=== PATIENT | male | born 1945 | race Caucasian/White ===

== ENCOUNTER 2023-10-04 06:14 | Day surgery (SDC) | payer MEDICARE, SELFPAY ==
[2023-10-04] VITALS (12 sets, daily range): BP systolic 117–144; BP diastolic 69–101; BMI 25.7
[2023-10-04 09:11] LABS: ACT-LR - POC 252 Seconds (116-155)
[2023-10-04 09:33] LABS: ACT-LR - POC 318 Seconds (116-155)
--- NOTE | 2023-10-04 12:22 | ITS.CL.ABL ---
Judicial Reporter - Ablation
Ablation
Procedure Report:
Procedure Report:
PVC / VT ablation:
Mr. Fields is a very pleasant 78 yr old gentleman with highly symptomatic with high burden of PVC with history of SVT /AVNRT who had been managed medically presented today to the EP lab for PVC/VT and SVT ablation
Date of the Procedure:
10/04/2023
Indications:
High burden of symptomatic PVCs, tachycardia and supraventricular tachycardia
Pre-Operative Diagnosis:
Premature ventricular contractions, supraventricular tachycardia
Post-Operative Diagnosis:
Premature ventricular contractions, supraventricular tachycardia (AVNRT) and atrial fibrillation
Procedure Performed:
PVC / Ventricular tachycardia �LVOT ablation
SVT ablation � LVOT / aortic cusp
Cardioversion for atrial fibrillation
Performing Physician:
Lexus Cordova MD
Anesthesia:
See anesthesia records.
Detailed Description of the Procedure:
Written informed consent was obtained from the patient after a full explanation of the risks and benefits of the procedure including the risks of sedation and anesthesia. The patient was brought to the electrophysiology laboratory in stable
condition in fasting state. Continuous electrocardiographic and hemodynamic monitoring was initiated.
The initial rhythm was normal sinus rhythm with PVCs.
The procedure site was meticulously prepared with surgical scrub and allowed to dry with no pooling. Sterile draping was applied to cover the procedure site. The image intensifier was draped with sterile bag and positioned over the patient. After
infusion of local anesthetic, vascular access was obtained under ultrasound guidance and sheaths were placed over guide wire as detailed below.
Sheath and Catheter Placement:
The following catheters / sheaths were placed
Sheaths:
��������������� 8Fr long sheath in right femoral artery
���������������
��������������� 8Fr long sheath in right femoral vein
��������������� 7Fr long sheath in right femoral vein
��������������� 6Fr long sheath in right femoral vein
���������������
Catheters:
��������������� Biosense James Thermocool STSF bidirectional
������������������������������� - at locations of HRA, RV, RVOT. Aorta, LVOT, LV
��������������� Quad Simona in RVa
��������������� CRD quad at HIS and HRA
��������������� Decapolar Bard in the RA, RV and CS
Anticoagulation:
An initial 5000 units of heparin was given after the IV access before placing catheters to the heart and heparin drip was started. An additional 5000 units were given before placing catheters in the arterial system.
The ACT was checked every 30 minutes to keep ACT above 300 throughout the case.
While placing the catheter, patient went into SVT spontaneously 145 bpm. The tachycardia was studied and it had spontaneously A and V activation with preceding HIS signals consistent with AVNRT. The PVC terminated the tachycardia but it transformed
into atrial fibrillation.
Patient was observed for 20 minutes without termination of atrial fibrillation. A total of 5 mg Metoprolol as given but had little effect on the tachycardia.
Cardioversion:
The heparin was started and patient was fully anticoagulated at that point so decision was made to proceed with cardioversion. A 150 J shock was given and sinus rhythm was achieved. No significnat pause noted.
Then the decision was made to do the EP study and map the PVCs.
3D Electroanatomic Mapping:
Using the [employer] STSF catheter was advanced through Agilis sheath into the right atrium. An electroanatomic map (EAM) of the right atrium was created using [employer] Carto mapping system. The catheter was then advanced into the RV and the
EAM of the RV and RVOT was created. The clinical VT was mapped in detail and the best location of the origin was obtained at the septal side of RVOT.
PVC: RV and RVOT mapping:
First, the ablation catheter was placed in the venous system. The RV was mapped and the RVOT area identified. The clinical prominent PVC was noted coming from the LVOT with RVOT septal area as barely early. The best map from the RVOT was adjacent to
the LVOT and was barely earlier then the surface EGMs.
Decision was made to proceed to the LVOT mapping.
PVC: Aorta Cusps and the LV cavity with retrograde approach:
The ablation catheter was advanced via the arterial puncture and the aorta, cusps were mapped. The orifice of the left main was identified and care was taken to avoid entry into the left main. The
Then the ablation was looped in the aorta and advanced into the LV cavity. The LV was mapped. The LVOT had the better signals and the LAT mapped showed that the LV cavity was late and the aortic cusp was earliest. The right aortic cusp and junction
between right and left was the best matched location.
Ablation:
PVC # 1 Ablation in the LVOT ablation:
Ablation catheter (Thermocoseedchange ST SF bidirectional contact force ablation catheter) was introduced via the arterial sheath. The ACT remained above 300. The ablation catheter was placed in the aortic cusp. The aortic cusp area was ablated with 35watts
with good force with SURPOINT index goal of 500.
The PVCs were suppressed.
Further ablation lesions were created on the area for additional consolidated lesions formation.
Few PVCs noted and additional ablation was applied. There was again complete suppression of the PVCs achieved.
Patient was observed for 25 minutes and no PVCs were noted and the decision was made to proceed with EP study and ablation of the AVNRT.
Ablation #2: Electroanatomic 3D Mapping (EAM) and Ablation of AVNRT:
EAM and radiofrequency ablation was performed using a 3.5 mm Thermocool STSF bidirectional ablation catheter (used as non-irrigated system). 3D mapping was performed with Carto 3 mapping software.
A slow pathway AVNRT ablation was pursued. Radiofrequency ablation was performed Themocool STSF bidirectional ablation catheter. Radiofrequency ablation lesions were applied to the anatomic slow pathway area targeting spike and dome electrograms
with > 1:7 A:V ratio just below the His cloud. There were salvos of Junctional beats with 1:1 VA relationship noted. There was no non-conducted beat.
Procedure End:
Patient was recovered.
Following the completion of the EP study, catheters were removed. Protamine 40 mg was given at the end of the procedure and ACT was checked repeatedly.
The femoral artery was closed using Angioseal 8Fr.
The femoral sheath was removed and hemostasis achieved with VASCADE and manual compression after acceptable ACT is achieved.
�
Estimated Blood loss:
10 cc
Specimens Removed:
None.
Implants / Devices:
None
Urine output:
None
Packs / Drains/ Tubes:
None
Instrument / Sponge Count Correct:
Yes
Complications of the Procedure:
None
Condition of Patient at Time of Transfer:
Hemodynamically stable state with no neurological or vascular compromise.
Summary:
PVC ablation (Aortic cusp origin) and SVT ablation of AVNRT
Atrial fibrillation noted (CHADSVasc score of 3 (Age and HTN) - need chronic anticoagulation - Eliquis 5 mg BID
--- NOTE | 2023-10-04 13:49 | W.PN.UPDATE ---
Update Note
Progress Note Update
78 yo WM s/p AVNRT and PVC ablation, new afib induced and CV (same day). He feels good, no cp, sob, ash diet, voiding, R fem site VASCADE/Angioseal c/d/i no HT, soft. He will be started on Eliquis for Afib [id number] =3, dose to start at 4pm
tonight. Activity restrictions reviewed. He has f/u apt with [facility] UN[facility] REGISTERED NURSE in 2 weeks. He is for d/c home after 2pm.
== END 2023-10-04 14:12 | disposition home or self-care (01) ==
LOC: CATH 06:14
PROVIDERS: ATTENDING PHYSICIAN Internal Medicine Cardiovascular Disease; FAMILY PHYSICIAN Family Medicine; OTHER PHYSICIAN Internal Medicine Cardiovascular Disease
DX: I47.20 Ventricular tachycardia, unspecified (principal); I49.3 Ventricular premature depolarization; I47.19 Other supraventricular tachycardia; I48.91 Unspecified atrial fibrillation
CPT/HCPCS: C1730 ×2; C1894; C1732; 76937; 85347; 86850; 86900; 86901; 93005; 93654; 93655; C1760

== ENCOUNTER → 2023-12-03 15:26 | Outpatient (REF) | payer MEDICARE, SELFPAY | LOC: PAVMRI 15:26 | PROVIDERS: ATTENDING PHYSICIAN Neurological Surgery; FAMILY PHYSICIAN Family Medicine | DX: I67.1 Cerebral aneurysm, nonruptured (principal) | CPT/HCPCS: 70544 ==

== ENCOUNTER → 2024-01-17 12:53 | Outpatient (REF) | payer MEDICARE, SELFPAY | LOC: HWRCS 12:53 | PROVIDERS: ATTENDING PHYSICIAN Internal Medicine Cardiovascular Disease; FAMILY PHYSICIAN Family Medicine | DX: I34.0 Nonrheumatic mitral (valve) insufficiency (principal) | CPT/HCPCS: 93306 ==

== ENCOUNTER → 2024-07-17 08:37 | Outpatient (REF) | payer MEDICARE, SELFPAY | LOC: RCS 08:37 | PROVIDERS: ATTENDING PHYSICIAN Internal Medicine Cardiovascular Disease; FAMILY PHYSICIAN Family Medicine | DX: I47.10 Supraventricular tachycardia, unspecified (principal); I49.3 Ventricular premature depolarization | CPT/HCPCS: 93225; 93226 ==

== ENCOUNTER → 2024-07-20 11:21 | Outpatient (REF) | payer MEDICARE, SELFPAY | LOC: HWRAD 11:21 | PROVIDERS: ATTENDING PHYSICIAN Family Medicine | DX: M79.675 Pain in left toe(s) (principal) | CPT/HCPCS: 73660 ==

== ENCOUNTER → 2024-07-24 09:10 | Outpatient (REF) | payer MEDICARE, SELFPAY | LOC: HWRCS 09:10 | PROVIDERS: ATTENDING PHYSICIAN Internal Medicine Cardiovascular Disease; FAMILY PHYSICIAN Family Medicine | DX: I34.0 Nonrheumatic mitral (valve) insufficiency (principal); I34.1 Nonrheumatic mitral (valve) prolapse | CPT/HCPCS: 93306 ==

== ENCOUNTER 2024-09-11 06:38 | Day surgery (SDC) | payer MEDICARE, SELFPAY ==
[2024-09-11] VITALS (17 sets, daily range): BP systolic 115–148; BP diastolic 56–75; BMI 26.9
[2024-09-11] MEDS: NSS 270 ML IV (09:13)
[2024-09-11 10:04] LABS: ACT-LR - POC 310 Seconds (116-155)
[2024-09-11 10:17] LABS: ACT-LR - POC 289 Seconds (116-155)
[2024-09-11] MEDS: NSS 1000 IV (10:45)
--- NOTE | 2024-09-11 10:51 | ITS.CL.PN ---
[facility] - Procedure Note
Procedure
Procedure Note:
CARDIAC CATHETERIZATION REPORT
Date of Procedure: 09/11/2024
Referring: Dr. Rigoberto Carlisle MD
Indication: Preoperative assessment prior to mitral valve repair
PROCEDURE(S)
1. left heart catheterization
2. coronary angiography
3. iFR LCx
4. iFR LAD
5. iFR RCA
ACCESS: 6F right radial artery (closure: radial band)
CATHETERS
1. 6F JR4
2. 6F JL4
3. 6F XB3.75 guide
4. 6F JR4 guide
MODERATE SEDATION: 45 minutes of moderate sedation was utilized. An independent emergency medical service coordinator was present to assist with and help manage the patient's level of consciousness and physiologic status.
HEMODYNAMIC DATA
LV 139/7 (EDP 15) mmHg
AO 137/60 (mean 96) mmHg
CORONARY ANGIOGRAPHY
Dominance: Right
LM: Large vessel with mild disease.
LAD: Large vessel giving rise to two moderate caliber diagonal branches and wrapping around the apex. There is diffuse mild-moderate calcific disease in the proximal vessel.
LCx: Large vessel giving rise to a moderate caliber high rising OM1/ramus, large OM2, moderate caliber OM3, and large LPL branch. There is a 50% stenosis in the ostial LCx. There is severe disease in the ostial/proximal OM1/ramus. There are
otherwise mild luminal irregularities.
RCA: Moderate caliber vessel giving rise to a moderate caliber RPDA. There is a focal 60% stenosis in the distal RCA and otherwise mild diffuse disease.
iFR of ostial LCx
An Omni wire was flushed and zeroed outside the body and then advanced to the proximal left main. The wire introducer was removed and the catheter flushed with saline, after which pressure of the wire and guide were normalized. The wire was advanced
to the proximal circumflex and iFR recorded at 1.0. iFR pullback was performed and on return to the proximal left main, iFR appropriately normalized to ~1.0, confirming lack of wire drift.
iFR of proximal LAD
An Omni wire was flushed and zeroed outside the body and then advanced to the proximal left main. The wire introducer was removed and the catheter flushed with saline, after which pressure of the wire and guide were normalized. The wire was advanced
to the mid LAD and iFR recorded at 0.86. iFR pullback was performed noting a mostly focal pattern with significant contribution from the ostial LAD. On return to the proximal left main, iFR appropriately normalized to ~1.0, confirming lack of wire
drift.
iFR of RCA
An Omni wire was flushed and zeroed outside the body and then advanced to the proximal RCA. The wire introducer was removed and the catheter flushed with saline, after which pressure of the wire and guide were normalized. The wire was advanced to
the distal RCA and iFR recorded at 0.98. iFR pullback was performed and on return to the proximal RCA, iFR appropriately normalized to ~1.0, confirming lack of wire drift.
RADIATION: dose 669.21 mGy; DAP 41.1344 Gy*cm2; fluoroscopy time 13.6 min
CONCLUSIONS
1. Single vessel obstructive coronary artery disease as described with iFR positive proximal LAD
2. Mildly elevated LV filling pressure and no aortic stenosis
RECOMMENDATIONS
1. Secondary prevention of coronary artery disease
2. Consider KWOK to LAD at time of mitral valve repair versus medical management
Copy to: Dr. Rigoberto Carlisle MD (surgeon); Dr. Alberto Saha MD (migration specialist); Dr. Shaggy Mejia MD (PCP)
Signed: Mark Dominguez MD, PhD
== END 2024-09-11 15:35 | disposition home or self-care (01) ==
LOC: CATH 06:38
PROVIDERS: ATTENDING PHYSICIAN Internal Medicine Cardiovascular Disease; FAMILY PHYSICIAN Family Medicine; OTHER PHYSICIAN Internal Medicine Cardiovascular Disease
DX: I08.3 Combined rheumatic disorders of mitral, aortic and tricuspid valves (principal); I25.10 Atherosclerotic heart disease of native coronary artery without angina pectoris; Z01.818 Encounter for other preprocedural examination; I70.0 Atherosclerosis of aorta
CPT/HCPCS: 99152; 99153; 93799; 93312; 93320; 93325; 85347; 93458; C1769; C1887; C1894; Q9967

== ENCOUNTER → 2024-09-25 09:33 | Outpatient (REF) | payer MEDICARE, SELFPAY | LOC: HWRAD 09:33 | PROVIDERS: ATTENDING PHYSICIAN Thoracic Surgery (Cardiothoracic Vascular Surgery); FAMILY PHYSICIAN Family Medicine | DX: I25.10 Atherosclerotic heart disease of native coronary artery without angina pectoris (principal); Z01.810 Encounter for preprocedural cardiovascular examination; I34.0 Nonrheumatic mitral (valve) insufficiency | CPT/HCPCS: 71250 ==

== ENCOUNTER 2024-09-29 05:00 | Inpatient (IN) | payer MEDICARE, SELFPAY ==
[2024-09-02 08:17] VITALS: BMI 27.1
[2024-09-02 08:58] LABS: % Basophils 0.6 % (0-2); % Immature Granulocytes 0.4 % (0-0.5); % Lymphocytes 24.1 % (20.5-51.1); % Neutrophils 57.9 % (42.2-75.2); Absolute Eosinophils 0.4 10^3/uL (0-0.7); Absolute Lymphocytes 1.2 10^3/uL (1.2-3.4); Absolute Monocytes 0.5 10^3/uL (0.1-0.6); Absolute Neutrophils 2.9 10^3/uL (1.4-6.5); Hemoglobin 12.9 g/dL (13.0-18.0); Mean Corp Hgb Conc. 34.9 g/dL (33.0-37.0); Mean Corpuscular Hgb 32.3 pg (27.0-31.0); Mean Corpuscular Volume 92.7 fL (80.0-94.0); Mean Platelet Volume 9.7 fL (7.4-10.4); Nucleated Red Blood Cells % 0 % (-); Platelet Count 210 10^3/uL (130-400); Red Blood Cell Count 3.99 10^6/uL (4.70-6.10); Red Cell Dist. Width 11.9 % (11.5-14.5)
[2024-09-02 09:01] LABS: Urine Albumin Negative (Neg - Trace); Urine Bilirubin Negative (Negative); Urine Character Clear (Clear); Urine Color Yellow; Urine Glucose Negative (Negative); Urine Ketone Negative (Negative); Urine Leukocyte Negative (Negative); Urine Nitrite Negative (Negative); Urine Occult Blood Negative (Negative); Urine Urobilinogen Negative (Neg - 1+)
[2024-09-02 09:05] LABS: APTT 34.4 Sec (23.4-35.0); INR 1.09; PT 14.6 Sec (11.4-14.6)
[2024-09-02 09:37] LABS: ALT (SGPT) 24 U/L (0-50); AST (SGOT) 26 U/L (17-59); Albumin 4.8 g/dl (3.5-5.0); Alkaline Phosphatase 77 U/L (38-126); Blood Urea Nitrogen 11 mg/dl (9-20); Calcium 9.5 mg/dl (8.4-10.2); Carbon Dioxide 26 mmol/L (22-30); Chloride 93 mmol/L (98-107); Direct Bilirubin 0.2 mg/dl (0.0-0.4); Estimated Creatinine Clearance 94 ml/min; Glucose 87 mg/dl (70-99); Potassium 4.8 mmol/L (3.5-5.1); Sodium 129 mmol/L (135-145); Total Bilirubin 1.3 mg/dl (0.2-1.3); Total Protein 7.8 g/dl (6.3-8.2); eGFR > 60.00
[2024-09-02 10:25] LABS: Glycohemoglobin (HgbA1c) 5.1 % (4.0-5.6)
--- NOTE | 2024-09-02 10:30 | CM ---
Met w/ patient during PATs for MVR.
Pt. resides w/ spouse in a private, 1 st[address] home w/ 1-2 LITZY. Functionally, patient is indep. at baseline with ADLs, mobility without the use of any assisted device.
Pt. has no DME nor O2 in the home.
Pt. has RX plan and uses [facility] [place] [facility] (mail order) for prescription needs.
Reviewed pre and post op routines.
Soap, shower instructions and Cardiac Surgery booklet provided.
Reviewed post op restrictions to include lifting, driving, flying and sternal precautions.
Discussed post op MD appointments, Cardiac Rehab and visit from [facility]itional [facility] RN.
Plan is for MVR on 09/29
Antic. DC to home w/ [facility] Transitional [facility] RN.
CM to follow.
[2024-09-29] VITALS (12 sets, daily range): BP systolic 86–144; BP diastolic 53–81; BMI 26.0
[2024-09-29] MEDS: PROTONIX 40 MG PO (06:01)
[2024-09-29] MEDS: MAGNESIUM OXIDE 500 MG PO (06:02)
[2024-09-29] MEDS: LOPRESSOR 12.5 MG PO (06:02)
--- NOTE | 2024-09-29 06:06 | W.CVOR.SURPR ---
CVOR Surgeon Immed Pre Op
-
I have examined this patient prior to performance of the scheduled procedure.
The patient's condition is unchanged from the time of the dictated/written History and
Physical and the patient is able to undergo the scheduled procedure.
Sternotomy MV repair, LA MAZE, LAZARUS Clip, CABG x 2 (LAD and OM1)
[2024-09-29] MEDS: BACTROBAN 2% OINTMENT 1 APPLIC NASAL (06:07)
--- NOTE | 2024-09-29 06:20 | PTCARENOTE ---
pt admitted to 3. admission questions and home med reconciliation complete. pt clipped and cleaned w/ CHG wipes. pt confirmed NPO since midnight and took the 2 CHG showers at home. pt metoprolol decreased to 12.5mg d/t low HR. CTPA Ed Garima
made aware. awaiting CVOR
[2024-09-29 07:26] LABS: ACT+ - POC 120 Seconds (82-134)
[2024-09-29 07:32] LABS: Urine Albumin Negative (Neg - Trace); Urine Bilirubin Negative (Negative); Urine Character Clear (Clear); Urine Color Yellow; Urine Glucose Negative (Negative); Urine Ketone Negative (Negative); Urine Leukocyte Negative (Negative); Urine Nitrite Negative (Negative); Urine Occult Blood Negative (Negative); Urine Urobilinogen Negative (Neg - 1+)
[2024-09-29 08:53] LABS: ACT+ - POC 603 Seconds (82-134)
[2024-09-29 08:55] LABS: B.E. - POC 0.8 mmol/L; Glucose - POC 78 mg/dl (70-99); HCO3 - POC 26 mmol/L (21-28); Hematocrit - POC 34 % PCV (42-52); Hemodilution- POC No; Hemoglobin Calculated - POC 11.6; Ionized Calcium - POC 1.24 mmol/L (1.15-1.33); Lactate - POC 0.48 mmol/L (0.36-0.75); O2 Saturation %Calculated-POC 99.7 % (94-98); PCO2 - POC 41 mmHg (35-48); PO2 - POC 199 mmHg (83-108); Potassium - POC 3.5 mmol/L (3.5-5.1); Sodium - POC 137 mmol/L (136-145); Specimen Type - POC Arterial; pH - POC 7.41 (7.35-7.45)
[2024-09-29 09:12] LABS: ACT+ - POC 826 Seconds (82-134)
[2024-09-29 09:32] LABS: B.E. - POC 6.6 mmol/L; Glucose - POC 116 mg/dl (70-99); HCO3 - POC 34 mmol/L (21-28); Hematocrit - POC 29 % PCV (42-52); Hemodilution- POC Yes; Ionized Calcium - POC 1.08 mmol/L (1.15-1.33); Lactate - POC < 0.30 mmol/L (0.36-0.75); PCO2 - POC 60 mmHg (35-48); PO2 - POC 554 mmHg (83-108); Potassium - POC 3.6 mmol/L (3.5-5.1); Sodium - POC 135 mmol/L (136-145); Specimen Type - POC Arterial; pH - POC 7.36 (7.35-7.45)
[2024-09-29 09:42] LABS: ACT+ - POC 663 Seconds (82-134)
[2024-09-29 10:06] LABS: ACT+ - POC 511 Seconds (82-134)
[2024-09-29 10:26] LABS: B.E. - POC 3.5 mmol/L; Glucose - POC 175 mg/dl (70-99); HCO3 - POC 29 mmol/L (21-28); Hematocrit - POC 30 % PCV (42-52); Hemodilution- POC Yes; Ionized Calcium - POC 1.08 mmol/L (1.15-1.33); Lactate - POC 0.71 mmol/L (0.36-0.75); O2 Saturation %Calculated-POC 99.9 % (94-98); PCO2 - POC 50 mmHg (35-48); PO2 - POC 343 mmHg (83-108); Potassium - POC 4.6 mmol/L (3.5-5.1); Sodium - POC 134 mmol/L (136-145); Specimen Type - POC Arterial; pH - POC 7.38 (7.35-7.45)
[2024-09-29 10:35] LABS: ACT+ - POC 497 Seconds (82-134)
[2024-09-29 10:57] LABS: B.E. - POC 2.4 mmol/L; Glucose - POC 173 mg/dl (70-99); HCO3 - POC 29 mmol/L (21-28); Hematocrit - POC 30 % PCV (42-52); Hemodilution- POC Yes; Hemoglobin Calculated - POC 10.2; Ionized Calcium - POC 1.11 mmol/L (1.15-1.33); Lactate - POC 0.86 mmol/L (0.36-0.75); O2 Saturation %Calculated-POC 99.9 % (94-98); PCO2 - POC 53 mmHg (35-48); PO2 - POC 306 mmHg (83-108); Potassium - POC 4.2 mmol/L (3.5-5.1); Sodium - POC 136 mmol/L (136-145); Specimen Type - POC Arterial; pH - POC 7.34 (7.35-7.45)
[2024-09-29 11:05] LABS: ACT+ - POC 430 Seconds (82-134)
--- NOTE | 2024-09-29 11:29 | CM ---
Chart reviewed. Patient is in the OR today. Patient is independent of ADLS, lives with his in a 1 STH, 1-2 LITZY, 0 DME. Plan is for the patient to return home with CT Transitional RN. CM to follow
[2024-09-29 11:46] LABS: B.E. - POC 2.6 mmol/L; Glucose - POC 173 mg/dl (70-99); HCO3 - POC 30 mmol/L (21-28); Hematocrit - POC 28 % PCV (42-52); Hemodilution- POC Yes; Hemoglobin Calculated - POC 9.4; Ionized Calcium - POC 1.11 mmol/L (1.15-1.33); Lactate - POC 0.82 mmol/L (0.36-0.75); O2 Saturation %Calculated-POC 99.9 % (94-98); PCO2 - POC 59 mmHg (35-48); PO2 - POC 386 mmHg (83-108); Potassium - POC 4.3 mmol/L (3.5-5.1); Sodium - POC 138 mmol/L (136-145); Specimen Type - POC Arterial; pH - POC 7.31 (7.35-7.45)
[2024-09-29 11:48] LABS: ACT+ - POC 120 Seconds (82-134)
--- NOTE | 2024-09-29 12:07 | W.PN.CT.SURG ---
CT Surgery Operative Note
-
CARDIAC SURGERY OPERATIVE REPORT
Preoperative Diagnosis: Severe mitral valve insufficiency secondary to degeneration, multivessel coronary artery disease, paroxysmal atrial fibrillation
Postoperative Diagnosis: Same
Procedure(s) Performed:
1. Standard sternotomy with aortic and bicaval cannulation
2. CABG x 2 [in situ KWOK to LAD, Ao to RSVG to OM1)
3. Internal mammary artery harvesting
4. Radical mitral valve repair [autologous pericardial patch to leaflet and annulus, Byhalia-Ebenezer cord reinforcement to the posterior leaflet, cleft closure between P1 and P2, 34 mm band annuloplasty]
5. Open surgical left atrial maze [RF ablation and cryo]
6. Left atrial appendage exclusion [35 mm device]
7. Endoscopic saphenous vein harvest
8. Placement of temporary atrial ventricular pacing wires
9. Transesophageal echocardiography
10. Transonic flow probe assessment of vein graft and arterial graft
Date of Surgery: 09/29/2024
Comorbidities:
1. Severe mitral valve insufficiency secondary to degeneration, type II pathology with area of calcification
2. Paroxysmal atrial fibrillation on chronic anticoagulation
3. History of DVTs
4. History of brain aneurysm
5. History of SVT
6. Degenerative disc disease
7. Multi vessel CAD
Attending Surgeon: Rigoberto Carlisle MD, MS
Assistants: Marsha Patton PA-C (present and necessary to topographical field assistant, retraction, suction, exposure, suture management, endoscopic vein harvest, and wound closure under my direction)
Anesthesiology: Enrrique Krishnamurthy MD and Amilcar Zepeda CRNA
Scrub and Circulating RNs: Kobi Rossi, JESSIE with Mariana Fernandez, RN, Cy Duenas, JESSIE
Toy Assembler: Emmy Baez CCP
Anesthesia: GETA
EBL: per perfusion records
Products: None, 2 bowls of cell saver scavenged from the field
CPB Time: 155 minutes
Aortic Cross Clamp Time: 135 minutes
Indication(s) for Procedures: This is a 79-year-old male with known mitral valve prolapse with insufficiency and history of frequent PACs, he also developed paroxysmal atrial fibrillation and is on chronic anticoagulation. Given his progression of
atrial fibrillation and severity of his mitral valve insufficiency, he met class I indication for surgical intervention. Plan was to address his A-fib and CAD at time of surgery as well. As he had a sizable area of calcification along the body of
P2 and P3, there was a higher likelihood for replacement of his mitral valve.
Mitral Valve Description: Thickening of both the anterior and posterior leaflets, mitral annular calcification towards the P2 and the P3 segment with extension of calcium into and infiltrating into the body of the P2 and P3 scallops. This kept the
scallops tented up effectively causing prolapse with the torrential direct as directed anteriorly towards the anterior lateral trigone.
Findings: His left ventricular ejection fraction preoperatively was preserved at 55%. Following surgery his EF remained the same at 55% with no new regional wall motion abnormalities. His internal mammary artery was harvested in a skeletonized
fashion and had excellent flow. After bypassing with the vein graft, test dosing antegrade was given down the graft to a pressure of 80 mmHg yielding a flow of approximately 40 cc a minute. There is excellent hemostasis and flow. There was good
visual flow in the LAD territory after removal of the bulldog clamp. The bulldog was then reapplied for the rest of the case. A full left atrial maze was performed, please see the ablation lines below. His left atrial appendage was excluded after
verifying that it was free of any thrombus or debris preoperatively using a 35 mm device. After accessing the mitral valve through Sondergaard's groove, there was severe calcification affecting the body of P2 and P3 scallops. There is also some
mitral annular calcification. I initially debrided that area and then reapproximated the leaflet in a primary fashion using 5-0 Prolene. However this yielded a suboptimal result and so I opted to cut out all the calcium and to debride the area
using a rongeur's. A 2 x 2-1/2 cm patch of autologous pericardium was taken sharply ensuring all the fat and debris was removed from the rough side of the pericardium. I then parachuted this into place by placing 5-0 sutures at each apex. The 5-0
sutures were then run circumferentially feeling in the area of debridement at P2 and P3 essentially reconstructing the P2 and P3 scallops. There is also a cleft between P2 and P1 which was approximate with two 5-0 Prolene sutures. After testing
the valve and placement of annular sutures, I noticed that there was some prolapsing of the posterior leaflet and the coaptation margin appeared to be relatively high. 2 pairs of CV 4 Byhalia-Ebenezer sutures were placed one to the anterior lateral
papillary muscle head and the other to the posterior medial papillary muscle head to anchor the P2 and P3 segment down towards the ventricle. Testing with inflation of the ventricle yielded acceptable pressures and coaptation. After coming off
cardiopulmonary bypass, there was trace, trace to mild residual mitral valve insufficiency at a cleft between P1 and P2, no systolic anterior motion, and a mean gradient of 1 across the valve. Overall I felt this was acceptable and opted not to go
back. The left atrial appendage is found to be totally occluded without residual flow and no stump. Cardiac index had improved from 2.1-2.5 without inotropic support. He was initially requiring some pacing but then returned to his sinus rhythm.
No blood products were given. Flow probe assessment of the vein graft yielded a mean flow in 11 with a pulse index of 4.8, the KWOK graft had a mean flow of 16 cc a minute with a pulse index of 3.1.
Ablation Lines:
1. Box lesion to posterior LA wall
2. LAZARUS lesion + LAZARUS Exclusion + Division of Ligament of Bhaskar
3. Coronary sinus lesion
4. Posterior mitral annular line toward P2/P3
Specimen(s): None.
Prosthesis:
1. 35mm AtriCure LAZARUS Clip, SN [id number]
2. 34mm Physio Flex Band, SN [id number]
3. Autologous Pericardium for Patching
4. CV4 Goretex x 2 with multiple 5-0 prolenes
Description of Procedure: The patient was taken to the operating room. Their identity and procedure to be performed were verified and they were positioned supine on the operating table. Induction via general anesthesia with endotracheal intubation
was performed and central venous access and arterial monitoring were inserted. A preoperative transesophageal echocardiogram was performed to assess cardiac function and valvular function. The patient was then prepped and draped from chin to feet in
a sterile fashion. A preoperative time-out was performed with all members of the team present. A midline chest incision was performed along with median sternotomy. Simultaneous access to the right lower extremity was performed in order to
endoscopically harvest vein. At that point 5000 units of heparin was given. The KWOK was harvested after placing a Rultract in order to elevate the left hemithorax. It was harvested in a skeletonized fashion, division of the distal end yielded
excellent flow. The stent was then clipped with a medium clip and then placed back into a Ray-Beverly soaked with Afrin. The Rultract was then exchanged for a median sternotomy retractor. The innominate vein was isolated. Full heparinization was
given (a total of 57,000 units). We created a pericardial well. The aortic cannulation site was chosen where it was soft, pliable, and free of calcium. Cannulation was performed with an arterial cannula in the ascending aorta, angled metal tip
cannular in the superior vena cava and straight bendable cannula in the inferior vena cava. The arterial cannula line had an appropriate bounce and correlating pressures. Next, a root vent/antegrade cannula was inserted into the ascending aorta. The
ACT was confirmed to be over 400 and retrograde autologous priming was performed before commencing cardiopulmonary bypass. At this point the SVC was away from the RPA. The oblique sinus was also developed. The encompass clamp was then
passed underneath the SVC and IVC across the transverse and oblique sinuses, respectively. Using the encompass clamp 3 successful pairs of ablation were performed. The pulmonary artery was away from the aorta to facilitate a clamp site.
Sondergaard�s groove was developed. The aortic cross-clamp was placed after decreasing the flow on the bypass and mean arterial pressure. A total of 1.2L initial dose of antegrade Del-Nido cardioplegia solution was given and planned for re-dosing
every 60 minutes as necessary. There was rapid electro-mechanical arrest of the heart at 300cc of cardioplegia. The left ventricle was observed for distention on echocardiogram and manual palpation. Cold slush was placed into a lap on the RV and we
systemically cooled to 34 degrees centigrade. Once the heart was fully arrested was rotated medially and the left atrial appendage tip was cut open. Using the encompass clamp, 2 additional pairs of ablation lines were performed into the superior
pulmonary vein on the left. The appendage was then clipped with a 35mm device flush to the base.
Since I had the heart already exposed in order to present the OM 1 target, this was prepared using a Shannon blade and a small coronary tree artery was created. This was enlarged with Israel scissors and end-to-side anastomosis was created after
beveling the vein graft. This was done with 7-0 Prolene in a running fashion. Test dose of antegrade demonstrated excellent mean flow and hemostasis. The graft was measured to length in order to accommodate an aortic proximal. Next the LAD was
prepared in a similar fashion. The distal end of the KWOK graft was beveled accordingly and an end-to-side anastomosis was created with 7-0 Prolene in a running fashion. Release of the bulldog clamp demonstrated excellent visual flow in the LAD
territory with warming up of the apex and the anterior lateral wall. I then turned my attention towards the mitral valve. Carbon dioxide was used to flood the field. The mitral valve was access via the Sondergaard's groove followed by valve
analysis. At this point taking the cryoprobe, I performed 2 additional ablation lines of the coronary sinus and the mitral annular line. The mitral valve was repaired as described above. The left ventricular vent was repositioned across the
mitral valve into the left ventricular and the left atrium was closed with a 3-0 prolene. The root was temporary filled up with cardioplegia and the proximal anastomosis was created after performing 1 aortotomy which was enlarged with a 4.0 mm
punch. The vein graft was beveled accordingly and using 6-0 Prolene in an end-to-side anastomosis the proximal was completed.
De-airing maneuvers were performed and temporary bipolar ventricular pacing wires were placed on the base of the right ventricle along with atrial pacing wires at the SVC right atrial junction underneath the aorta. The patient was placed in a
Trendelenburg position and flows on bypass were lowered. The aortic cross clamp was removed and flows were slowly brought back up. The left atrial suture line and coronary anastomoses were hemostatic. Transesophageal echocardiography revealed no
evidence of systolic anterior motion and ventricular function was normal. Once de-airing was satisfactory the left ventricular and root vents were removed. After verifying acceptable parameters, we initiated weaning from cardiopulmonary bypass. Once
we were off cardiopulmonary bypass, the venous cannulas was clamped and removed sequentially. A test dose of protamine was administered and the patient was monitored for any adverse reaction before resuming protamine. Once half of the protamine dose
was delivered, pump suckers were turned off and the systolic blood pressure was lowered for aortic decannulation. The aortic cannula was removed and purse strings were tied down. All cannulation sites were oversewn with a 4-0 prolene. The left
atrial suture line was inspected and hemostasis was confirmed. Mediastinal hemostasis was obtained. Two #24 Chadd drains were placed within the pericardium with a single #19 Chadd drain to the left hemithorax. The sternum was approximated with 4 #7
single and 3 #8 double stainless steel wires. Fascia was approximated with #1 vicryl suture. The subcutaneous, dermis and epidermis were closed in layers in a running fashion. The skin wound was cleansed and dressed.
All instrument, sponge, and needle counts were confirmed to be correct x 2 at the end of the operation. The patient was transferred to the cardiac intensive care unit in critical but stable condition.
I, Dr. Rigoberto Carlisle, was present, scrubbed for, and performed all critical elements of this procedure.
Rigoberto Carlisle MD, MS
Cardiothoracic Surgeon
[facility]
This dictation was created using the [employer] dictation system. Please excuse any grammatical, typographical, or 'sound alike' errors
[2024-09-29 12:37] LABS: B.E. - POC -2.4 mmol/L; Glucose - POC 180 mg/dl (70-99); HCO3 - POC 22 mmol/L (21-28); Hematocrit - POC 29 % PCV (42-52); Hemodilution- POC Yes; Hemoglobin Calculated - POC 9.8; Ionized Calcium - POC 1.26 mmol/L (1.15-1.33); Lactate - POC 2.53 mmol/L (0.36-0.75); O2 Saturation %Calculated-POC 99.8 % (94-98); PCO2 - POC 37 mmHg (35-48); PO2 - POC 219 mmHg (83-108); Potassium - POC 3.8 mmol/L (3.5-5.1); Sodium - POC 138 mmol/L (136-145); Specimen Type - POC Arterial; pH - POC 7.39 (7.35-7.45)
[2024-09-29 12:50] LABS: Glucose - Point of Care 135 mg/dl (70-99)
[2024-09-29 12:58] LABS: HCO3 24.3 mmol/L (21-28); Ionized Calcium 1.14 mMOL/L (1.15-1.33); PCO2 42 mmHg (35-48); PO2 157 mmHg (83-108); Potassium 3.9 mMOL/L (3.5-5.1); Sodium 131 mMOL/L (136-145); pH 7.37 (7.35-7.45)
--- NOTE | 2024-09-29 12:59 | CON.INTV ---
Consultation
Consultation Request
Date/Time Consultation Requested: 09/29/2024
Date/Time Consultation Performed: 09/29/2024
Requesting Provider: Rigoberto Carlisle
Performing Provider: Walter Snow
Reason for Consultation: CABG and MV repair
Medical History
-
Chief Complaint: Mitral valve prolapse
History of Present Illness:
Patient is a 79-year-old gentleman with known history of mitral valve prolapse as well as paroxysmal A-fib and SVT in the past status post ablation. Patient follows up with cardiology services outpatient and had echocardiogram with worsening mitral
regurgitation noted earlier this year. This was followed by a cardiac catheterization which showed single-vessel coronary artery disease. Patient was subsequently referred to cardiothoracic surgery service for surgical valve repair as well as
coronary artery bypass graft. Postsurgery, patient admitted to cardiovascular ICU. Patent Lawyer consult was requested for further input.
Past medical history. Intracranial aneurysm, monitored at [facility]. History of DVT in 2010 following trauma. Paroxysmal SVT and paroxysmal atrial fibrillation
Past surgical history. Bilateral knee replacement, nasal polyp surgery, appendectomy, right index finger PIP joint arthroplasty, cardiac ablation for paroxysmal SVT and A-fib (09/2023)
Social history, take a glass of wine most days of the week, prior history of smoking, quit 40 years ago
Allergies / Home Medications
Allergies
Allergy/AdvReac Type Severity Reaction Status Date / Time
adhesive tape Allergy Rash Verified 09/11/24 07:46
morphine Allergy 'it just Verified 09/11/24 07:46
doesn't
work'
naproxen Allergy diarrhea Verified 09/11/24 07:46
Sulfa (Sulfonamide Allergy Jesus-Kyle Verified 09/11/24 07:46
Antibiotics) Syndrone
Home Medications
�Medication �Instructions �Recorded �Confirmed �Last Taken �Type
Lactobacillus acidophilus 10 10,000 mmu cells PO DAILY 10/04/23 09/29/24 09/21/24 08:00 History
billion cell capsule (Probiotic)
apixaban 5 mg tablet (Eliquis) 5 mg PO BID #60 tabs 10/04/23 09/29/24 09/21/24 20:00 Rx
ascorbic acid (vitamin C) 500 mg 500 mg PO DAILY 10/04/23 09/29/24 09/27/24 08:00 History
tablet
cholecalciferol (vitamin D3) 125 125 mcg PO DAILY 10/04/23 09/29/24 09/27/24 08:00 History
mcg (5,000 unit) tablet
multivitamin 1 tab PO DAILY 10/04/23 09/29/24 09/21/24 08:00 History
valsartan 80 1 tab PO DAILY 08/28/24 09/29/24 09/27/24 08:00 History
mg-hydrochlorothiazide 12.5 mg
tablet
Review of Systems
-
Unable to Obtain full review of systems at this time due to: Patient Intubation
Vitals / Labs / Diagnostic Testing
Vital Signs
Temp Pulse Resp BP Pulse Ox
97.7 F 63 16 144/81 100
09/29/24 05:41 09/29/24 05:41 09/29/24 05:41 09/29/24 05:41 09/29/24 05:41
Diagnostic Testing:
Physical Exam
-
HEENT: Normocephalic
Cardiovascular: S1/S2 and Other (Paced rhythm on the monitor )
Respiratory: Clear
GI: Soft
Neurology: Other (Intubated, sedated on Precedex)
Skin: Warm
General: Comfortable
Assessment
-
79-year-old gentleman with severe mitral regurgitation and single-vessel coronary obstructive disease, s/p CABG x 2, radical mitral valve repair, left atrial appendage exclusion with surgical left atrial maze procedure, POD #0
Titrate off pressors per protocol. Off Levo now, currently on Nitro infusion @5
ECHO and SKIP reviewed, severe MR pre-op
PA catheter readings reviewed
Management of chest tubes per primary service, sanguinous drainage
Intubated/sedated, initiate SAT when able.
Pain control
RASS goal of 0 to -1
Intubated for procedure, SBT trial when patient able to spontaneously breath
Current vent settings: SIMV, 550/12/40%/5, currently breathing at 12/min
ABG(s) reviewed, 7.37, 42, 157. Mixed Venous Sat 79.7%
CXR with no obvious opacities/infiltrates, chest tubes in place
Extubate per protocol
Maintain supplement oxygen as needed
No prior history of pulmonary disease
Can add nebulizers if needed
Aspiration precautions
Encouraged incentive spirometry, OOB/ambulation/early mobility
Advance diet as tolerated following extubation
GI prophylaxis, currently on Protonix
Monitor critical I/O's
Lee/chest tube output
Hb/10.5 post-op
Trend CBC for now
Can transfuse if indicated for Hb <7, plt <50 in surgical patients
DVT prophylaxis including SCDs
Insulin protocol initiated and ongoing, anticipate transition to s.c. in AM.
Medical co-morbidities:
# Severe Mitral valve prolapse with Regurgitation
-s/p MVR
# Paroxysmal SVT and Atrial Fibrillation s/p ablation.
-Eliquis resumption when cleared by surgery service
-Currently paced rhythm on the monitor (s/p maze procedure 09/2024)
# CAD, single vessel. s/p CABG
-Currently on ASA, Plavix and Statins along with Metoprolol 12.5 mg BID
Critical Care time 63 mins -- The patient is admitted for acute critical illness for the treatment of vital organ failure and/or prevention of further life-threatening conditions. Total care includes time spent in review of history, physical exam,
medications, hemodynamic/ventilator parameters, laboratory data, imaging and discussion with house staff, pharmacy, respiratory therapy, welt sole layer, and nursing.
Data
CT Chest 09/2024: 1. Clear lungs, without evidence of lobar pneumonia, pleural effusion, or significant pulmonary nodule.
2. Severe coronary arterial calcification, consistent with the patient's history of coronary artery disease.
3. Cholelithiasis.
Cardiac Cath: 09/2024: 1. Single vessel obstructive coronary artery disease as described with iFR positive proximal LAD
2. Mildly elevated LV filling pressure and no aortic stenosis
RECOMMENDATIONS
1. Secondary prevention of coronary artery disease
2. Consider KWOK to LAD at time of mitral valve repair versus medical management
SKIP 09/2024: Normal left ventricular chamber size. Normal left ventricular systolic
function. Normal regional wall motion. Normal left ventricular wall thickness.
Left ventricular ejection fraction is 60%.
Normal right ventricular size and function.
Moderately dilated left atrium.
Thickened mitral valve leaflets are present with posterior mitral annular
calcification. There is tethering of the posterior leaflet at P2 and P3 with
significant P2/P3 prolapse. There is an eccentric jet of moderate to severe
mitral regurgitation. Peak E wave velocity 77 cm/s. Mean mitral gradient 3
mmHg.
Thickened aortic valve with normal leaflet excursion. Mild aortic
regurgitation.
ECHO 09/2024: Normal left ventricular systolic function estimated ejection fraction 55 to 60%
Mitral valve prolapse with moderate to severe eccentric mitral regurgitation
Mild aortic stenosis. Mild aortic regurgitation.
Mild tricuspid regurgitation.
Compared to the previous report 01/17/2024 there is increased severity of mitral
regurgitation. MR now reported as moderate to severe. Previously reported as
moderate. An additional jet of mitral regurgitation is noted in the
parasternal long axis view which is not seen on the previous study.
[2024-09-29 13:00] LABS: Hemoglobin 10.5 g/dL (13.0-18.0); Platelet Count 105 10^3/uL (130-400)
[2024-09-29] MEDS: LR 250 ML IV ×4 (13:00→16:00)
--- NOTE | 2024-09-29 13:00 | PTCARENOTE ---
SALON PROFESSIONAL notifiedof CI 1.86, IVF 250bolus given per SALON PROFESSIONAL order.
[2024-09-29 13:06] LABS: INR 1.71; PT 20.2 Sec (11.4-14.6)
[2024-09-29 13:07] LABS: APTT 31.3 Sec (23.4-35.0)
[2024-09-29 13:08] LABS: Mixed Venous O2 Saturation 79.7 %
[2024-09-29 13:10] LABS: Blood Urea Nitrogen 10 mg/dl (9-20); Estimated Creatinine Clearance 111 ml/min; Glucose 128 mg/dl (70-99); Magnesium 2.6 mg/dl (1.6-2.3)
[2024-09-29] MEDS: ANCEF 10 IV ×2 (13:22→13:23)
[2024-09-29] MEDS: NEURONTIN PO (13:24)
[2024-09-29] MEDS: NSS 500 IV (13:25)
[2024-09-29] MEDS: TYLENOL PO (13:26)
[2024-09-29] MEDS: CALCIUM GLUCONATE 100 IV (13:26)
[2024-09-29] MEDS: KCL 50 IV ×2 (13:26→14:59)
--- NOTE | 2024-09-29 13:47 | PTCARENOTE ---
Addendum entered by Melanie Coronel RN 09/29/24 14:02:
Saved too soon. AV wires set to DDI 74/15/10. Abdomen soft, round, nontender. Hypoactive BS. Carvalho intact draining adequate amounts of praneeth urine. Right IJ cordis with swan floated to 45cm. Left radial roro intact. All lines flushed, leveled.
Right hand 18g PIV intact. NSS KVO infusing. Sternal incision approximated with skin glue. CT covered, dressing CDI. Right groin puncture site approximated. Right SVG harvest site approximated with skin glue, LOR cdi. Post op EKG, labs, and CXR
completed.
Original Note:
Assumed care of patient from CVOR team bedside report received after MVR and CABG x2, patient on vent,V paced. Pt unresponsive, PERRLA 3mm brisk. Intuabted with 8.0 ETT 23cm at the lip. SIMV 40% 12 550 5/5. POX 99%. Lungs clear anteriorly. Left
plerual chest tube to -20cm suction draining red fluid. No air leak, tidaling, or crepitus. Mediastinal chest tubes x2 y-sited to 1 atrium to -20cm suction draining red fluid. No air leaks, tidaling, crepitus. V-paced on tele via epicardial AV wires
set to 74/. Complete heart block with rates in the 30s underneath pacer. BP supported with levo. Pericardial Rub. Bilateral radial pulses palpable. Bilateral DP pulses weakly palpable. No edema noted. Mouth care and carvalho completed [place] @ 45 Co
3.94 CI1.86 on arrival. Labs sent, precedex at .6 mcg/kg/hr, levo titrated for SBP 90-110, Insulin per protocol currently at 3unit/hr. K+ and Ca+ electrolytes replaced per protocol. Assessment completed and see details in workflow.
--- NOTE | 2024-09-29 14:00 | PTCARENOTE ---
CHILD HEALTH ASSOCIATE notifed of CI 1.59, bolus ivf given 250ml
[2024-09-29 14:03] LABS: Glucose - Point of Care 130 mg/dl (70-99)
--- NOTE | 2024-09-29 14:17 | W.PN.CD ---
Today's Communication / Plan
-
Wean pressors as able
underlying CHB monitor possible need for PPM
Likely extubated later today
Impression / Plan
-
A/P: 79 yo male with MVP with progressive MR, PVCs, mild and paroxysmal AF who is here for MVR with CABG.
Severe MR s/p MV repair and CABG with KWOK to LAD and SVG to OM1, LA MAZE and LAZARUS exclusion 35 mm Device
- Underlying rhythm is CHB
- Pacer on; possible need for PPM
- wean pressors as able
- aspirin statin
pAF
- likley will need Eliquis once OK from bleeding perspect
HTN
- once able restart home BP meds
Physical Exam
Vital Signs/Labs
Vital Signs
Temp Pulse Resp BP Pulse Ox
96.1 F L 74 12 144/81 100
09/29/24 14:00 09/29/24 12:55 09/29/24 12:55 09/29/24 05:41 09/29/24 14:00
09/28/24 09/29/24 09/30/24
06:59 06:59 06:59
Actual Weight 191 lb 9.307 oz
09/29/24 12:41
PT 20.2 Sec (11.4-14.6) H 09/29/24 12:41
INR 1.71 09/29/24 12:41
APTT 31.3 Sec (23.4-35.0) 09/29/24 12:41
Magnesium 2.6 mg/dl (1.6-2.3) H 09/29/24 12:41
Physical Exam
Constitutional: No acute distress and Other (sedated)
EENT: Anicteric
Cardiovascular: Rhythm & rate is regular (paced) and Rub present
Respiratory: Respiratory effort normal and Other (coarse b/s)
GI: Soft
Neuro/Psych: Other (intubated )
Data Reviewed
-
Date of Service: September 29, 2024
EKG: Tracing Personally Visualized and interpreted
Echo: Report Reviewed by me
Labs: Labs Reviewed by me
Critical Care Time (in minutes): 31
--- NOTE | 2024-09-29 15:00 | PTCARENOTE ---
CROP QUANTITATIVE GENETICIST notifed of CI 1.68, ivf bolud given per CROP QUANTITATIVE GENETICIST order.
[2024-09-29 15:06] LABS: Glucose - Point of Care 86 mg/dl (70-99)
[2024-09-29 15:48] LABS: B.E. - POC 0.7 mmol/L; Glucose - POC 153 mg/dl (70-99); HCO3 - POC 26 mmol/L (21-28); Hematocrit - POC 28 % PCV (42-52); Hemodilution- POC Yes; Hemoglobin Calculated - POC 9.7; Ionized Calcium - POC 1.04 mmol/L (1.15-1.33); Lactate - POC < 0.30 mmol/L (0.36-0.75); PCO2 - POC 43 mmHg (35-48); PO2 - POC 367 mmHg (83-108); Sodium - POC 133 mmol/L (136-145); Specimen Type - POC Arterial; pH - POC 7.39 (7.35-7.45)
[2024-09-29 16:01] LABS: Glucose - Point of Care 116 mg/dl (70-99)
--- NOTE | 2024-09-29 16:10 | RESPNOTE ---
patient extubated at 1605 without incident. 100% on 6L.
--- NOTE | 2024-09-29 16:15 | PTCARENOTE ---
Patient extubated on to 6 L NC, CHG bath completed patient turn and repositioned. 100% V Paced, on levophed CT output within normal limits. Patient alert and oriented X 4, patient reports sternal pain, IVtylenol given
[2024-09-29] MEDS: ALBUMIN 5% 250 IV ×2 (16:29→22:15)
[2024-09-29] MEDS: OFIRMEV 100 IV (16:38)
[2024-09-29] MEDS: PACERONE PO (16:39)
[2024-09-29 16:55] LABS: B.E. - POC 0.2 mmol/L; Blood Urea Nitrogen - POC 11 mg/dl (3-120); Chloride - POC 104 mmol/L (96-111); Creatinine - POC 0.61 mg/dl (0.3-1.0); Glucose - POC 123 mg/dl (70-99); HCO3 - POC 26 mmol/L (21-28); Hematocrit - POC 34 % PCV (42-52); Hemodilution- POC Yes; Hemoglobin Calculated - POC 11.5; Ionized Calcium - POC 1.29 mmol/L (1.15-1.33); Lactate - POC 1.82 mmol/L (0.36-0.75); O2 Saturation %Calculated-POC 98.4 % (94-98); PCO2 - POC 45 mmHg (35-48); PO2 - POC 118 mmHg (83-108); Potassium - POC 5.1 mmol/L (3.5-5.1); Sodium - POC 138 mmol/L (136-145); Specimen Type - POC Arterial; pH - POC 7.37 (7.35-7.45)
[2024-09-29] MEDS: NEURONTIN 100 MG PO ×2 (17:10→21:47)
[2024-09-29] MEDS: LOW STRENGTH ASPIRIN 81 MG PO (17:11)
[2024-09-29] MEDS: ROXICODONE 5 MG PO (17:15)
[2024-09-29 17:19] LABS: Glucose - Point of Care 107 mg/dl (70-99)
--- NOTE | 2024-09-29 18:00 | PTCARENOTE ---
Notified WORKFORCE MANAGER of CI of 1.92
[2024-09-29 18:23] LABS: Hematocrit 30.4 % (39.0-52.0); Hemoglobin 10.7 g/dL (13.0-18.0); Platelet Count 137 10^3/uL (130-400)
--- NOTE | 2024-09-29 19:00 | PTCARENOTE ---
notifed CORK FLOOR INSTALLER of CI 1.91
[2024-09-29 19:01] LABS: Glucose - Point of Care 84 mg/dl (70-99)
[2024-09-29 19:37] LABS: Mixed Venous O2 Saturation 67.9 %
[2024-09-29 19:40] LABS: B.E. 1.3 mmol/L; HCO3 24.9 mmol/L (21-28); Ionized Calcium 1.21 mMOL/L (1.15-1.33); PCO2 35 mmHg (35-48); PO2 156 mmHg (83-108); Potassium 4.7 mMOL/L (3.5-5.1); pH 7.46 (7.35-7.45)
[2024-09-29 19:41] LABS: O2 Therapy 4L
[2024-09-29] MEDS: ANCEF 5 IV (19:52)
[2024-09-29] MEDS: SENOKOT-S 1 TABLET PO (19:52)
[2024-09-29] MEDS: BACTROBAN 2% OINTMENT 2 APPLIC NASAL (19:55)
[2024-09-29 21:03] LABS: Glucose - Point of Care 103 mg/dl (70-99)
[2024-09-29] MEDS: TYLENOL 1000 MG PO (21:46)
--- NOTE | 2024-09-29 22:15 | PTCARENOTE ---
I & O and hour care completed, notified PAYABLE MANAGER of patient urine output 25 cc/hr, albumin order and started.
[2024-09-29 23:11] LABS: Glucose - Point of Care 113 mg/dl (70-99)
[2024-09-30] VITALS (25 sets, daily range): BP systolic 89–137; BP diastolic 53–71; BMI 27.1
--- NOTE | 2024-09-30 | PTCARENOTE ---
assumed care of pt from previous RN. pt A&Ox4, bedrest s/p CVOR. R IJ cordis w/ swan floated to 45cm. L radial a-line. all lines leveled, zeroed, flushed. 100% A/V paced w/ temp epicardial A/V wires. settings DDI 76/10/16/0.5/0.8. pericardial
friction rub on auscultation. CT x3 (Mediastinal x2, L pleural) to -20cm wall suction, draining sanguineous drainage. abd s/n, hypoactive BS. tolerating sips of water w/ PO meds. carvalho catheter draining praneeth colored urine. U/O <0.5ml/kg/h. CT PA
aware. all surgical sites stable, CDI. PIV intact. see worklist for complete nursing assessment, interventions, gtt titrations, VS, and I&Os.
[2024-09-30 01:06] LABS: Glucose - Point of Care 84 mg/dl (70-99)
[2024-09-30] MEDS: ROXICODONE 5 MG PO ×2 (02:07→09:32)
[2024-09-30 03:23] LABS: Glucose - Point of Care 98 mg/dl (70-99)
[2024-09-30 03:35] LABS: Hematocrit 29.8 % (39.0-52.0); Hemoglobin 10.1 g/dL (13.0-18.0); Mean Corp Hgb Conc. 33.9 g/dL (33.0-37.0); Mean Corpuscular Hgb 32.8 pg (27.0-31.0); Mean Corpuscular Volume 96.8 fL (80.0-94.0); Mean Platelet Volume 9.7 fL (7.4-10.4); Platelet Count 100 10^3/uL (130-400); Red Blood Cell Count 3.08 10^6/uL (4.70-6.10); Red Cell Dist. Width 12.6 % (11.5-14.5); White Blood Cell Count 14.9 10^3/uL (4.8-10.8)
[2024-09-30 03:58] LABS: Blood Urea Nitrogen 17 mg/dl (9-20); Calcium 8.4 mg/dl (8.4-10.2); Carbon Dioxide 21 mmol/L (22-30); Chloride 105 mmol/L (98-107); Estimated Creatinine Clearance 111 ml/min; Glucose 98 mg/dl (70-99); Magnesium 2.2 mg/dl (1.6-2.3); Potassium 4.8 mmol/L (3.5-5.1); Sodium 133 mmol/L (135-145); eGFR > 60.00
[2024-09-30] MEDS: ANCEF 5 IV ×2 (04:19→12:00)
[2024-09-30] MEDS: FLEXERIL 5 MG PO (04:21)
[2024-09-30 04:24] LABS: B.E. -3.4 mmol/L; HCO3 21.3 mmol/L (21-28); O2 Saturation % 98.6 % (94-98); PCO2 36 mmHg (35-48); PO2 89 mmHg (83-108); pH 7.38 (7.35-7.45)
--- NOTE | 2024-09-30 04:30 | PTCARENOTE ---
no acute changes. VSS.
[2024-09-30 04:40] LABS: O2 Therapy 2L NC
[2024-09-30] MEDS: DILAUDID 0.25 MG IV (04:45)
[2024-09-30] MEDS: TYLENOL 1000 MG PO ×3 (04:46→22:22)
[2024-09-30] MEDS: SODIUM BICARBONATE 50 MEQ IV (04:58)
--- NOTE | 2024-09-30 05:04 | W.PN.CT ---
Today's Communication / Plan
-
-pod #1
-no issues overnight
-kept BP 90-110 overnight per AT
-AV paced @ 76 bpm (CHB postop). Intrinsic rhythm this am is nsr with NO escape- pacer dependent. Holding BB and Amio
-CI 2.93, CO 798. Drips: Insulin, Nitro 30
-CT outputs: 2 meds 130/230, L pleur 45/135 in 12/24 hrs
-maintain pw
-maintain a-line
-d/c insulin
-current meds (ASA, Plavix, Protonix). Consider starting statin for CAD. Eventually, Eliquis for paf.
-encourage IS, OOB
Assessment / Plan
-
- Severe mitral valve insufficiency / mv-CAD - s/p Radical mitral valve repair; CABG x 2 [in situ KWOK to LAD, Ao to RSVG to OM1); Open surgical left atrial maze [RF ablation and cryo]; Left atrial appendage exclusion [35 mm device] on 09/29/24, pod
#1
- Intraop SKIP: LVEF 55% preop and postop, no new regional wma. fter coming off cardiopulmonary bypass, there was trace, trace to mild residual mitral valve insufficiency at a cleft between P1 and P2, no systolic anterior motion, and a mean gradient
of 1 across the valve. The left atrial appendage is found to be totally occluded without residual flow and no stump.
- Multi vessel CAD
- Severe mitral valve insufficiency secondary to degeneration, type II pathology with area of calcification
- Paroxysmal atrial fibrillation, on chronic anticoagulation (Eliquis)
- History of DVTs LLE (post trauma)
- History of brain aneurysm
- History of SVT
- Degenerative disc disease
- Former smoker
- Cholelithiasis
- Acute postop blood loss anemia - stable without transfusion
- Acute postop thrombocytopenia
- Acute postop atelectasis
- Acute postop hypovolemia with subsequent hypervolemia
- Complete heart block postop
Discussed patient care with: Nursing and Care Team
Subjective
-
Date of Service: September 29, 2024
Objective Data
-
Lab Results
09/29/24 18:01
09/29/24 12:41
PT 20.2 Sec (11.4-14.6) H 09/29/24 12:41
INR 1.71 09/29/24 12:41
APTT 31.3 Sec (23.4-35.0) 09/29/24 12:41
Vital Signs
Vital Signs
Temp Pulse Resp BP Pulse Ox
98.4 F 76 12 94/66 98
09/29/24 22:00 09/29/24 22:30 09/29/24 22:30 09/29/24 22:00 09/29/24 22:30
CT Intake/Output/Weight
09/29/24 09/29/24 09/30/24
06:59 18:59 06:59
Intake Total 2057.8 / 2383.4 325.6 / 2383.4
Output Total 620 / 815 195 / 815
Balance 1437.8 / 1568.4 130.6 / 1568.4
SaO2: 98
Physical Exam
-
General: Awake and AOx3
Cardiovascular: Regular rate & rhythm, No Murmurs and Rub
Respiratory: Decreased Breath Sounds
Sternum: Stable
Incision: Clean, Dry and Intact
Extremities: Other (trace edema b/l, DPs by Doppler b/l)
Abdomen: soft, nontender, nondistended, + decreased bowel sounds
Data Reviewed
-
Lab Results: Results Reviewed
Medications: Active Meds Reviewed
Chest X-Ray: Report Reviewed and Image Reviewed
ECG: Report Reviewed and Image Reviewed
[2024-09-30 05:12] LABS: Glucose - Point of Care 91 mg/dl (70-99)
[2024-09-30 07:04] LABS: Glucose - Point of Care 99 mg/dl (70-99)
--- NOTE | 2024-09-30 07:06 | W.PN.INTV ---
Today's Communication / Plan
Recommendations
- Incentive spirometry
- Titrate O2 as tolerated
- Titrate Levophed as tolerated
Assessment
-
Patient is a 79-year-old gentleman with known history of mitral valve prolapse as well as paroxysmal A-fib and SVT in the past status post ablation. Patient follows up with cardiology services outpatient and had echocardiogram with worsening mitral
regurgitation noted earlier this year. This was followed by a cardiac catheterization which showed single-vessel coronary artery disease. Patient was subsequently referred to cardiothoracic surgery service for surgical valve repair as well as
coronary artery bypass graft. Postsurgery, patient admitted to cardiovascular ICU. Special Procedures Tech consult was requested for further input.
S/p CABG x 2, radical mitral valve repair, left atrial appendage exclusion with surgical left atrial maze procedure, POD #1
Titrate off pressors per protocol. Currently on nitro drip at 30 and Levophed at 1
ECHO and SKIP reviewed, severe MR pre-op
PA catheter removed, Cordis in place, Right IJ
Management of chest tubes per primary service, sero-sanguinous drainage
Extubated, no respiratory distress, 95% on 2 Ltr O2
Pain control
ABG(s) reviewed, 7.38, 36, 89 on 2 ltr
CXR with no obvious opacities/infiltrates, chest tubes in place
Maintain supplement oxygen as needed
No prior history of pulmonary disease
Can add nebulizers if needed
Aspiration precautions
Encouraged incentive spirometry, OOB/ambulation/early mobility
Advance diet as tolerated following extubation
GI prophylaxis, currently on Protonix
Monitor critical I/O's
Lee/chest tube output
Hb/10.5 post-op
Trend CBC for now
Can transfuse if indicated for Hb <7, plt <50 in surgical patients
DVT prophylaxis including SCDs
Insulin protocol initiated and ongoing, anticipate transition to s.c. in AM.
Medical co-morbidities:
# Severe Mitral valve prolapse with Regurgitation
-s/p MVR
# Paroxysmal SVT and Atrial Fibrillation s/p ablation.
-Eliquis resumption when cleared by surgery service
-Currently paced rhythm on the monitor (s/p maze procedure 09/2024). Might need Pacemaker
# CAD, single vessel. s/p CABG
-Currently on ASA, Plavix and Statins. Metoprolol and Amiodarone on hold due to paced rhythm
Critical Care time 48 mins -- The patient is admitted for acute critical illness for the treatment of vital organ failure and/or prevention of further life-threatening conditions. Total care includes time spent in review of history, physical exam,
medications, hemodynamic/ventilator parameters, laboratory data, imaging and discussion with house staff, pharmacy, respiratory therapy, account support manager, and nursing.
Data
CT Chest 09/2024: 1. Clear lungs, without evidence of lobar pneumonia, pleural effusion, or significant pulmonary nodule.
2. Severe coronary arterial calcification, consistent with the patient's history of coronary artery disease.
3. Cholelithiasis.
Cardiac Cath: 09/2024: 1. Single vessel obstructive coronary artery disease as described with iFR positive proximal LAD
2. Mildly elevated LV filling pressure and no aortic stenosis
RECOMMENDATIONS
1. Secondary prevention of coronary artery disease
2. Consider KWOK to LAD at time of mitral valve repair versus medical management
SKIP 09/2024: Normal left ventricular chamber size. Normal left ventricular systolic
function. Normal regional wall motion. Normal left ventricular wall thickness.
Left ventricular ejection fraction is 60%.
Normal right ventricular size and function.
Moderately dilated left atrium.
Thickened mitral valve leaflets are present with posterior mitral annular
calcification. There is tethering of the posterior leaflet at P2 and P3 with
significant P2/P3 prolapse. There is an eccentric jet of moderate to severe
mitral regurgitation. Peak E wave velocity 77 cm/s. Mean mitral gradient 3
mmHg.
Thickened aortic valve with normal leaflet excursion. Mild aortic
regurgitation.
ECHO 09/2024: Normal left ventricular systolic function estimated ejection fraction 55 to 60%
Mitral valve prolapse with moderate to severe eccentric mitral regurgitation
Mild aortic stenosis. Mild aortic regurgitation.
Mild tricuspid regurgitation.
Compared to the previous report 01/17/2024 there is increased severity of mitral
regurgitation. MR now reported as moderate to severe. Previously reported as
moderate. An additional jet of mitral regurgitation is noted in the
parasternal long axis view which is not seen on the previous study.
Subjective Dataa
Subjective Data
Date of Service:
Date of Service: September 30, 2024
Subjective:
Patient extubated, lying in bed in no acute distress, reports mild postoperative pain, well-controlled overall.
Review of Systems
Genitourinary: Other (All 14 systems reviewed and negative except as stated above in the history of present illness.)
Objective Data
Data Reviewed
Vital Signs / I&O / Oxygen:
Vital Signs
Temp Pulse Resp BP Pulse Ox
98.4 F 76 21 96/62 94
09/30/24 04:00 09/30/24 07:00 09/30/24 07:00 09/30/24 07:00 09/30/24 07:00
Intake and Output
09/29/24 09/30/24 10/01/24
06:59 06:59 06:59
Intake Total 2871.2 / 2882.0 10.8 / 10.8
Output Total 1160 / 1185
Balance 1711.2 / 1697.0 -14.2 / -14.2
SaO2 [CPAP/PSV] 99
SaO2 [SIMV] 99
SaO2 94
Nasal Cannula flow liters per 2
minute
Physical Exam
General: Comfortable
HEENT: Normocephalic
Cardiovascular: Other (Paced rhythm)
Respiratory: Clear and Non-Labored Respirations
GI: Soft and Non Distended
Neurology: Awake and Alert
Skin: Warm
Labs/Micro/Reports
Lab Data
09/30/24 03:11
09/30/24 03:11
Laboratory Results
09/29/24 09/29/24 09/30/24
12:41 19:24 04:18
PT 20.2 H
INR 1.71
APTT 31.3
pH 7.37 7.46 H 7.38
pCO2 42 35 36
pO2 157 H 156 H 89
HCO3 24.3 24.9 21.3
O2 Delivery Level 4l 2l nc
--- NOTE | 2024-09-30 07:40 | W.PN.ANS.POP ---
Anesthesia Post Operative
- Anesthesia Post Op Note
Vital Signs Stable-See Nursing Note: Yes
Airway Patent: Yes
Adequate Pain Control: Yes
Change in Mental Status: No
Current Postoperative Nausea & Vomiting: No
Anesthesia Complications: No
General Anesthetic Recall: No
Unplanned Admission: No
Post Op Hydration Adequate: Yes
- -
Pt awake and alert-resting comfortably with no anesthesia related c/o. VSS, no N/V.
[2024-09-30] MEDS: PROTONIX 40 MG PO (08:17)
[2024-09-30] MEDS: SENOKOT-S 1 TABLET PO ×2 (08:17→19:18)
[2024-09-30] MEDS: LIDOCAINE 4% PATCH 1 PATCH TOPICAL (08:17)
[2024-09-30] MEDS: PLAVIX 75 MG PO (08:17)
[2024-09-30] MEDS: LOW STRENGTH ASPIRIN 81 MG PO (08:17)
[2024-09-30] MEDS: NEURONTIN 100 MG PO ×3 (08:17→22:22)
[2024-09-30] MEDS: MAGNESIUM OXIDE 500 MG PO ×2 (08:17→19:18)
[2024-09-30] MEDS: LASIX 20 MG IV ×2 (08:18→19:17)
[2024-09-30] MEDS: BACTROBAN 2% OINTMENT 1 APPLIC NASAL ×2 (08:20→19:19)
[2024-09-30] MEDS: NSS IV (08:21)
[2024-09-30 09:17] LABS: Glucose - Point of Care 100 mg/dl (70-99)
--- NOTE | 2024-09-30 09:40 | W.PN.CD ---
Today's Communication / Plan
-
Monitor AV conduction
Add systemic anticoagulation in a few days
Impression / Plan
-
Background: 79 yo male with MVP with progressive MR, PVCs, mild and paroxysmal AF who is here for MVR with CABG.
Severe MR
CAD
PAF seen at EPS/ablation of SVT/VT/PVCs, no clinical AFib seen
s/p MV repair and CABG with KWOK to LAD and SVG to OM1, LA MAZE and LAZARUS exclusion 35 mm Device
- He is requiring AV pacing for heart block, hope that will resolve in next few days
HTN
Subjective: Pain well controlled
Inraop SKIP:
CONCLUSIONS
Normal biventricular systolic function with LVEF of 60-65% by visual
inspection. No wall motion abnormalities seen.
Moderate to severe mitral regurgitation with calcified and frozen P3 and
partial P2 leaflets. Severe calcification of the posterior annulus is present.
Aortic sclerosis without stenosis. Mild aortic insufficiency.
Trace to mild tricuspid regurgitation.
Normal left atrial appendage.
Severe calcification of the anterior sinotubular junction with a small segment
of plaque seen in the anterior ascending aorta at the level of the right
pulmonary artery.
POST OPERATIVE FINDINGS
S/P MVR/CABG/MAZE/LAZARUS clip
The left atrial appendage is no longer visible with color flow Doppler
confirming the absence of flow. The mitral valve regurgitation is reduced to
trace with two small jets in the area of the P3/P2 patch and a segment between
P2/P1 probably representing a cleft. Otherwise unchanged exam. The rhythm is
sinus. The mitral mean gradient is 1 mmHg with a cardiac index of 2.5
L/min/meters sq.
Physical Exam
Vital Signs/Labs
Vital Signs
Temp Pulse Resp BP Pulse Ox
98.2 F 76 18 99/64 96
09/30/24 08:00 09/30/24 09:00 09/30/24 09:00 09/30/24 09:00 09/30/24 09:00
09/29/24 09/30/24 10/01/24
06:59 06:59 06:59
Actual Weight 86.9 kg 90.6 kg
09/30/24 03:11
09/30/24 03:11
PT 20.2 Sec (11.4-14.6) H 09/29/24 12:41
INR 1.71 09/29/24 12:41
APTT 31.3 Sec (23.4-35.0) 09/29/24 12:41
Magnesium 2.2 mg/dl (1.6-2.3) 09/30/24 03:11
Physical Exam
Constitutional: No acute distress
EENT: Anicteric
Cardiovascular: Rhythm & rate is regular, Pedal edema is absent, S1S2 is normal and Rub absent
Respiratory: Respiratory effort normal, Lungs clear to auscul. and Wheeze Absent
GI: Distention absent
Neuro/Psych: AO x 3 and Motor deficits absent
Data Reviewed
-
Date of Service: September 30, 2024
[2024-09-30 10:42] LABS: Glucose - Point of Care 123 mg/dl (70-99)
--- NOTE | 2024-09-30 11:06 | CM ---
Chart reviewed. Patient's is at bedside. Patient is independent of ADLS, lives with his in a 1 STH, 1-2 LITZY, 0 DME. Plan is for the patient to return home with CT Transitional RN. CM to follow
[2024-09-30] MEDS: ROXICODONE 2.5 MG PO (11:48)
[2024-09-30 12:04] LABS: Glucose - Point of Care 129 mg/dl (70-99)
[2024-09-30] MEDS: FERRLECIT 110 MG IV (14:01)
--- NOTE | 2024-09-30 14:23 | PTCARENOTE ---
d/c L pleural chest tube as ordered. patient tolerated procedure.
[2024-09-30] MEDS: LIPITOR 40 MG PO (16:59)
[2024-09-30] MEDS: DILAUDID 0.5 MG IV (17:34)
[2024-09-30] MEDS: LR 1000 IV (19:05)
--- NOTE | 2024-09-30 20:00 | PTCARENOTE ---
Assumed care of patient at 1900. Patient found resting in bed at time of assessment. Patient is AOx4, follows commands appropriately, moves all extremities. Lung sounds are diminished in the bases, saO2 95% on 2L via NC, CTx2: 2x meds draining
serosanguineous to one atrium. Heart sounds are audible, patient is 100% A+V paced on the monitor with occasional PVCs, there is a rub present on auscultation, patient has normal palpable radial pulses and weak but palpable dorsalis pedis. Trace
generalized anasarca observed. Patient has active BS in all four quadrants and carvalho present draining clear yellow urine. There is a sternal incsion approx with surg adhesive SUPPLY AND DISTRIBUTION MANAGER, R groin puncture approx with surg adhesive JEREIMAH, and RLE incision
approx with surg adhesive JEREMIAH. Patient has a R IJ cordis receiving KVO and R Hand PIV. Patient currently receiving KVO and nitro at 25. Orders received to start patient of 50mL/hr LR and 20 IVP Lasix. Call stevens within reach.
[2024-09-30 22:01] LABS: B.E. 1.8 mmol/L; HCO3 25.6 mmol/L (21-28); Ionized Calcium 1.14 mMOL/L (1.15-1.33); O2 Saturation % 96.9 % (94-98); PCO2 36 mmHg (35-48); PO2 68 mmHg (83-108); Potassium 4.4 mMOL/L (3.5-5.1); pH 7.46 (7.35-7.45)
[2024-09-30 22:18] LABS: Magnesium 2.1 mg/dl (1.6-2.3)
[2024-09-30] MEDS: CALCIUM GLUCONATE 100 IV (22:38)
[2024-10-01] VITALS (19 sets, daily range): BP systolic 94–145; BP diastolic 52–81; PULSE 72; O2SAT 95–97; BMI 27.8
--- NOTE | 2024-10-01 | PTCARENOTE ---
Patient reassessed. Remains 100% A+V paced on the monitor. ABG ordered by HUBER MARAVILLA. Administered Ca Gluconate over two hours. Nitro increased to 45. O2 increased to 4L. No c/o pain. Call stevens within reach.
[2024-10-01 04:06] LABS: Hematocrit 25.3 % (39.0-52.0); Hemoglobin 8.8 g/dL (13.0-18.0); Mean Corp Hgb Conc. 34.8 g/dL (33.0-37.0); Mean Corpuscular Volume 94.8 fL (80.0-94.0); Mean Platelet Volume 10.1 fL (7.4-10.4); Platelet Count 107 10^3/uL (130-400); Red Blood Cell Count 2.67 10^6/uL (4.70-6.10); Red Cell Dist. Width 13.2 % (11.5-14.5); White Blood Cell Count 15.9 10^3/uL (4.8-10.8)
[2024-10-01 04:19] LABS: Blood Urea Nitrogen 29 mg/dl (9-20); Calcium 8.1 mg/dl (8.4-10.2); Carbon Dioxide 26 mmol/L (22-30); Chloride 97 mmol/L (98-107); Estimated Creatinine Clearance 95 ml/min; Glucose 122 mg/dl (70-99); Magnesium 2.1 mg/dl (1.6-2.3); Potassium 4.4 mmol/L (3.5-5.1); Sodium 129 mmol/L (135-145); eGFR > 60.00
[2024-10-01] MEDS: MUCINEX 600 MG PO ×2 (05:52→20:11)
[2024-10-01] MEDS: TYLENOL 1000 MG PO ×2 (05:52→21:09)
--- NOTE | 2024-10-01 06:16 | W.PN.CT ---
Today's Communication / Plan
-
-pod #2
-av-paced @ 76 overnight. Intrinsic rhythm is nsr with NO escape- remains pacer dependent. Holding BB and Amio
-CT outputs: 2 meds 50/180 in 12/24 hrs
-hypertensive. Drips: Nitro 65 mcg/min
-diuresed with 20 iv Lasix bid (UO 525/1220 in 12/24 hrs)- continue
-wean off Nitro
-current meds (ASA, Plavix, Lipitor, Protonix). Eventually, Eliquis for paf.
-encourage IS, OOB
Assessment / Plan
-
- Severe mitral valve insufficiency / mv-CAD - s/p Radical mitral valve repair; CABG x 2 [in situ KWOK to LAD, Ao to RSVG to OM1); Open surgical left atrial maze [RF ablation and cryo]; Left atrial appendage exclusion [35 mm device] on 09/29/24, pod
#2
- Intraop SKIP: LVEF 55% preop and postop, no new regional wma. After coming off cardiopulmonary bypass, there was trace, trace to mild residual mitral valve insufficiency at a cleft between P1 and P2, no systolic anterior motion, and a mean gradient
of 1 across the valve. The left atrial appendage is found to be totally occluded without residual flow and no stump.
- Multi vessel CAD
- Severe mitral valve insufficiency secondary to degeneration, type II pathology with area of calcification
- Paroxysmal atrial fibrillation, on chronic anticoagulation (Eliquis)
- History of DVTs LLE (post trauma)
- History of brain aneurysm
- History of SVT
- Degenerative disc disease
- Former smoker
- Cholelithiasis
- Acute postop blood loss anemia - stable without transfusion
- Acute postop thrombocytopenia
- Acute postop atelectasis
- Acute postop hypovolemia with subsequent hypervolemia
- Complete heart block postop
- Acute postop hyponatremia
Discussed patient care with: Nursing and Care Team
Subjective
-
Date of Service: October 01, 2024
Objective Data
-
PT 20.2 Sec (11.4-14.6) H 09/29/24 12:41
INR 1.71 09/29/24 12:41
APTT 31.3 Sec (23.4-35.0) 09/29/24 12:41
Vital Signs
Vital Signs
Temp Pulse Resp BP Pulse Ox
98.2 F 75 20 128/52 91
10/01/24 00:00 10/01/24 00:45 10/01/24 00:45 10/01/24 00:00 10/01/24 00:45
CT Intake/Output/Weight
09/30/24 09/30/24 10/01/24
06:59 18:59 06:59
Intake Total 813.4 / 2882.0 487.6 / 600.7 113.1 / 600.7
Output Total 540 / 1185 845 / 1370 525 / 1370
Balance 273.4 / 1697.0 -357.4 / -769.3 -411.9 / -769.3
SaO2: 91
Physical Exam
-
General: Awake and AOx3
Cardiovascular: Regular rate & rhythm, No Murmurs and Rub
Respiratory: Decreased Breath Sounds
Sternum: Stable
Incision: Clean, Dry and Intact
Extremities: Other (trace edema, possibly chronic with chronic brown skin changes)
Data Reviewed
-
Lab Results: Results Reviewed
Medications: Active Meds Reviewed
Chest X-Ray: Report Reviewed and Image Reviewed
ECG: Report Reviewed and Image Reviewed
--- NOTE | 2024-10-01 07:19 | PTCARENOTE ---
Patient reassessed. Nitro increased to 65. CT PA at bedside to pause temporary PM while performing EKG. No underlying rhythm observed. Per CT PA patient to remain in bed. Hygiene care provided. Remains AV paced on the monitor. Call stevens within
reach.
--- NOTE | 2024-10-01 08:00 | PTCARENOTE ---
resumed care of patient from previous RN. In bed resting at time of assessment. AAOx3. AV paced HR 76. 97% on 4L via NC, CTx2. no air leak/crepitus. 100% AV paced + rub +pulses. Trace generalized anasarca clear yellow urine draining from carvalho. all
surgical sites c/d/i. R IJ cordis and PIV patent. Nitro infusing at 45 mcg. will continue to monitor.
--- NOTE | 2024-10-01 08:56 | W.PN.CD ---
Today's Communication / Plan
-
discussed with CT surgery, EP, and patient: if remains in complete heart block tomorrow, will proceed to PPM
Impression / Plan
-
Background: 79 yo male with MVP with progressive MR, PVCs, mild and paroxysmal AF who is here for MVR with CABG.
s/p MV repair and CABG with KWOK to LAD and SVG to OM1, LA MAZE and LAZARUS exclusion 35 mm Device
-SKIP: EF 60-65%
- continues on ASA, Plavix, statin
Rhythm
-temp pacer dependent with underlying complete heart block
-discussed with CT surgery, EP, and patient: if remains in complete heart block tomorrow, will proceed to PPM
HTN
-assess to add back ARB as he recovers from OR
Paroxysmal A fib
-eventually add back eliquis and stop plavix
.
Physical Exam
Vital Signs/Labs
Vital Signs
Temp Pulse Resp BP Pulse Ox
98.1 F 69 22 107/67 97
10/01/24 08:00 10/01/24 08:30 10/01/24 08:30 10/01/24 06:00 10/01/24 08:30
09/30/24 10/01/24 10/02/24
06:59 06:59 06:59
Actual Weight 90.6 kg 92.8 kg
10/01/24 03:24
10/01/24 03:24
PT 20.2 Sec (11.4-14.6) H 09/29/24 12:41
INR 1.71 09/29/24 12:41
APTT 31.3 Sec (23.4-35.0) 09/29/24 12:41
Magnesium 2.1 mg/dl (1.6-2.3) 10/01/24 03:24
Physical Exam
Constitutional: No acute distress
Cardiovascular: Rhythm & rate is regular, Pedal edema is absent, JVD pressure is normal and Systolic murmur absent
Respiratory: Respiratory effort normal and Lungs clear to auscul.
Neuro/Psych: AO x 3
Data Reviewed
-
Date of Service: October 01, 2024
EKG: Other (Tele: AV paced, with underlying complete heart block)
Labs: Labs Reviewed by me
[2024-10-01] MEDS: DILAUDID 0.25 MG IV (09:41)
[2024-10-01] MEDS: PROTONIX 40 MG PO (09:41)
[2024-10-01] MEDS: LOW STRENGTH ASPIRIN 81 MG PO (09:42)
[2024-10-01] MEDS: NEURONTIN 100 MG PO ×3 (09:42→21:09)
[2024-10-01] MEDS: MAGNESIUM OXIDE 500 MG PO ×2 (09:42→20:11)
[2024-10-01] MEDS: PLAVIX 75 MG PO (09:43)
[2024-10-01] MEDS: SENOKOT-S 1 TABLET PO ×2 (09:43→20:11)
[2024-10-01] MEDS: BACTROBAN 2% OINTMENT 1 APPLIC NASAL ×2 (09:43→20:11)
[2024-10-01] MEDS: LIDOCAINE 4% PATCH 1 PATCH TOPICAL (09:43)
--- NOTE | 2024-10-01 10:50 | CM ---
Chart reviewed. Patient is independent of ADLS, lives with his in a 1 STH, 1-2 LITZY, 0 DME. Patient OOB sitting in the chair, at bedside. Plan is for the patient to return home with CT Transitional RN. CM to follow
--- NOTE | 2024-10-01 12:47 | W.PN.INTV ---
Today's Communication / Plan
Recommendations
- Monitor input and output closely, might need additional diuresis if in positive fluid balance
- If patient transferred out of CVICU, harvest worker fruit service will sign off, please consult as needed
Assessment
-
Patient is a 79-year-old gentleman with known history of mitral valve prolapse as well as paroxysmal A-fib and SVT in the past status post ablation. Patient follows up with cardiology services outpatient and had echocardiogram with worsening mitral
regurgitation noted earlier this year. This was followed by a cardiac catheterization which showed single-vessel coronary artery disease. Patient was subsequently referred to cardiothoracic surgery service for surgical valve repair as well as
coronary artery bypass graft. Postsurgery, patient admitted to cardiovascular ICU. Biometric Technician consult was requested for further input.
S/p CABG x 2, radical mitral valve repair, left atrial appendage exclusion with surgical left atrial maze procedure, POD #2
Patient is off all drips
ECHO and SKIP reviewed, severe MR pre-op
PA catheter removed,
Management of chest tubes per primary service
Extubated, no respiratory distress, 95% on 2 Ltr O2
Pain control
CXR with mild congestion, s/p 2 doses of lasix on 09/30
No prior history of pulmonary disease
Can add nebulizers if needed
Aspiration precautions
Encouraged incentive spirometry, OOB/ambulation/early mobility
Advance diet as tolerated following extubation
GI prophylaxis, currently on Protonix
Monitor critical I/O's
Lee/chest tube output
Trend CBC for now
Can transfuse if indicated for Hb <7, plt <50 in surgical patients
DVT prophylaxis including SCDs
Insulin protocol initiated and ongoing, anticipate transition to s.c. in AM.
Medical co-morbidities:
# Severe Mitral valve prolapse with Regurgitation
-s/p MVR
# Paroxysmal SVT and Atrial Fibrillation s/p ablation.
-Eliquis resumption when cleared by surgery service
-Currently paced rhythm on the monitor (s/p maze procedure 09/2024). Likely will need Pacemaker.
# CAD, single vessel. s/p CABG
-Currently on ASA, Plavix and Statins. Metoprolol and Amiodarone on hold due to paced rhythm
Critical Care time 45 mins -- The patient is admitted for acute critical illness for the treatment of vital organ failure and/or prevention of further life-threatening conditions. Total care includes time spent in review of history, physical exam,
medications, hemodynamic/ventilator parameters, laboratory data, imaging and discussion with house staff, pharmacy, respiratory therapy, recycling center operator, and nursing.
Data
CT Chest 09/2024: 1. Clear lungs, without evidence of lobar pneumonia, pleural effusion, or significant pulmonary nodule.
2. Severe coronary arterial calcification, consistent with the patient's history of coronary artery disease.
3. Cholelithiasis.
Cardiac Cath: 09/2024: 1. Single vessel obstructive coronary artery disease as described with iFR positive proximal LAD
2. Mildly elevated LV filling pressure and no aortic stenosis
RECOMMENDATIONS
1. Secondary prevention of coronary artery disease
2. Consider KWOK to LAD at time of mitral valve repair versus medical management
SKIP 09/2024: Normal left ventricular chamber size. Normal left ventricular systolic
function. Normal regional wall motion. Normal left ventricular wall thickness.
Left ventricular ejection fraction is 60%.
Normal right ventricular size and function.
Moderately dilated left atrium.
Thickened mitral valve leaflets are present with posterior mitral annular
calcification. There is tethering of the posterior leaflet at P2 and P3 with
significant P2/P3 prolapse. There is an eccentric jet of moderate to severe
mitral regurgitation. Peak E wave velocity 77 cm/s. Mean mitral gradient 3
mmHg.
Thickened aortic valve with normal leaflet excursion. Mild aortic
regurgitation.
ECHO 09/2024: Normal left ventricular systolic function estimated ejection fraction 55 to 60%
Mitral valve prolapse with moderate to severe eccentric mitral regurgitation
Mild aortic stenosis. Mild aortic regurgitation.
Mild tricuspid regurgitation.
Compared to the previous report 01/17/2024 there is increased severity of mitral
regurgitation. MR now reported as moderate to severe. Previously reported as
moderate. An additional jet of mitral regurgitation is noted in the
parasternal long axis view which is not seen on the previous study.
Subjective Dataa
Subjective Data
Date of Service:
Date of Service: October 01, 2024
Subjective:
Patient comfortably lying in bed, in no acute distress..
Review of Systems
Genitourinary: Other (All 14 systems reviewed and negative except as stated above in the history of present illness.)
Objective Data
Data Reviewed
Vital Signs / I&O / Oxygen:
Vital Signs
Temp Pulse Resp BP Pulse Ox
98.1 F 70 19 113/64 96
10/01/24 08:00 10/01/24 11:00 10/01/24 11:00 10/01/24 11:00 10/01/24 10:45
Intake and Output
09/30/24 10/01/24 10/02/24
06:59 06:59 06:59
Intake Total 2871.2 / 2882.0 1092.2 / 1092.2
Output Total 1160 / 1185 1525 / 1525 430 / 430
Balance 1711.2 / 1697.0 -432.8 / -432.8 -410 / -410
SaO2 [CPAP/PSV] 99
SaO2 [SIMV] 99
SaO2 96
Nasal Cannula flow liters per 4
minute
Physical Exam
General: Comfortable
HEENT: Normocephalic
Cardiovascular: Other (Paced rhythm)
Respiratory: Clear and Non-Labored Respirations
GI: Soft and Non Distended
Neurology: Awake and Alert
Skin: Warm
Labs/Micro/Reports
Lab Data
10/01/24 03:24
10/01/24 03:24
Laboratory Results
09/30/24
21:53
pH 7.46 H
pCO2 36
pO2 68 L
HCO3 25.6
O2 Delivery Level
[2024-10-01] MEDS: LASIX 40 MG IV (12:49)
[2024-10-01] MEDS: NSS 500 IV (12:50)
[2024-10-01] MEDS: FERRLECIT 110 MG IV (12:50)
[2024-10-01] MEDS: TYLENOL PO (14:02)
[2024-10-01] MEDS: ROXICODONE 5 MG PO ×2 (16:07→21:08)
[2024-10-01] MEDS: LIPITOR 40 MG PO (17:24)
--- NOTE | 2024-10-01 17:32 | PTCARENOTE ---
weaned to RA. resting in bed. VSS. no additional changes in assessment.
--- NOTE | 2024-10-01 20:00 | PTCARENOTE ---
Assumed care of the patient at 1900. Patient in bed, AOx3, pleasant. 100% AV Paced on the monitor, rate 70, pressures stable, +1 nonpitting edema of the lower extremities, pulses palpable, rub auscultated. On RA, moist nonproductive cough, med x2
present to -20 cm wall suction, no air leak, tidaling, or crepitus noted, serosanguineous drainage in the chamber. Patient tolerating PO well, no nausea, normoactive BS, passing flatus, abdomen SNT. Patient voiding intermittently without difficulty.
MS ICT MANAGERS well approximated, R upper thigh puncture CDI JEREMIAH, RSVG JEREMIAH approximated. RIJ cordis infusing KVO, PIVx1. Given pain medications after ambulating to the restroom for 9/10 sternal pain. See nursing worklist for additional interventions.
[2024-10-01] MEDS: REFRESH EYE DROPS (PF) 1 DROPS OPHTH (20:11)
[2024-10-01 21:31] LABS: Hepatitis C Antibody Negative (Negative)
[2024-10-02] VITALS (23 sets, daily range): BP systolic 99–152; BP diastolic 59–86; PULSE 62; O2SAT 92–96; BMI 27.4
--- NOTE | 2024-10-02 | PTCARENOTE ---
Patient placed on 2LNC while in bed for borderline SpO2 89-90%. Patient inappropriately pacing with ectopy around 2245, CVNP at bedside, adjusted pacer settings. VSS, patient reports relief in pain, had BM on the toilet without issues.
--- NOTE | 2024-10-02 | PTCARENOTE ---
Patient inappropriately pacing with ectopy around 2245, CVNP at bedside, adjusted pacer settings. VSS, patient reports relief in pain, had BM on the toilet without issues.
--- NOTE | 2024-10-02 01:41 | W.PN.CT ---
Addendum entered and electronically signed by JUVENTINO Wallis 10/02/24 14:22:
CDI query:
Acute postoperative pulmonary insufficiency
Original Note:
Today's Communication / Plan
-
-pod #3
-av-paced @ 70, increasing PVCs rate decreased to 60 then resolved. remains in CHB with vent rate in 30s this AM- remains pacer dependent. Holding BB and Amio
-CT outputs: 2 meds 115/395 in 12/24 hrs, planned to remove after PPM
-diuresed with 20 iv Lasix bid (UO 400+voids in 12/24 hrs)
-current meds (ASA, Plavix, Lipitor, Protonix). Eventually, planned for Eliquis for paf. Off NTG gtt
-encourage IS, OOB
Assessment / Plan
-
- Severe mitral valve insufficiency / mv-CAD - s/p Radical mitral valve repair; CABG x 2 [in situ KWOK to LAD, Ao to RSVG to OM1); Open surgical left atrial maze [RF ablation and cryo]; Left atrial appendage exclusion [35 mm device] on 09/29/24, pod
#3
- Intraop SKIP: LVEF 55% preop and postop, no new regional wma. After coming off cardiopulmonary bypass, there was trace, trace to mild residual mitral valve insufficiency at a cleft between P1 and P2, no systolic anterior motion, and a mean gradient
of 1 across the valve. The left atrial appendage is found to be totally occluded without residual flow and no stump.
- Multi vessel CAD
- Severe mitral valve insufficiency secondary to degeneration, type II pathology with area of calcification
- Paroxysmal atrial fibrillation, on chronic anticoagulation (Eliquis)
- History of DVTs LLE (post trauma)
- History of brain aneurysm
- History of SVT
- Degenerative disc disease
- Former smoker
- Cholelithiasis
- Acute postop blood loss anemia - stable without transfusion
- Acute postop thrombocytopenia
- Acute postop atelectasis
- Acute postop hypovolemia with subsequent hypervolemia
- Complete heart block postop
- Acute postop hyponatremia
Subjective
-
Date of Service: October 02, 2024
Objective Data
-
PT 20.2 Sec (11.4-14.6) H 09/29/24 12:41
INR 1.71 09/29/24 12:41
APTT 31.3 Sec (23.4-35.0) 09/29/24 12:41
Vital Signs
Vital Signs
Temp Pulse Resp BP Pulse Ox
97.7 F 60 16 113/70 93
10/02/24 00:00 10/02/24 00:00 10/02/24 00:00 10/02/24 00:00 10/02/24 00:00
CT Intake/Output/Weight
10/01/24 10/01/24 10/02/24
06:59 18:59 06:59
Intake Total 604.6 / 1092.2 30 / 420 390 / 420
Output Total 680 / 1525 830 / 940 110 / 940
Balance -75.4 / -432.8 -800 / -520 280 / -520
SaO2: 93
Physical Exam
-
General: Awake and Oriented
Cardiovascular: Regular rate & rhythm, No Murmurs and No Rub
Respiratory: Clear and Equal
Sternum: Stable
Incision: Clean, Dry and Intact
Extremities: No Edema and No Erythema
Data Reviewed
-
Lab Results: Results Reviewed
Medications: Active Meds Reviewed
Chest X-Ray: Report Reviewed
ECG: Report Reviewed
[2024-10-02 04:52] LABS: Hematocrit 26.5 % (39.0-52.0); Hemoglobin 9.2 g/dL (13.0-18.0); Mean Corp Hgb Conc. 34.7 g/dL (33.0-37.0); Mean Corpuscular Hgb 33.3 pg (27.0-31.0); Mean Platelet Volume 10.4 fL (7.4-10.4); Platelet Count 114 10^3/uL (130-400); Red Blood Cell Count 2.76 10^6/uL (4.70-6.10); White Blood Cell Count 13.5 10^3/uL (4.8-10.8)
[2024-10-02 05:07] LABS: Blood Urea Nitrogen 25 mg/dl (9-20); Calcium 8.1 mg/dl (8.4-10.2); Carbon Dioxide 31 mmol/L (22-30); Chloride 96 mmol/L (98-107); Estimated Creatinine Clearance 95 ml/min; Glucose 105 mg/dl (70-99); Magnesium 2.1 mg/dl (1.6-2.3); Potassium 4.2 mmol/L (3.5-5.1); Sodium 129 mmol/L (135-145); eGFR > 60.00
[2024-10-02] MEDS: ROXICODONE 5 MG PO (05:15)
[2024-10-02] MEDS: TYLENOL 1000 MG PO ×2 (05:15→21:43)
--- NOTE | 2024-10-02 05:48 | PTCARENOTE ---
Patient OOB to toilet to have a BM, able to ambulate with assistance with minimal dizziness upon standing. Small BM some formed/mostly liquid and voided 50 mLs with urine in the toilet as well. PVR 522 - patient straight cathed, see work list. At
the time of standing OOB, pt dumped 215 mLs of serous drainage into his CT chamber. After getting back in bed, some ectopy on telemetry. CVNP updated.
--- NOTE | 2024-10-02 07:28 | W.PN.CD ---
Today's Communication / Plan
-
PPM tooday
Impression / Plan
-
Background: 79 yo male with MVP with progressive MR, PVCs, mild and paroxysmal AF who is here for MVR with CABG.
s/p MV repair and CABG with KWOK to LAD and SVG to OM1, LA MAZE and LAZARUS exclusion 35 mm Device
-SKIP: EF 60-65%
- continues on ASA, Plavix, statin
Rhythm
-temp pacer dependent with underlying complete heart block
-remains in complete heart block will proceed to PPM
HTN
-assess to add back ARB as he recovers from OR
Paroxysmal A fib
-eventually add back eliquis and stop plavix
.
Physical Exam
Vital Signs/Labs
Vital Signs
Temp Pulse Resp BP Pulse Ox
98.2 F 62 16 126/64 96
10/02/24 04:00 10/02/24 04:00 10/02/24 04:00 10/02/24 04:00 10/02/24 04:00
10/01/24 10/02/24 10/03/24
06:59 06:59 06:59
Actual Weight 92.8 kg 91.7 kg
10/02/24 04:23
10/02/24 04:23
PT 20.2 Sec (11.4-14.6) H 09/29/24 12:41
INR 1.71 09/29/24 12:41
APTT 31.3 Sec (23.4-35.0) 09/29/24 12:41
Magnesium 2.1 mg/dl (1.6-2.3) 10/02/24 04:23
Physical Exam
Constitutional: No acute distress and Comfortable
EENT: Anicteric and Moist mucous membranes
Cardiovascular: Rhythm & rate is regular, Pedal edema is absent and JVD pressure is normal
Respiratory: Respiratory effort normal, Lungs clear to auscul. and Wheeze Absent
GI: Soft, Non tender and Normal bowel sounds
Neuro/Psych: Alert, Oriented and AO x 3
Other: Cardiac Device Site
Data Reviewed
-
Date of Service: October 02, 2024
Medical Decision Making: Reviewed Test Results, Test Interpretation and Review of Case with other Provider
EKG: Tracing Personally Visualized and interpreted
Echo: Report Reviewed by me
Labs: Labs Reviewed by me
Old Records: Reviewed
[2024-10-02] MEDS: LASIX 40 MG IV (08:21)
[2024-10-02] MEDS: BACTROBAN 2% OINTMENT 1 APPLIC NASAL ×2 (08:21→21:44)
[2024-10-02] MEDS: PLAVIX 75 MG PO (08:22)
[2024-10-02] MEDS: PROTONIX 40 MG PO (08:22)
[2024-10-02] MEDS: LOW STRENGTH ASPIRIN 81 MG PO (08:22)
[2024-10-02] MEDS: MUCINEX 600 MG PO ×2 (08:22→21:43)
[2024-10-02] MEDS: MAGNESIUM OXIDE 500 MG PO ×2 (08:22→21:44)
[2024-10-02] MEDS: LIDOCAINE 4% PATCH TOPICAL (08:22)
[2024-10-02] MEDS: NEURONTIN 100 MG PO ×2 (08:22→21:44)
[2024-10-02] MEDS: SENOKOT-S PO ×2 (08:22→21:45)
--- NOTE | 2024-10-02 11:33 | W.PN.INTV ---
Addendum entered and electronically signed by Walter Snow MD 10/03/24 09:14:
-Senior Lead Project Manager service signs off, please call as needed.
Original Note:
Today's Communication / Plan
Recommendations
- Continue incentive spirometry, activity as tolerated
Assessment
-
Patient is a 79-year-old gentleman with known history of mitral valve prolapse as well as paroxysmal A-fib and SVT in the past status post ablation. Patient follows up with cardiology services outpatient and had echocardiogram with worsening mitral
regurgitation noted earlier this year. This was followed by a cardiac catheterization which showed single-vessel coronary artery disease. Patient was subsequently referred to cardiothoracic surgery service for surgical valve repair as well as
coronary artery bypass graft. Postsurgery, patient admitted to cardiovascular ICU. Senior Lead Project Manager consult was requested for further input.
S/p CABG x 2, radical mitral valve repair, left atrial appendage exclusion with surgical left atrial maze procedure, POD #3
Patient is off all drips
ECHO and SKIP reviewed, severe MR pre-op
PA catheter removed,
Management of chest tubes per primary service
Extubated, no respiratory distress, 95% on RA now
Pain control
CXR with improving atelectasis. Tolerating lasix well.
No prior history of pulmonary disease
Can add nebulizers if needed
Aspiration precautions
Encouraged incentive spirometry, OOB/ambulation/early mobility
Advance diet as tolerated following extubation
GI prophylaxis, currently on Protonix
Monitor critical I/O's
Lee/chest tube output
Trend CBC for now
Can transfuse if indicated for Hb <7, plt <50 in surgical patients
DVT prophylaxis including SCDs
Insulin protocol initiated and ongoing, anticipate transition to s.c. in AM.
Medical co-morbidities:
# Severe Mitral valve prolapse with Regurgitation
-s/p MVR
# Paroxysmal SVT and Atrial Fibrillation s/p ablation.
-Eliquis resumption when cleared by surgery service
-Currently paced rhythm on the monitor (s/p maze procedure 09/2024). Scheduled for pacemaker insertion.
# CAD, single vessel. s/p CABG
-Currently on ASA, Plavix and Statins. Metoprolol and Amiodarone on hold due to paced rhythm
Critical Care time 42 mins -- The patient is admitted for acute critical illness for the treatment of vital organ failure and/or prevention of further life-threatening conditions. Total care includes time spent in review of history, physical exam,
medications, hemodynamic/ventilator parameters, laboratory data, imaging and discussion with house staff, pharmacy, respiratory therapy, economic forecaster, and nursing.
Data
CT Chest 09/2024: 1. Clear lungs, without evidence of lobar pneumonia, pleural effusion, or significant pulmonary nodule.
2. Severe coronary arterial calcification, consistent with the patient's history of coronary artery disease.
3. Cholelithiasis.
Cardiac Cath: 09/2024: 1. Single vessel obstructive coronary artery disease as described with iFR positive proximal LAD
2. Mildly elevated LV filling pressure and no aortic stenosis
RECOMMENDATIONS
1. Secondary prevention of coronary artery disease
2. Consider KWOK to LAD at time of mitral valve repair versus medical management
SKIP 09/2024: Normal left ventricular chamber size. Normal left ventricular systolic
function. Normal regional wall motion. Normal left ventricular wall thickness.
Left ventricular ejection fraction is 60%.
Normal right ventricular size and function.
Moderately dilated left atrium.
Thickened mitral valve leaflets are present with posterior mitral annular
calcification. There is tethering of the posterior leaflet at P2 and P3 with
significant P2/P3 prolapse. There is an eccentric jet of moderate to severe
mitral regurgitation. Peak E wave velocity 77 cm/s. Mean mitral gradient 3
mmHg.
Thickened aortic valve with normal leaflet excursion. Mild aortic
regurgitation.
ECHO 09/2024: Normal left ventricular systolic function estimated ejection fraction 55 to 60%
Mitral valve prolapse with moderate to severe eccentric mitral regurgitation
Mild aortic stenosis. Mild aortic regurgitation.
Mild tricuspid regurgitation.
Compared to the previous report 01/17/2024 there is increased severity of mitral
regurgitation. MR now reported as moderate to severe. Previously reported as
moderate. An additional jet of mitral regurgitation is noted in the
parasternal long axis view which is not seen on the previous study.
Subjective Dataa
Subjective Data
Date of Service:
Date of Service: October 02, 2024
Subjective:
Patient lying in bed comfortably, no acute distress. No new symptoms reported.
Review of Systems
Genitourinary: Other (All 14 systems reviewed and negative except as stated above in the history of present illness.)
Objective Data
Data Reviewed
Vital Signs / I&O / Oxygen:
Vital Signs
Temp Pulse Resp BP Pulse Ox
98.1 F 62 18 126/64 96
10/02/24 08:00 10/02/24 04:00 10/02/24 08:00 10/02/24 04:00 10/02/24 08:00
Intake and Output
10/01/24 10/02/24 10/03/24
06:59 06:59 06:59
Intake Total 1092.2 / 1092.2 470 / 470 370 / 370
Output Total 1525 / 1525 1465 / 1465 10 / 10
Balance -432.8 / -432.8 -995 / -995 360 / 360
SaO2 [CPAP/PSV] 99
SaO2 [SIMV] 99
SaO2 96
Nasal Cannula flow liters per 2
minute
Physical Exam
General: Comfortable
HEENT: Normocephalic
Cardiovascular: Other (Paced rhythm)
Respiratory: Clear and Non-Labored Respirations
GI: Soft and Non Distended
Neurology: Awake and Alert
Skin: Warm
Labs/Micro/Reports
Lab Data
10/02/24 04:23
10/02/24 04:23
--- NOTE | 2024-10-02 12:54 | PTCARENOTE ---
LT chest wall prepped for PPM insertion, telemetry leads moved away from site and chest cleansed with CHG wipes. VSS, Assessment unchanged from prior.
--- NOTE | 2024-10-02 12:59 | CM ---
Chart reviewed. Patient is OOB sitting in the chair, at bedside. Patient is waiting for a PPM. Patient is independent of ADLS, lives with his in a 1 STH, 1-2 [facility], 0 DME. Plan is for the patient to return home with CT Transitional RN.
CM to follow
--- NOTE | 2024-10-02 13:56 | PN.CDI ---
CDI
- -
CDI:
Physician Documentation Request
Admit Date: 09/29/24 05:[address] Surgery,
Clinical Indicators:
Patient admitted with Severe mitral valve insufficiency & MV CAD; s/p Mitral valve repair, CABG x 2, LA maze, & LAZARUS exclusion 09/29.
10/01 (00:00) RN note, 'O2 increased to 4L.'
10/01 (17:32) RN note, 'weaned to RA.'
10/02 (05:48) RN note, 'Patient placed on 2LNC while in bed for borderline SpO2 89-90%'
02 requirements:
09/30/24
10:06 09/30/24
12:00 10/01/24
00:00
Oxygen Mode of Delivery Room air
Nasal Cannula flow liters per minute 1 4
10/01/24
12:00 10/02/24
04:00
Oxygen Mode of Delivery Room air
Nasal Cannula flow liters per minute 2
Please clarify which of the following accurately represents the patient's respiratory status following surgery:
Acute postoperative pulmonary insufficiency
Hypoxia only
Other, please specify
Additional information for Pulmonary Insufficiency:
Consider when patients require custodial oxygen therapy postoperatively
Weaned off oxygen initially then requiring supplemental oxygen
No other definitive diagnosis to support the need for oxygen (COPD exac, CHF etc.)
Unable to wean from vent
When criteria for respiratory failure not present
May extend stay or require additional resources; may need home O2
Additional information for Respiratory Failure:
Recognized criteria for Respiratory Failure (Source: [facility] Mar/Apr 2013)
ABGs: (1 or more) Symptoms Indicate:
1. p)2 <60 or RA SPO2 <91% on RA 1. Tachypnea, SOB, dyspnea 1. Type as:
2. pCO2 50 and pH <7.35 2. Use of accessory muscles a. Hypoxic
3. pO2 decrease of pCO2 increase by 3. Pallor or cyanosis b. Hypercapnic
10 mmHg from baseline if known 4. Anxiety or restlessness 2. If due to procedure or due to another cause
5. Unable to speak in full sentences
Supplemental O2 of > 40% Intubation is not required
Use of terms such as suspected, likely, concern for, or probable (associated with a specific diagnosis that is being evaluated, monitored, or treated as if it exists) are acceptable and can be coded in the inpatient setting, when documented at the
time of discharge.
Thank you,
SAPNA Dunaway RN
CDI Specialist
available via tiger text
Please use your independent medical judgment in providing your response.
[2024-10-02] MEDS: NSS IV (15:12)
[2024-10-02] MEDS: FERRLECIT 110 MG IV (15:12)
[2024-10-02] MEDS: TYLENOL PO (15:12)
--- NOTE | 2024-10-02 15:20 | PTCARENOTE ---
REport given to EP lab , pt transferred in bed. VSS
--- NOTE | 2024-10-02 18:13 | ITS.CL.PACE ---
Supervisor [employer] - Pacemaker Implant
Pacemaker Implant
Procedure Report:
BUNDLE CUTTER-P with Bi-Ventricular Permanent Pacemaker (BiV-PPM) Placement:
Mr. Fields is a 79 years old gentleman with CAD, Severe mitral valve insufficiency / mv-CAD - s/p Radical mitral valve repair; CABG x 2 [in situ KWOK to LAD, Ao to RSVG to OM1); Open surgical left atrial maze [RF ablation and cryo]; Left atrial
appendage exclusion [35 mm device] on 09/29/24, pod #3 and is in complete heartt block s/p paced via epicardial wires and is recommended to proceed with the BiV pacemaker and he is here for his device implantation.
Indications: Complete AV block
Date of the Procedure: 10/02/2024
Pre-Operative Diagnosis: Complete AV block
Post-Operative Diagnosis: Complete AV block
Procedure Performed: BUNDLE CUTTER-P with BIVENTRICULAR PERMANENT PACEMAKERR IMPLANTATION
Performing Physician:
Lexus Cordova MD
Anesthesia:
See anesthesia records
Detailed Description of the Procedure:
The patient was identified using hospital identification and informed consent obtained for the procedure. The risks were explained to the patient and the family including, but not limited to: Bleeding, infection, arrhythmia, stroke,
vascular/cardiac/lung puncture, surgery, pacemaker dependency/device malfunction. All questions were answered.
A surgical pause was performed in accordance with hospital regulations. Anesthesia service provided sedation as reported separately. Antibiotics administered IV for risk of bacterial colonization. After obtaining informed and written consent, the
patient was brought to the electrophysiology laboratory.
A timeout was performed immediately before the procedure. The left chest was prepped from the nipple to the angle of the jaw with chlorhexidine, and draped following sterile technique in usual routine.�
The procedure site was meticulously prepared with surgical scrub and allowed to dry with no pooling. Sterile draping was applied to cover the procedure site. The image intensifier was draped with sterile bag and positioned over the patient.
The left infra-clavicular region was prepped and draped in the usual sterile fashion. Local anesthesia was administered subcutaneously using 1% lidocaine / Bupivacaine. The left cephalic vein cut-down was performed with an incision at the
delto-pectoral groove, and vascular sheaths were introduced for lead access.
These were advanced into the right ventricle and the right atrium.
Attention turned to the coronary sinus. The guide wire was advanced to the IVC and a long hemostatic extended hook peel away sheath was advanced to the RA.
The CS was cannulated using radiofocus glidewire but the wire would not advance deep into the CS. The deflectable Bard catheter was advanced in the sheath and the CS was cannulated and was eventually moved past the sharp bend in the CS. The sheath
was advanced over the catheter across the bend into the CS. The EP catheter was removed. The glidewire was placed into the CS and coronary sinus venography was obtained with a balloon catheter in the CS. CS anatomy revealed a posterolateral branch
and an maria dolores-lateral vein. The posterolateral branch was accessed using a Whisper wire. But the branch was too small to accommodate the LV lead.
The venogram showed another posterolateral branch that was chosen for the implantation. The branch was an acute merry and was not able to access with the wire and decision was made to proceed with an inner sheath. The posterolateral branch was
accessed using a Whisper wire in the inner sheath. The quadripolar lead was used and advanced into the postero-lateral branch over the wire.
During pacing, QRS complex was favorable, with a QS in lateral leads and RBBB configuration during LV pacing. It was deemed ideal for biventricular pacing. Diaphragmatic stimulation was not present with high output pacing here. The long guiding
sheath and inner sheath were removed from the vein and then from the body without change in lead position, impedance, sensing, or capture.
Then the attention was given to RV pacing lead. The guide wires were advanced to the inferior vena cava (IVC) under flouro guidance. The guide wire was advanced to the RA and was advanced to the RV. The preformed curved long hemostatic peel away HIS
sheath was advanced into the RV cavity. A left bundle pacing wire was advanced into the sheath to the tip with ventricular signals noted with unipolar manner. The HIS location was identified under guidance of the flouroscopy and the pacing wire
signals. The sheath with the pacing lead was moved deeper into the RV cavity on the septum at a more inferior and distal to the HIS signals.
Once adequate signals were noted on the electrograms of the pacing lead in the sheath with W pattern signals on the RV septum, the lead was advanced and clockwise turns were done under fluoroscopic guidance. The septum was engaged and the lead was
paced intermittently after every 2-3 turns. The Impedance of the lead was measured that remained stable around 1000 Ohm.
The ventricular capture was monitored throughout and the captures gradually changed from RV pacing to non-selective pacing to LBB pacing with R wave on V1.
Then the atrial lead was placed in the RA with active fixation.
Short NC interval permitted Adaptive BUNDLE CUTTER pacing with BiV pacing. The leads were sutured to the underlying pectoralis fascia with 2-0 Ethibond stitches.�
Some oozing was seen at access sites. This was managed with manual pressure and a loose pursestring suture.�
The leads were attached to the pulse generator in standard configuration with acceptable sensing and threshold parameters.
The atrial lead was noted to have dislodged and active lead was not staying in the position due to tortuosity of the subclavian veins. The atrial lead was removed and a passive estuardo lead was placed in the right atrium with excellent sensing and
thresholds.
The pocket was irrigated with antibiotic solution; the pocket was inspected with no active bleeding noted. The device and the leads were placed in the pocket.
A Tyrx pouch was placed around the device and the leads.
Deep subcutaneous tissues were closed with 2-0 VLOC sutures; intermediate subcutaneous tissue was reopposed using a running 2-0 V loc suture, and the dermis was reopposed using a running 4-0 Monocryl subcuticular suture. Sponge counts / sharp counts
were appropriate.
Procedure End:
The procedure was tolerated well. Aquacel bandaged was applied. A pressure dressing was applied.
Estimated Blood loss:
10 cc
Specimens Removed:
No cultures and no specimens were obtained. No intraoperative pathology was identified.
Urine output:
None
Packs / Drains/ Tubes:
None
Instrument / Sponge Count Correct:
Yes
Flouro time:
23.8min / 36.4Gycm2
Contrast used:
6ml
Complications of the Procedure:
None
Condition of Patient at Time of Transfer:
Hemodynamically stable with no neurological or vascular compromise.
Device information:�
Generator: [employer]; Model: W4TR01; Serial # [id number]�
����������� Atrial Lead: Medtronic; Model: 4574-53; Serial # [id number]
����������������������� Measured data in the right atrium was sensing of 1.0 mV and, impedance of 570ohms and threshold of 0.75 V at 0.4ms.�
����������� RV Lead: Medtronic; Model: 3830-69; Serial # [id number]
����������������������� Measured data on the RV lead was sensing of 6 mV, impedance of 760 ohms and threshold of 0.75 V at 0.4ms.�
����������� LV pacing lead: Medtronic; Model: 4298-88; Serial # [id number]
����������������������� Measured data on the LV lead was impedance of 760 ohms and threshold of 1.2 V at 0.4ms (LV4 to coil; diaphragm not seen at max output for all the various combination tested).
PROGRAMMING PARAMETERS:�
Pj parameter settings were DDDR 60-130 �
����������� Paced AV interval: 130ms
����������� Sensed AV interval: 100 ms.
����������� Rate Adaptive A-V Interval: on
Summary:
Successful implantation of BUNDLE CUTTER-P
Instructions to be given to patient:�
- Please follow up with [facility] at [address] [place] [address] ([phone]) to get your wound checked in 2 weeks of your discharge.
- Do not wet incision site until after it is evaluated at cardiology clinic. No baths or showers until then. Sponge baths / showers are OK but dab dry the dressing after it is wet.�
- Allow 'steri strips' to fall off on their own�
- Do not lift left elbow above shoulder, particularly with sudden jerking movements, for 1 month�
- Do not lift anything weighing more than 5 pounds with the left arm for 1 month�
- If you notice any fevers, shortness of breath, lightheadedness, chest pain, or worsening swelling in the wound site, please contact the arrhythmia clinic, contact your piecer up, or present to the hospital for evaluation.�
Lexus Cordova MD
Electrophysiology
--- NOTE | 2024-10-02 18:23 | PTCARENOTE ---
Received pt back from laborer landscape team, sleepy but oriented x 4. V paced on the monitor. LT chest wall dressing c,d,i. Immobilizer in place. VSS
[2024-10-02] MEDS: LIPITOR PO (18:53)
[2024-10-02] MEDS: NEURONTIN PO (18:53)
[2024-10-02] MEDS: LASIX IV (18:53)
--- NOTE | 2024-10-02 20:00 | PTCARENOTE ---
Assumed care of the patient at 1900. Patient in bed, AOx3, pleasant, pain an acceptable level at this time. AV paced on the monitor; patient with new pacemaker from today on his LCW, arm in sling, pressure dressing CDI; heart audible, pulses
palpable, trace - +1 edema. CTx2 removed per order, patient tolerated the procedure well. No additional output from previous marking; lungs dim at the bases, on 2LNC. Hyperactive BS, patient had BM and voided without difficulty in the urinal praneeth
urine. All surgical sites CDI PRODUCTION EDITOR with the exception of the pacemaker previously mentioned. RIJ cordis infusing KVO, PIV x2 INT. See nursing work list for additional intervention details.
[2024-10-02] MEDS: PACERONE 200 MG PO (21:45)
[2024-10-03] VITALS (12 sets, daily range): BP systolic 113–149; BP diastolic 64–80; PULSE 78; O2SAT 96; BMI 27.1
--- NOTE | 2024-10-03 | PTCARENOTE ---
No changes, patient sleeping between care. VSS.
--- NOTE | 2024-10-03 03:34 | W.PN.CT ---
Today's Communication / Plan
-
Plan:
-No major issues overnight. Hemodynamically and neurologically intact
-S/P PPM yesterday 10/02 for postop CHB, pocket C/D/I with dressing and arm sling applied
-Currently v-paced @ 75 bpm
-Will resume Amiodarone and BB
-Will consider resumption of Eliquis today
-D/C cordis
-Temporary PW and mediastinal chest tubes d/c'd yesterday
-F/U 2-view cxr
-Repeat echo yesterday showed a well seated MV repair, with PG/MG of 05/13, trace MR, mild /AI, EF 50-55%
-F/U hyponatremia, 130, was 129 yesterday, cont. diuresis, fluid restriction
-Cont. current meds (ASA, Plavix, Lipitor, Protonix, Amiodarone, Toprol XL)
-Wean off of O2
-Encourage use of IS
-OOB into chair/Ambulate
-D/C home today vs tomorrow
Assessment / Plan
-
- Severe mitral valve insufficiency / mv-CAD - s/p Radical mitral valve repair; CABG x 2 [in situ KWOK to LAD, Ao to RSVG to OM1); Open surgical left atrial maze [RF ablation and cryo]; Left atrial appendage exclusion [35 mm device] on 09/29/24, pod
#4
- Complete heart block postop S/P BiV PPM, 10/02/24
- Intraop SKIP: LVEF 55% preop and postop, no new regional wma. After coming off cardiopulmonary bypass, there was trace, trace to mild residual mitral valve insufficiency at a cleft between P1 and P2, no systolic anterior motion, and a mean gradient
of 1 across the valve. The left atrial appendage is found to be totally occluded without residual flow and no stump.
- Multi vessel CAD
- Severe mitral valve insufficiency secondary to degeneration, type II pathology with area of calcification
- Paroxysmal atrial fibrillation, on chronic anticoagulation (Eliquis)
- History of DVTs LLE (post trauma)
- History of brain aneurysm
- History of SVT
- Degenerative disc disease
- Former smoker
- Cholelithiasis
- Acute postop blood loss anemia - stable without transfusion
- Acute postop thrombocytopenia
- Acute postop atelectasis
- Acute postop hypovolemia with subsequent hypervolemia
- Complete heart block postop S/P BiV PPM, 10/02/24
- Acute postop hyponatremia
Discussed patient care with: Cardiology, Nursing, Respiratory Therapy, Pharmacy and Care Team
Subjective
-
Date of Service: October 03, 2024
Pt c/o mild incisional pain, otherwise feels well
Objective Data
-
PT 20.2 Sec (11.4-14.6) H 09/29/24 12:41
INR 1.71 09/29/24 12:41
APTT 31.3 Sec (23.4-35.0) 09/29/24 12:41
Vital Signs
Vital Signs
Temp Pulse Resp BP Pulse Ox
97.7 F 78 14 120/71 97
10/03/24 00:00 10/03/24 00:00 10/03/24 00:00 10/03/24 00:00 10/03/24 00:00
CT Intake/Output/Weight
10/02/24 10/02/24 10/03/24
06:59 18:59 06:59
Intake Total 440 / 470 400 / 760 360 / 760
Output Total 635 / 1465 1360 / 1680 320 / 1680
Balance -195 / -995 -960 / -920 40 / -920
SaO2: 97 (2L)
Physical Exam
-
General: Awake, Oriented and AOx3
Cardiovascular: Regular rate & rhythm, No Murmurs, No Rub and No Gallop
Respiratory: Decreased Breath Sounds (at bases, otherwise clear)
Sternum: Stable
Incision: Clean, Dry, Intact and Dressing Intact
Extremities: Other (+trace edema)
Data Reviewed
-
Lab Results: Results Reviewed
Medications: Active Meds Reviewed
Chest X-Ray: Report Reviewed and Image Reviewed
ECG: Report Reviewed and Image Reviewed
[2024-10-03] MEDS: ANCEF 5 IV ×2 (03:44→08:22)
--- NOTE | 2024-10-03 04:18 | PTCARENOTE ---
No acute changes, VSS, patient sleeping between care. Voiding spontaneously without difficulty.
[2024-10-03 04:27] LABS: Hematocrit 25.4 % (39.0-52.0); Hemoglobin 8.7 g/dL (13.0-18.0); Mean Corp Hgb Conc. 34.3 g/dL (33.0-37.0); Mean Corpuscular Volume 96.2 fL (80.0-94.0); Mean Platelet Volume 10.5 fL (7.4-10.4); Platelet Count 114 10^3/uL (130-400); Red Blood Cell Count 2.64 10^6/uL (4.70-6.10); Red Cell Dist. Width 12.6 % (11.5-14.5); White Blood Cell Count 7.3 10^3/uL (4.8-10.8)
[2024-10-03 04:58] LABS: Blood Urea Nitrogen 18 mg/dl (9-20); Calcium 7.7 mg/dl (8.4-10.2); Carbon Dioxide 29 mmol/L (22-30); Chloride 96 mmol/L (98-107); Estimated Creatinine Clearance 111 ml/min; Glucose 141 mg/dl (70-99); Magnesium 2.2 mg/dl (1.6-2.3); Potassium 4.4 mmol/L (3.5-5.1); Sodium 130 mmol/L (135-145); eGFR > 60.00
[2024-10-03] MEDS: TYLENOL 1000 MG PO ×3 (06:06→21:22)
[2024-10-03] MEDS: CALCIUM GLUCONATE 100 IV (06:07)
[2024-10-03] MEDS: MAGNESIUM OXIDE 500 MG PO ×2 (07:56→21:22)
[2024-10-03] MEDS: LOW STRENGTH ASPIRIN 81 MG PO (07:56)
[2024-10-03] MEDS: PACERONE 200 MG PO ×3 (07:56→21:22)
[2024-10-03] MEDS: MUCINEX 600 MG PO ×2 (07:56→21:22)
[2024-10-03] MEDS: TOPROL XL 12.5 MG PO ×2 (07:56→21:22)
[2024-10-03] MEDS: NEURONTIN 100 MG PO ×3 (07:56→21:22)
[2024-10-03] MEDS: BACTROBAN 2% OINTMENT 1 APPLIC NASAL (07:56)
[2024-10-03] MEDS: PROTONIX 40 MG PO (07:56)
[2024-10-03] MEDS: PLAVIX 75 MG PO (07:56)
[2024-10-03] MEDS: SENOKOT-S PO (07:57)
--- NOTE | 2024-10-03 08:14 | PTCARENOTE ---
Assumed care of retail shift supervisor RN. AAO x 3 sitting up in the chair. 100% paced on monitor. Lt chest wall dressing c,d,i. Sling in place. Room air 94%, Using IS independently. Abdomen soft and non tender. Passing flatus. Voiding independently.
Pulses palpable. Trace edema appreciated. Plan for day discussed.
[2024-10-03] MEDS: NSS 500 IV (08:23)
--- NOTE | 2024-10-03 09:21 | W.PN.CD ---
Today's Communication / Plan
-
- PPM site looks good
- CXR ordered
- Ambulate
- Follow up in cardiology office in a week for incision check.
Impression / Plan
-
Background: 79 yo male with MVP with progressive MR, PVCs, mild and paroxysmal AF who is here for MVR with CABG.
s/p MV repair and CABG with KWOK to LAD and SVG to OM1, LA MAZE and LAZARUS exclusion 35 mm Device
-SKIP: EF 60-65%
- continues on ASA, Plavix, statin
Complete heart block
- s/o OUTREACH TEAM MEMBER-P - Medtronic MRI compatible system
- Conduction system 3830 wire in RV, CS lead for LV capture
- PPM site looks good.
- Pressure dressing removed
- OK to start Eliquis tomorrow.
HTN
-assess to add back ARB as he recovers from OR
Paroxysmal A fib
-Ok add back eliquis in AM.
-stop plavix
.
Physical Exam
Vital Signs/Labs
Vital Signs
Temp Pulse Resp BP Pulse Ox
98.0 F 76 16 132/74 94
10/03/24 08:00 10/03/24 08:00 10/03/24 08:00 10/03/24 07:56 10/03/24 08:17
10/02/24 10/03/24 10/04/24
06:59 06:59 06:59
Actual Weight 91.7 kg 90.4 kg
10/03/24 03:47
10/03/24 03:47
PT 20.2 Sec (11.4-14.6) H 09/29/24 12:41
INR 1.71 09/29/24 12:41
APTT 31.3 Sec (23.4-35.0) 09/29/24 12:41
Magnesium 2.2 mg/dl (1.6-2.3) 10/03/24 03:47
Physical Exam
Constitutional: No acute distress and Comfortable
EENT: Anicteric and Moist mucous membranes
Cardiovascular: Rhythm & rate is regular and Pedal edema is absent
Respiratory: Respiratory effort normal, Lungs clear to auscul. and Wheeze Absent
GI: Soft, Non tender and Normal bowel sounds
Neuro/Psych: Alert, Oriented and AO x 3
Other: Cardiac Device Site
Data Reviewed
-
Date of Service: October 03, 2024
--- NOTE | 2024-10-03 11:55 | PTCARENOTE ---
RT IJ cordis removed , hemostasis achieved w/o issue. Assist x 1 oob to chair. Pt states he does not feel ready physically to go home yet. Emotional support provided. 2 view chest x ray obtained. at bedside. VSS. Assessment otherwise
unchanged from prior.
[2024-10-03] MEDS: LIPITOR 40 MG PO (15:50)
--- NOTE | 2024-10-03 17:22 | PTCARENOTE ---
Ambulating in room with RN, Denies pain at present. VSS. Assessment unchanged from prior.
[2024-10-03] MEDS: REGLAN 10 MG PO (19:06)
--- NOTE | 2024-10-03 19:10 | PTCARENOTE ---
Pt c/o persistent hiccups. Discussed with CT PILOT PLANT TECHNICIAN . Reglan ordered and administered.
--- NOTE | 2024-10-03 20:00 | PTCARENOTE ---
assumed care of patient @ 1900. recieved pt laying in bed, Aox3. V paced on monitor, BP stable. Lungs clear, diminished on room air satting mid 90s. having intermittent hiccups, reglan given by dayshift with relief. voiding clear yellow urine in
toilet. Sternum, R knee, R groin sites CDI, MONONITROTOLUENE OPERATOR. L forearm PIV patent. pt resting comfortably in bed with call stevens within reach .
[2024-10-03] MEDS: SENOKOT-S 1 TABLET PO (21:22)
--- NOTE | 2024-10-04 | PTCARENOTE ---
pt resting comfortably in bed, no change in assessment .
--- NOTE | 2024-10-04 02:48 | W.PN.CT ---
Today's Communication / Plan
-
Plan:
-No major issues overnight. Hemodynamically and neurologically intact
-S/P PPM 10/02 for postop CHB, pocket C/D/I
-Currently v-paced @ 75 bpm
-Tolerating resumption of Amiodarone and BB
-Will resume Eliquis and stop Plavix today
-Repeat echo on 10/02 showed a well seated MV repair, with PG/MG of 05/13, trace MR, mild /AI, EF 50-55%
-F/U hyponatremia, 134, was 130 yesterday, cont. diuresis, fluid restriction
-Replete k, 3.9
-Cont. current meds (ASA, Eliquis, Lipitor, Protonix, Amiodarone, Toprol XL)
-Encourage use of IS
-OOB into chair/Ambulate
-D/C home today
Assessment / Plan
-
- Severe mitral valve insufficiency / mv-CAD - s/p Radical mitral valve repair; CABG x 2 [in situ KWOK to LAD, Ao to RSVG to OM1); Open surgical left atrial maze [RF ablation and cryo]; Left atrial appendage exclusion [35 mm device] on 09/29/24, pod
#5
- Complete heart block postop S/P BiV PPM, 10/02/24
- Intraop SKIP: LVEF 55% preop and postop, no new regional wma. After coming off cardiopulmonary bypass, there was trace, trace to mild residual mitral valve insufficiency at a cleft between P1 and P2, no systolic anterior motion, and a mean gradient
of 1 across the valve. The left atrial appendage is found to be totally occluded without residual flow and no stump.
- Multi vessel CAD
- Severe mitral valve insufficiency secondary to degeneration, type II pathology with area of calcification
- Paroxysmal atrial fibrillation, on chronic anticoagulation (Eliquis)
- History of DVTs LLE (post trauma)
- History of brain aneurysm
- History of SVT
- Degenerative disc disease
- Former smoker
- Cholelithiasis
- Acute postop blood loss anemia - stable without transfusion
- Acute postop thrombocytopenia
- Acute postop atelectasis
- Acute postop hypovolemia with subsequent hypervolemia
- Complete heart block postop S/P BiV PPM, 10/02/24
- Acute postop hyponatremia
Discussed patient care with: Cardiology, Nursing, Respiratory Therapy, Pharmacy and Care Team
Subjective
-
Date of Service: October 04, 2024
Pt c/o mild incisional pain, otherwise feels well. Ambulating halls without difficulty. Hiccups have resolved
Objective Data
-
Lab Results
10/03/24 03:47
10/03/24 03:47
PT 20.2 Sec (11.4-14.6) H 09/29/24 12:41
INR 1.71 09/29/24 12:41
APTT 31.3 Sec (23.4-35.0) 09/29/24 12:41
Vital Signs
Vital Signs
Temp Pulse Resp BP Pulse Ox
98.5 F 70 16 119/64 96
10/03/24 21:20 10/04/24 01:30 10/03/24 23:50 10/03/24 23:52 10/03/24 23:50
CT Intake/Output/Weight
10/03/24 10/03/24 10/04/24
06:59 18:59 06:59
Intake Total 545 / 945 1090 / 1090
Output Total 1260 / 2620 625 / 1275 650 / 1275
Balance -715 / -1675 465 / -185 -650 / -185
SaO2: 96 (RA)
Physical Exam
-
General: Awake, Oriented and AOx3
Cardiovascular: Regular rate & rhythm, No Murmurs, No Rub and No Gallop
Respiratory: Decreased Breath Sounds (at bases, otherwise clear)
Sternum: Stable
Incision: Clean, Dry, Intact and Dressing Intact
Extremities: Other (+trace edema)
Data Reviewed
-
Lab Results: Results Reviewed
Medications: Active Meds Reviewed
Chest X-Ray: Report Reviewed and Image Reviewed
ECG: Report Reviewed and Image Reviewed
[2024-10-04 04:17] VITALS: BP 147/81
--- NOTE | 2024-10-04 04:53 | PTCARENOTE ---
labs drawn and sent. pt resting comfortably, no change in assessment .
[2024-10-04 05:16] LABS: Hematocrit 27.4 % (39.0-52.0); Hemoglobin 9.4 g/dL (13.0-18.0); Mean Corp Hgb Conc. 34.3 g/dL (33.0-37.0); Mean Corpuscular Hgb 32.8 pg (27.0-31.0); Mean Corpuscular Volume 95.5 fL (80.0-94.0); Platelet Count 152 10^3/uL (130-400); Red Blood Cell Count 2.87 10^6/uL (4.70-6.10); Red Cell Dist. Width 12.7 % (11.5-14.5); White Blood Cell Count 9.5 10^3/uL (4.8-10.8)
[2024-10-04 05:31] LABS: Blood Urea Nitrogen 19 mg/dl (9-20); Calcium 8.1 mg/dl (8.4-10.2); Carbon Dioxide 29 mmol/L (22-30); Chloride 99 mmol/L (98-107); Estimated Creatinine Clearance 95 ml/min; Glucose 100 mg/dl (70-99); Magnesium 2.1 mg/dl (1.6-2.3); Potassium 3.9 mmol/L (3.5-5.1); Sodium 134 mmol/L (135-145); eGFR > 60.00
[2024-10-04] MEDS: KCL 40 MEQ PO (05:58)
[2024-10-04 06:00] VITALS: BMI 27.2
[2024-10-04] MEDS: LASIX 20 MG IV (06:00)
[2024-10-04] MEDS: TYLENOL 1000 MG PO (06:01)
[2024-10-04 06:03] VITALS: BP 139/94
[2024-10-04] MEDS: ELIQUIS 5 MG PO (09:30)
[2024-10-04] MEDS: LOW STRENGTH ASPIRIN 81 MG PO (09:30)
[2024-10-04] MEDS: NEURONTIN 100 MG PO (09:30)
[2024-10-04] MEDS: PACERONE 200 MG PO (09:30)
[2024-10-04] MEDS: SENOKOT-S 1 TABLET PO (09:30)
[2024-10-04] MEDS: MAGNESIUM OXIDE 500 MG PO (09:30)
[2024-10-04] MEDS: MUCINEX 600 MG PO (09:30)
[2024-10-04] MEDS: TOPROL XL 12.5 MG PO (09:30)
[2024-10-04] MEDS: PROTONIX 40 MG PO (09:30)
[2024-10-04] MEDS: DIOVAN 40 MG PO (09:38)
[2024-10-04 09:40] VITALS: BP 122/66
--- NOTE | 2024-10-04 09:57 | W.DCSUMMARY ---
Discharge Summary
Discharge Data
Date of Admission: 09/29/24
Date of Discharge: 10/04/24
-
Pending Results: No
Hospital Course
Primary care physician: Dr. Mejia
Outpatient material loader: Dr. Saha
Inpatient consultants: [facility] Cardiology, Pulmonary/Facilities Administrator
Procedures:
1. MVr #34mm ring, bio pericardial patch, MAZE, CABG x 2 (KWOK - LAD, SVG - OM), ELAA (35mm) on (09/29/24)
2. MDT BiV PPM (10/02/24)
Primary Diagnosis:
1. Severe mitral insufficiency due to degeneration, multivessel CAD, paroxysmal Atrial Fibrillation
Secondary Diagnoses:
1. PAF on chronic anticoagulation
2. History of DVT's (provoked s/p trauma)
3. History of cerebral aneurysm
4. History of SVT
5. Degenerative disc disease
6. Cholelithiasis
7. Acute post-op blood loss anemia - expected
8. Acute post-op thrombocytopenia - expected
9. Acute post-op atelectasis
10. Acute post-op hypovolemia with subsequent hypervolemia
11. Acute post-op complete heart block s/p BiV PPM (10/02/24)
12. Acute post-op hyponatremia
HPI: 79-year old male electively admitted on 09/29/24 for mitral valve repair, CAB, LAZARUS Clip, and MAZE due to mitral valve prolapse.
Hospital course: Pt underwent surgery on 09/29/[address] Carlisle. For further operative details, please refer to surgeon operative note. Pt did not receive any intra-operative blood products and returned to CVICU post-operative on Levophed, insulin,
and Precedex infusions. Post-procedure SKIP reported an EF of 60-65%, trace MR. Pt was extubated on day of surgery at 1600. Pt was dependent on epicardial pacing wires for A-V pacing due to complete heart kulwinder. Beta-boston and Amiodarone were held.
On POD 2, Arterial line & indwelling carvalho catheter were discontinued. EP was consulted for evaluation of CHB. on POD 3, patient underwent MDT Bi-V PPM placement, epicardial wires and MS CT were discontinued. A pre-discharge TTE (10/02/24) showed EF
50-55%, MV gradient 12/4, trace MR, mild AI. Patient was diuresed accordingly. On POD 5, patient was restarted on Eliquis and Plavix was discontinued. Amiodarone and Beta-boston were restarted. Patient was tolerating ambulation and was discharged
home. Morning labwork resulted with Hgb 9.4, Hct 27.4, Plt 152, BUN 19, Cr 0.7. Patient was noted to have no further atrial arrhythmias and Amiodarone was discontinued upon discharge. Valsartan was resumed at 40 mg daily. Lasix 20 mg daily was
added. A repeat BMP was ordered to be obtained in 1-week from day of discharge. Patient will be followed by transitional care nursing team at home upon discharge.
Home medication changes:
- Stopped Valsartan/HCTZ. Changed to Valsartan 40 mg daily.
- Added Lasix 20 mg daily x 20 days. Transitional care team & Dr. Carlisle to determine need for continuation, or additional dosing.
- Added Toprol XL 25 daily.
- Added Lipitor 40 mg daily.
Discharge Plan
-
Patient Disposition: Home (Routine Discharge)
Discharge Diagnosis/Procedures: mitral and tricuspid repair, MAZE, CABG x2, left atrial appendage clip (09/29/24); Medtronic Pacemaker implant (10/02/24)
Condition: Good
Diet: Low Cholesterol and 2 Gram Sodium
Activity: No strenuous activity
Driving Restrictions: Not until seen by your Dr
Bathing Restrictions: OK to Shower
Blood Work: Obtain BMP in 1-week
Other Services: Cardiac Rehab
Specialty Instructions: Weigh Daily- Call MD for wt gain/loss 3 lbs overnight/5 lbs in 1 week
Activity Restrictions/Additional Instructions:
ACTIVITY:
-No strenuous activity: no heavy lifting, pushing, pulling anything over 15 pounds for one month
-continue to use stairs as tolerated
DRIVING RESTRICTIONS:
-No driving for one month or until approved by your surgeon
WOUND CARE:
-Shower daily. Use soap & water.
-No lotions, creams or powders on incision area.
DIET:
-continue a low fat/low cholesterol diet.
-IF you are diabetic, continue carb controlled diet.
CARDIAC REHAB:
-Please make appointment to start in 5-6 weeks with your local hospital program. (See Cardiac Rehabilitation Discharge Booklet).
SPECIALTY INSTRUCTIONS:
-Weigh yourself daily. Call your Plastics Fabricator And Assembler for any weight gain/loss of 3 lbs overnight or 5 lbs in one week. Notify your Plastics Fabricator And Assembler if you have taken an additional dose of Lasix other than the dose prescribed at time of discharge.
-REPORT any clicking noise or uneven appearance of your sternum to your surgeon immediately.
-If you smoke, you are instructed to quit. The [place] smoking hotline phone number is [phone]
Referrals:
CT Transitional Care Nurse [Outside] (The Cardiothoracic Transitional Care Nurse will call you to set up a visit in 1-2 days.)
[facility] [Outside]
(Cardiac Rehab Orientation appointment is on Saturday, November 11, 2024 @ 09:30am.
The Cardiac Rehab gym is located on the first floor of the [facility].)
Michelle Del Rio CRNP [Specified Professional Personl] - 10/08/24 2:20 pm (Incision check appointment)
Shaggy Mejia MD [Family Provider] -
Kait Brown CRNP [Specified Professional Personl] - 11/09/24 1:30 pm
Prescriptions:
New
acetaminophen 325 mg Tablet
650 mg PO Q4HPRN PRN (Reason: mild pain,headache,temp >101F ) Qty: 0 0RF
aspirin 81 mg Tablet,Chewable
81 mg PO DAILY Qty: 0 0RF
cyclobenzaprine 10 mg Tablet
5 mg PO Q8HPRN PRN (Reason: muscle spasm) Qty: 10 0RF
valsartan 40 mg tablet
40 mg PO DAILY Qty: 30 1RF
atorvastatin 40 mg Tablet
40 mg PO QPM 30 Days Qty: 30 2RF
metoprolol succinate [Toprol XL] 25 mg tablet extended release 24 hr
25 mg PO DAILY Qty: 30 2RF
pantoprazole 40 mg Tablet,Delayed Release (Dr/Ec)
40 mg PO DAILY Qty: 30 2RF
gabapentin 100 mg Capsule
100 mg PO TID 10 Days Qty: 30 0RF
oxycodone 5 mg Tablet
5 mg PO Q4HPRN PRN (Reason: severe pain) Qty: 10 0RF
furosemide [Lasix] 20 mg tablet
20 mg PO DAILY Qty: 20 0RF
Continued
multivitamin Tablet
1 tab PO DAILY
Probiotic 10 billion cell Capsule
10,000 mmu cells PO DAILY
ascorbic acid (vitamin C) 500 mg Tablet
500 mg PO DAILY
cholecalciferol (vitamin D3) 125 mcg (5,000 unit) Tablet
125 mcg PO DAILY
Eliquis 5 mg tablet
5 mg PO BID
Discontinued
valsartan-hydrochlorothiazide 80-12.5 mg Tablet
1 tab PO DAILY
Discharge Orders:
Discharge Patient (As Directed); Ordered 10/04/24
Ordered By: Ashly Fowler
Care Plan Goals
Care Plan Goals:
Problem: Readiness for enhanced knowledge related to diagnosis and treatment plan
Goal: Understand your diagnosis and treatment plan needs, including medications if applicable.
Instructions: Know your diagnosis, underlying causes and treatment plan options, including medications if applicable. Consult with your health care team to learn about your diagnosis and treatment plan, including medications if applicable.
Discharge Date and Time
Print Language: MOHAWK
--- NOTE | 2024-10-04 10:00 | PTCARENOTE ---
PT assessed at bedside aaox4 w/o complaints of pain, V paced on monitor, Ra 98% GI and WNL. PT discharge orders in and patient walked stairs with RN. PT then showered and given all discharge instructions and verbalized understanding. all IV's
removed and PT taken down to waiting outside.
[2024-10-04 11:32] VITALS: BP 121/70
== END 2024-10-04 11:45 | disposition home or self-care (01) | DRG 219 ==
LOC: CVICU 05:00
PROVIDERS: Anesthesiology; Clinical Nurse Specialist Acute Care; Internal Medicine Cardiovascular Disease; Physician Assistant Medical; ADMITTING PHYSICIAN Thoracic Surgery (Cardiothoracic Vascular Surgery); CONSULT PHYSICIAN Internal Medicine; CONSULT PHYSICIAN Internal Medicine Cardiovascular Disease; FAMILY PHYSICIAN Family Medicine
PROC: 02100Z9 Bypass Coronary Artery, One Artery from Left Internal Mammary, Open Approach (ICD-10-PCS; 2024-09-29)
PROC: 5A1221Z Performance of Cardiac Output, Continuous (ICD-10-PCS; 2024-09-29)
PROC: 021009W Bypass Coronary Artery, One Artery from Aorta with Autologous Venous Tissue, Open Approach (ICD-10-PCS; 2024-09-29)
PROC: 02580ZZ Destruction of Conduction Mechanism, Open Approach (ICD-10-PCS; 2024-09-29)
PROC: 02U Heart and Great Vessels, Supplement (ICD-10-PCS; 2024-09-29)
PROC: 02UG08Z Supplement Mitral Valve with Zooplastic Tissue, Open Approach (ICD-10-PCS; 2024-09-29)
PROC: B24BZZ4 Ultrasonography of Heart with Aorta, Transesophageal (ICD-10-PCS; 2024-09-29)
PROC: 02L70CK Occlusion of Left Atrial Appendage with Extraluminal Device, Open Approach (ICD-10-PCS; 2024-09-29)
PROC: 06BP4ZZ Excision of Right Saphenous Vein, Percutaneous Endoscopic Approach (ICD-10-PCS; 2024-09-29)
PROC: 02H43JZ Insertion of Pacemaker Lead into Coronary Vein, Percutaneous Approach (ICD-10-PCS; 2024-10-02)
PROC: 3E0102A Introduction of Anti-Infective Envelope into Subcutaneous Tissue, Open Approach (ICD-10-PCS; 2024-10-02)
PROC: 0JH607Z Insertion of Cardiac Resynchronization Pacemaker Pulse Generator into Chest Subcutaneous Tissue and Fascia, Open Approach (ICD-10-PCS; 2024-10-02)
PROC: 02H63JZ Insertion of Pacemaker Lead into Right Atrium, Percutaneous Approach (ICD-10-PCS; 2024-10-02)
PROC: 02HK3JZ Insertion of Pacemaker Lead into Right Ventricle, Percutaneous Approach (ICD-10-PCS; 2024-10-02)
DX: I34.0 Nonrheumatic mitral (valve) insufficiency (principal); J95.1 Acute pulmonary insufficiency following thoracic surgery; D62 Acute posthemorrhagic anemia; I44.2 Atrioventricular block, complete; I47.10 Supraventricular tachycardia, unspecified; I47.19 Other supraventricular tachycardia; J98.11 Atelectasis; E87.1 Hypo-osmolality and hyponatremia; I25.10 Atherosclerotic heart disease of native coronary artery without angina pectoris; I48.0 Paroxysmal atrial fibrillation; I67.1 Cerebral aneurysm, nonruptured; I34.1 Nonrheumatic mitral (valve) prolapse; I34.81 Nonrheumatic mitral (valve) annulus calcification; D69.59 Other secondary thrombocytopenia; E86.1 Hypovolemia; E87.70 Fluid overload, unspecified; Y83.8 Other surgical procedures as the cause of abnormal reaction of the patient, or of later complication, without mention of misadventure at the time of the procedure; Z86.718 Personal history of other venous thrombosis and embolism; Z87.891 Personal history of nicotine dependence; Z79.01 Long term (current) use of anticoagulants; Z79.82 Long term (current) use of aspirin; Z79.02 Long term (current) use of antithrombotics/antiplatelets
CPT/HCPCS: 93308; 33208; 33225; 36415; 71045; 71046; 80048; 80053; 81003; 82248; 82330; 82565; 82805; 82810; 82947; 82962; 83036; 83735; 84132; 84302; 84520; 85014; 85018; 85025; 85027; 85049; 85610; 85730; 86803; 86850; 86900; 86901; 86920; 87070; 93005; 93312; 93320; 93321; 93325; 93880; 94002; C1769; C1887; C1892; C1898; C1900; C2621; J2916; P9045; Q9967

== ENCOUNTER 2024-11-01 17:38 | Observation (INO) | payer MEDICARE, SELFPAY ==
[2024-11-01] VITALS (13 sets, daily range): BP systolic 116–150; BP diastolic 77–94; BMI 24.9
[2024-11-01 12:39] LABS: % Basophils 0.5 % (0-2); % Immature Granulocytes 0.2 % (0-0.5); % Lymphocytes 20.4 % (20.5-51.1); % Monocytes 9.3 % (1.7-9.3); % Neutrophils 63.6 % (42.2-75.2); Absolute Eosinophils 0.5 10^3/uL (0-0.7); Absolute Lymphocytes 1.6 10^3/uL (1.2-3.4); Absolute Monocytes 0.8 10^3/uL (0.1-0.6); Absolute Neutrophils 5.1 10^3/uL (1.4-6.5); Hemoglobin 11.6 g/dL (13.0-18.0); Mean Corp Hgb Conc. 33.1 g/dL (33.0-37.0); Mean Corpuscular Hgb 31.6 pg (27.0-31.0); Mean Corpuscular Volume 95.4 fL (80.0-94.0); Mean Platelet Volume 9.4 fL (7.4-10.4); Nucleated Red Blood Cells % 0 % (-); Platelet Count 200 10^3/uL (130-400); Red Blood Cell Count 3.67 10^6/uL (4.70-6.10); Red Cell Dist. Width 13.4 % (11.5-14.5)
[2024-11-01 12:45] LABS: ALT (SGPT) 15 U/L (0-50); AST (SGOT) 19 U/L (17-59); Albumin 4.1 g/dl (3.5-5.0); Alkaline Phosphatase 124 U/L (38-126); Blood Urea Nitrogen 14 mg/dl (9-20); Calcium 8.9 mg/dl (8.4-10.2); Carbon Dioxide 26 mmol/L (22-30); Chloride 103 mmol/L (98-107); Glucose 89 mg/dl (70-99); INR 1.21; PT 15.6 Sec (11.4-14.6); Potassium 4.1 mmol/L (3.5-5.1); Sodium 135 mmol/L (135-145); Total Bilirubin 0.8 mg/dl (0.2-1.3); Total Protein 7.5 g/dl (6.3-8.2); eGFR > 60.00
[2024-11-01 12:46] LABS: APTT 34.6 Sec (23.4-35.0)
[2024-11-01 12:57] LABS: NT-proBNP 1100 pg/ml; Troponin I 0.015 ng/ml
--- NOTE | 2024-11-01 13:30 | ED.GENMED ---
History of Present Illness
General
Chief Complaint: Cardiac Symptoms
Source: patient
Exam Limitations: none
Time Seen by Provider: 11/01/24 12:30
Nursing documentation reviewed up to this point in time: agreed with
History of Present Illness
History of Present Illness:
79 yo M
09/29 had MVr ring, CABG x 2 (KWOK-LAD, SVG-OM)
post op course complicated by comp heart block requiring pacer
post op blood loss (hg down to 8)
here with increasing fatigue, CROCKETT x 1 week with elevated resting HR > 100s sometimes
had appt post op with dr. gibson's SHOE TRIMMER rajeev about 2 weeks ago and was bumped up form metop succ 25 mg to 50 mg but he has felt worse
he was doing well walking several blocks but now the past 2 days hastn' really wanted to do anythign becuase he doesn't have energy
he is gettin alerts that his HRs are > 100 at times; he has not had the ability to interrogate his device, because the machine was just delievered today
pt has not had any icnreasing leg sewlling, pleuritic pain
he is compliant with eliquis and has h/o provoked DVT
no cough, fever, chills, abd pain, nausea, vomiting
Past History
Past History
ED Past Medical History: Arrthythmia (SVT) and Other (Small cerebral aneurysm they are watching)
ED Past Surgical History: Orthopedic (L knee replacement) and Other (Nasal )
Social History
Tobacco: Former smoker
Alcohol: Occasional
Drug: None
Personal:
Living: with family
Employment: Retired
Family History
Family History: Other ([id number])
Phy Exam
Physical Exam
Physical Exam:
GENERAL: Alert , in no apparent distress, well appearing
EYE: pupils equal and reactive
NECK: Supple
ENT: o/p clr, mmm.
CARDIAC: Regular rate and rhythm . hr 90s
chest: healing sternotomy incision
LUNGS: Clear breath sounds bilaterally, no acute respiratory distress, no wheezes/rales/rhonchi
ABDOMEN: Soft, without focal tenderness, no r/g, no cvat, normal bowel sounds
NEUROLOGICAL: Alert and oriented, no focal neuro deficits
SKIN: Warm and dry, skin intact.
MUSCULOSKELETAL: No edema, well perfused. neg monika's sign
PSYCH: Normal and appropriate interaction.
Course
Orders/Labs/Results
Orders:
Orders
11/01/24 11:56
Electrocardiogram (*1) Urgent
Reason for Study: Chest Pain
EKG- Treatment ONCE
11/01/24 12:25
CMP [Comprehensive Metabolic Panel] Urgent
Complete Blood Count/With Diff Urgent
NT-proBNP Urgent
PT/INR [Prothrombin Time] Urgent
PTT Urgent
Troponin I Urgent
11/01/24 13:13
CR Chest - 2 Views Urgent
Comment:
Reason For Exam: tachycardia, sob; recent pacer/cabg
11/01/24 Dinner
Cholesterol Lowering
At Your Request: Full Participation
Cholesterol Lowering: Sodium, 2 Gram
11/01/24 17:19
Admit/Transfer Patient As Directed
Co-Sign Provider:
Level of Care: Observation services
Assign to:: IVU
Physician / Group: Jenn
Diagnosis: CROCKETT/CP
PRN Pain Medication Management As Directed
May give lesser potent ordered pain med per pt: Yes
preference::
Protocol:: Medication orders for pain may be administered in a
manner that supports deferring to patient preference
when the pt is:
- Requesting an ordered lesser potent pain medication.
Least to most potent pain medications are defined
as: acetaminophen < NSAID < tramadol < opioids
(morphine, oxycodone, hydromorphone).
- Requesting a lesser dose of the same medication IF
ORDERED.
- Requesting a less intrusive route of administration
if both routes are prescribed by the provider (PO <
IV).
11/01/24 17:20
Code Status As Directed
Resuscitation Status: Full Code
11/01/24 17:25
Furosemide [Lasix] 20 mg IV ONCE ONE
11/01/24 20:56
Electrocardiogram (*1) Q6H
Reason for Study: Chest Pain
Comment: at admission and Q3H for total of 3, to be done with each troponin
Apixaban [Eliquis] 5 mg PO BID
Atorvastatin [Lipitor] 40 mg PO QPM
Metoprolol Xl [Toprol Xl] 25 mg PO BID
11/01/24 20:56
CARDIOLOGY CONSULT Routine
Consulting Provider: Laci Aaron
Was physician already notified: Yes
Reason for consult: CROCKETT/CP
Activity As Directed
Activity Level: With Assistance
ECG as needed As Directed
ECG as needed for:: Chest Pain
Additional Instructions:: with chest pain x 2 episodes.
INT (Intravenous Needle Therapy) As Directed
Comment: maintain peripheral IV access
Intake/ Output As Directed
Frequency: Per unit guidelines
Vital Signs As Directed
Frequency: q4h
Weight As Directed
Frequency: Daily
11/01/24 21:21
Troponin I Q3H
Comment: at admit & Q3H for 3 total including ED draws, obtain ECG with each level
11/02/24 02:56
Electrocardiogram (*1) Q6H
Reason for Study: Chest Pain
Comment: at admission and Q3H for total of 3, to be done with each troponin
11/02/24 08:00
Ascorbic Acid [Vitamin C] 500 mg PO DAILY
Aspirin Chewable [Low Strength Aspirin] 81 mg PO DAILY
Cholecalciferol (Vitamin D3) [VITAMIN D3 (cholecalciferol)] 125 mcg PO DAILY
Lactobac/Bifidobac [Visbiome] 1 cap PO DAILY
Multivitamin [Theragran] 1 tablet PO DAILY
Pantoprazole [Protonix] 40 mg PO DAILY
Valsartan [Diovan] 40 mg PO DAILY
Abnormal Lab Results
11/01/24
12:25
RBC 3.67 L 10^6/uL
(4.70-6.10)
Hgb 11.6 L g/dL
(13.0-18.0)
Hct 35.0 L %
(39.0-52.0)
MCV 95.4 H fL
(80.0-94.0)
MCH 31.6 H pg
(27.0-31.0)
Absolute Monos (auto) 0.8 H 10^3/uL
(0.1-0.6)
Lymphocytes % 20.4 L %
(20.5-51.1)
PT 15.6 H Sec
(11.4-14.6)
11/01/24 12:25
11/01/24 12:25
Vital Signs
Initial and Last Documented VS:
Initial Vital Signs
Temp Pulse Resp BP Pulse Ox
36.8 C 98 16 138/79 100
11/01/24 12:01 11/01/24 12:01 11/01/24 12:01 11/01/24 12:01 11/01/24 12:01
Last Documented Vital Signs
Temp Pulse Resp BP Pulse Ox
36.6 C 93 20 135/88 100
11/02/24 11:22 11/02/24 11:17 11/02/24 11:22 11/02/24 11:17 11/02/24 11:22
MDM/Problems Addressed
Differential Diagnosis Includes:
acs, less likely PE, tachycardia, pleural effusion, pericardial effusion
MDM/Problems Addressed:
Gonsalo Fields
79 yo M
09/29 had MVr ring, CABG x 2 (KWOK-LAD, SVG-OM)
post op course complicated by comp heart block requiring pacer
here with increasing fatigue, CROCKETT x 1 week with elevated resting HR > 100s sometimes
had appt post op with dr. gibson's SHOE TRIMMER rajeev about 2 weeks ago and was bumped up form metop succ 25 mg to 50 mg but he has felt worse
afebrile; looks fatigued; normal bp 120-130/70s with hr 90s, paced with ectopy PVCs frequently
lungs are clear, no significant edema; on eliquis
wbc normal, hg up to 11 from 8 during surgery
bnp elevated 1100
trop 0.015
i've interrogated his pacer, no events, no AF
seen by CT surgery and thought to be cleared from them but will follow
seen by dr. aaron who recommended OBS for trops r/o
did bedside echo - no pericardial effuison
and could recommend doing metop succ 25 mg bid rather than 50 daily du eto elevated HR
*Critical Care Note
Total Time (30-74mins, 75-104mins- exclusive of procedures): Not Applicable
ED Attending Note
-
Portions of this chart may have been created with voice recognition software.� Occasional wrong word or��sound alike� substitutions may have occurred due to the inherent limitations of voice recognition software.
Discharge Plan
Departure
Patient Disposition: Admit
Date of Disposition: 11/01/24
Time of Disposition: 16:44
Admit to: Telemetry
Presentation/result/management discussed w/ accepting MD/DO: Hospitalist
Condition: Fair
Covid-19: Not Applicable
Discharge Problem:
Chest pain, Tachycardia
Interventions
Interventions:
*Risk Screen - Suicide Last Done: 11/01/24 12:12
*General Assessment Last Done: 11/01/24 12:12
*Neglect/Abuse Screening Last Done: 11/01/24 12:12
*ED- Fall Risk Assessment Last Done: 11/01/24 12:12
*ED COVID-19 Vaccine History Last Done: 11/01/24 12:12
*Nursing Disposition Last Done: 11/01/24 20:44
ED- Cardiac Assessment Last Done: 11/01/24 19:15
ED- Pulmonary Assessment Last Done: 11/01/24 19:15
Discharge Date and Time
Discharge Date/Time: 11/01/24 21:06
--- NOTE | 2024-11-01 14:05 | CONSULT.CT ---
Consultation
-
Date/Time Consultation Requested: 11/01/24
Date/Time Consultation Performed: 11/01/24
Requesting Provider: Lakeisha Clark
Performing Provider: Regina JAUREGUI for Samuel Hernandez MD
Reason for Consultation: rapid heart rate, dyspnea POD #28 from mitral repair, MAZE, clip, CABG
Patient History
Physicians
Family Physician: Shaggy Mejia
Outpatient Ticket Collector Or Usher: Desmond Saha
History of Present Illness
79-year old male known to CT service from recent elective mitral valve repair, CABG x 2 (KWOK-LAD, SVG-OM), LAZARUS #35mm Clip, and MAZE due to mitral valve prolapse. Surgery was performed on 09/29/[address] Rigoberto Carlisle. Post-procedure SKIP: EF (60-65%),
trace MR. Post op course was complicated by post-operative complete heart block requiring Medtronic Bi-V PPM placement on 10/02/24 (Dr. Lexus Cordova). Routine pre-discharge TTE (10/02/24): EF of 50-55%, MV gradient 12/4mmHg, trace MR, and mild AI.
Eliquis, Amiodarone and Beta-boston were restarted. Patient was noted to have no further atrial arrhythmias and Amiodarone was discontinued upon discharge. Patient saw CT [facility] on 10/27/24 and Toprol XL dose was increased to 50mg daily for
periods of elevated heart rate. Patient endorses experiencing chest tightness when heart rate is higher. Denies chest tightness at other times. Today, patient felt more short of breath, fatigue and palpitations. Therefore, he came to the emergency
room. Troponin I 0.015, BNP 1100, CBC and lytes WNL.
Past Medical History
Past Medical History: Atrial Fib (PAF-on Eliquis; post-op CHB), CAD, HTN and Other (DJD, cerebral aneurysm)
Past Surgical History
Past Surgical History: CABG (CABG x 2 KWOK-LAD; SVG-OM, Mitral repair #34 ring, MAZE, Left atrial appendage #35mm clip (09/29/24); MDT Bi-V PPM-settings DDDR 60-130 (10/02/24))
Family History
Mother: N/A
Father: N/A
Social History
Alcohol: Occasional
Drug: None
Tobacco: Non-Smoker (quit 1973)
Personal:
Living: With Spouse
Employment: Retired
Allergies
Allergy/AdvReac Type Severity Reaction Status Date / Time
adhesive tape Allergy Rash Verified 11/01/24 12:05
morphine Allergy 'it just Verified 11/01/24 12:05
doesn't
work'
naproxen Allergy diarrhea Verified 11/01/24 12:05
Sulfa (Sulfonamide Allergy Jesus-Kyle Verified 11/01/24 12:05
Antibiotics) Syndrone
Home Medications
�Medication �Instructions �Recorded �Confirmed �Type
Lactobacillus acidophilus 10 10,000 mmu cells PO DAILY 10/04/23 09/29/24 History
billion cell capsule (Probiotic) Supplement
ascorbic acid (vitamin C) 500 mg 500 mg PO DAILY Supplement 10/04/23 09/29/24 History
tablet
cholecalciferol (vitamin D3) 125 125 mcg PO DAILY Supplement 10/04/23 09/29/24 History
mcg (5,000 unit) tablet
multivitamin 1 tab PO DAILY Supplement 10/04/23 09/29/24 History
apixaban 5 mg tablet (Eliquis) 5 mg PO BID Blood Clot 09/29/24 09/29/24 History
Prevention/Tx
acetaminophen 325 mg tablet 650 mg (2 x 325 mg) PO Q4HPRN PRN 10/03/24 Rx
mild pain,headache,temp >101F #0
tabs
aspirin 81 mg chewable tablet 81 mg PO DAILY Blood clot 10/03/24 Rx
prevention/tx #0 tabs
atorvastatin 40 mg tablet 40 mg PO QPM High cholesterol 30 10/04/24 Rx
days #30 tabs
cyclobenzaprine 10 mg tablet 5 mg (1/2 x 10 mg) PO Q8HPRN PRN 10/04/24 Rx
muscle spasm #10 tabs
furosemide 20 mg tablet (Lasix) 20 mg PO DAILY Fluid 10/04/24 Rx
retention/Swelling #20 tabs
gabapentin 100 mg capsule 100 mg PO TID post-op nerve pain 10/04/24 Rx
10 days #30 caps
metoprolol succinate 25 mg 25 mg PO DAILY Heart 10/04/24 Rx
tablet,extended release 24 hr disease/condition #30 tabs
(Toprol XL)
oxycodone 5 mg tablet 5 mg PO Q4HPRN PRN severe pain #10 10/04/24 Rx
tabs
pantoprazole 40 mg tablet,delayed 40 mg PO DAILY GI prophylaxis 10/04/24 Rx
release while on anticoagulation #30 tabs
valsartan 40 mg tablet 40 mg PO DAILY Blood pressure #30 10/04/24 Rx
tabs
Review of Systems
-
History Source: Patient
General: Reports Fatigue
HEENT: Reports No Symptoms
Respiratory: Reports SOB
Cardiac: Reports Chest Pain
Abdomen/GI: Reports No Symptoms
: Reports No Symptoms
Musculoskeletal: Reports No Symptoms
Skin: Reports No Symptoms
Neurological: Reports No Symptoms
Vascular: Reports No Symptoms
Physical Exam
Vital Signs
Temp 98.2 F 11/01/24 12:01
Temp route: Oral 11/01/24 12:01
Pulse 88 11/01/24 13:15
Resp Rate 22 11/01/24 13:15
Blood pressure 147/92 11/01/24 13:37
MAP (cuff-Stacy Monitor) 111 11/01/24 13:37
SaO2 99 11/01/24 13:37
Oxygen Mode of Delivery Room air 11/01/24 12:01
Body Mass Index (BMI) 0.0 11/01/24 12:12
Labs
11/01/24 12:25
11/01/24 12:
PT 15.6 Sec (11.4-14.6) H 11/01/24 12:25
APTT 34.6 Sec (23.4-35.0) 11/01/24 12:25
Troponin I 0.015 ng/ml 11/01/24 12:25
Saf-X-Apipgdwhpas Pept 1100 pg/ml 11/01/24 12:25
Exam
General: Well Developed and Well Nourished
HEENT: Normocephalic, Anicteric, Moist Mucous Membranes and PERRLA
Neck: Trachea Midline
Respiratory: Clear
Cardiac: S1/S2, Regular Rhythm and Other (median sternotomy well healed)
GI: Soft, Non Tender, Non Distended and Normal Bowel Sounds
Rectal: Deferred by Provider
Skin: Warm and Dry
Neuro: AO x 3, No Motor Deficits and Nonfocal/Grossly Intact
Extremities: Lower Level Edema (trace B/L tibial edema)
Lymph: No Lymphadenopathy
Psych: Calm
Assessment / Plan
-
79 year old male presents with fatigue, shortness of breath and palpitations/elevated heart rate associated with chest tightness.
Patient is s/p mitral repair, MAZE, left atrial appendage clip (09/29) and MDT Bi-V PPM implant (10/02)
Sinus with V-pacing at 90 on ECG
CXR/labs WNL
Case d/w Dr Hernandez>await pacer interrogation report
Medication dosing adjustment per cardiology. Healing well from surgical perspective
Data Reviewed
-
EKG: Report Reviewed by me and Discussed with Physician
Radiology: Report Reviewed by me and Discussed with Physician
Labs: Labs Reviewed by me and Discussed with Physician
--- NOTE | 2024-11-01 15:23 | CON.CAR ---
Consultation
Consultation Request
Date/Time Consultation Requested: 11/01/2024 1500
Date/Time Consultation Performed: 11/01/2024 1530
Requesting Provider: Lorna JAUREGUI
Performing Provider: Dr. Asif
Reason for Consultation: Tachycardia
Medical History
-
History of Present Illness:
79-year-old male with past medical history below who recently underwent mitral valve repair and coronary artery bypass grafting 09/29/2024 during that hospitalization he had a biventricular pacemaker implanted for complete heart block. Patient
reports that he was doing relatively well but feels like he has had some increased shortness of breath with exertion and fatigue over the past week denies orthopnea or increased lower extremity edema he also feels like his heart is beating faster
his watch will alarm when his heart rate goes over 100 and his heart rates been going over 100. He said once the feeling of the rapid heartbeat will last it will persist and can last for a number of hours he has also had some associated chest
tightness with this although it is not clear that the chest tightness last the full duration that the elevated heart rate does. He had some elevation in his heart rate this morning and some associated chest tightness[place]ve all the way to [facility]. Symptoms lasted for a couple hours before arriving in the ER. Currently chest pain-free he is in sinus rhythm and atrial sensed and ventricular paced at the bedside and is not feeling the pacing. Chest
x-rays has small bilateral effusions which are less than his last chest x-ray.
A limited bedside echo was performed. This was particularly to evaluate for pericardial effusion and patient who had recent pacemaker implantation. Technically difficult study. No pericardial effusion estimated ejection fraction 50%. Mitral
valve repair with trace mitral regurgitation.
[facility] device check suggest that device is functioning appropriately. No ventricular arrhythmias or no A-fib or other atrial arrhythmias detected. AT/AF detection rate 170 device otherwise appears to be functioning appropriately
It seems that he mainly notices the heartbeat issues at night he thinks he is better during the day after he takes his metoprolol recently his metoprolol had been increased
.
Past medical history
-Mitral valve repair #34mm ring, bio pericardial patch, MAZE, CABG x 2 (KWOK - LAD, SVG - OM), ELAA (35mm) on (09/29/24)
-Medtronic BiV PPM (10/02/24) for complete heart block
-PAF
-History of DVTs, provoked/trauma
-Cerebral aneurysm
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
-VT ablation. VT/PVCs successfully ablated September 2023
-Mitral valve prolapse and mitral regurgitation prompting mitral valve repair
-Cholelithiasis
-Bilateral knee replacement
-Appendectomy
Discharge medications from 09/29/2024
Tylenol 650 every 4 hours as needed, aspirin 81 mg a day cyclobenzaprine 10 mg tablet 5 mg p.o. every 8 hours as needed valsartan 40 mg a day atorvastatin 40 mg a day, metoprolol succinate 25 mg a day pantoprazole 40 mg a day gabapentin 100 mg 3
times daily oxycodone 5 mg every 4 hours as needed Lasix 20 mg a day, vitamin D 125 mcg / 5000 units daily Eliquis 5 mg twice daily ascorbic acid 500 mg a day probiotic
Past Medical History
Past Medical History: Other (As noted above)
Social History
Tobacco: Non-Smoker
Family History
Family History: Other (Negative for premature CAD)
Allergies / Home Medications
Allergy/AdvReac Type Severity Reaction Status Date / Time
adhesive tape Allergy Rash Verified 11/01/24 12:05
morphine Allergy 'it just Verified 11/01/24 12:05
doesn't
work'
naproxen Allergy diarrhea Verified 11/01/24 12:05
Sulfa (Sulfonamide Allergy Tania Verified 11/01/24 12:05
Antibiotics) Syndrone
�Medication �Instructions �Recorded �Confirmed �Type
Lactobacillus acidophilus 10 10,000 mmu cells PO DAILY 10/04/23 09/29/24 History
billion cell capsule (Probiotic) Supplement
ascorbic acid (vitamin C) 500 mg 500 mg PO DAILY Supplement 10/04/23 09/29/24 History
tablet
cholecalciferol (vitamin D3) 125 125 mcg PO DAILY Supplement 10/04/23 09/29/24 History
mcg (5,000 unit) tablet
multivitamin 1 tab PO DAILY Supplement 10/04/23 09/29/24 History
apixaban 5 mg tablet (Eliquis) 5 mg PO BID Blood Clot 09/29/24 09/29/24 History
Prevention/Tx
acetaminophen 325 mg tablet 650 mg (2 x 325 mg) PO Q4HPRN PRN 10/03/24 Rx
mild pain,headache,temp >101F #0
tabs
aspirin 81 mg chewable tablet 81 mg PO DAILY Blood clot 10/03/24 Rx
prevention/tx #0 tabs
atorvastatin 40 mg tablet 40 mg PO QPM High cholesterol 30 10/04/24 Rx
days #30 tabs
cyclobenzaprine 10 mg tablet 5 mg (1/2 x 10 mg) PO Q8HPRN PRN 10/04/24 Rx
muscle spasm #10 tabs
furosemide 20 mg tablet (Lasix) 20 mg PO DAILY Fluid 10/04/24 Rx
retention/Swelling #20 tabs
gabapentin 100 mg capsule 100 mg PO TID post-op nerve pain 10/04/24 Rx
10 days #30 caps
metoprolol succinate 25 mg 25 mg PO DAILY Heart 10/04/24 Rx
tablet,extended release 24 hr disease/condition #30 tabs
(Toprol XL)
oxycodone 5 mg tablet 5 mg PO Q4HPRN PRN severe pain #10 10/04/24 Rx
tabs
pantoprazole 40 mg tablet,delayed 40 mg PO DAILY GI prophylaxis 10/04/24 Rx
release while on anticoagulation #30 tabs
valsartan 40 mg tablet 40 mg PO DAILY Blood pressure #30 10/04/24 Rx
tabs
Review of Systems
-
All other systems: Negative unless noted
Physical Exam
Vital Signs
Temp Pulse Resp BP Pulse Ox
98.2 F 86 19 121/77 100
11/01/24 12:01 11/01/24 14:30 11/01/24 14:30 11/01/24 14:00 11/01/24 14:30
Lab Results
11/01/24 12:25
11/01/24 12:25
Troponin I 0.015 ng/ml 11/01/24 12:25
Jxr-F-Huaidtgdill Pept 1100 pg/ml 11/01/24 12:25
Physical Exam
General: Well Developed
HEENT: Normocephalic and Anicteric
Respiratory: Other (No wheezes rales or rhonchi)
Cardiac: Regular Rhythm and Other (Midsternal incision appears well-healed. No murmurs rubs or gallops)
GI: Soft, Non Tender, Non Distended and Normal Bowel Sounds
Musculoskeletal: No Clubbing, No Cyanosis and Other (Mild fullness of the lower extremities without clear edema)
Skin: Warm and Dry
Neuro: Awake and Alert
Psych: Calm and Other (Cooperative)
Impression / Plan
-
79-year-old male with past medical history below who recently underwent mitral valve repair and coronary artery bypass grafting 09/29/2024 during that hospitalization he had a biventricular pacemaker implanted for complete heart block. Patient
reports that he was doing relatively well but feels like he has had some increased shortness of breath with exertion and fatigue over the past week denies orthopnea or increased lower extremity edema he also feels like his heart is beating faster
his watch will alarm when his heart rate goes over 100 and his heart rates been going over 100. He said once the feeling of the rapid heartbeat will last it will persist and can last for a number of hours he has also had some associated chest
tightness with this although it is not clear that the chest tightness last the full duration that the elevated heart rate does. He had some elevation in his heart rate this morning and some associated chest tightness. [place]
drove all the way to [facility]. Symptoms lasted for a couple hours before arriving in the ER. Currently chest pain-free he is in sinus rhythm and atrial sensed and ventricular paced at the bedside and is not feeling the pacing. Chest
x-rays has small bilateral effusions which are less than his last chest x-ray.
A limited bedside echo was performed. This was particularly to evaluate for pericardial effusion and patient who had recent pacemaker implantation. Technically difficult study. No pericardial effusion estimated ejection fraction 50%. Mitral
valve repair with trace mitral regurgitation.
[facility] device check suggest that device is functioning appropriately. No ventricular arrhythmias or no A-fib or other atrial arrhythmias detected. AT/AF detection rate 170 device otherwise appears to be functioning appropriately
It seems that he mainly notices the heartbeat issues at night he thinks he is better during the day after he takes his metoprolol recently his metoprolol had been increased
.
Past medical history
-Mitral valve repair #34mm ring, bio pericardial patch, MAZE, CABG x 2 (KWOK - LAD, SVG - OM), ELAA (35mm) on (09/29/24)
-Medtronic BiV PPM (10/02/24) for complete heart block
-PAF
-History of DVTs, provoked/trauma
-Cerebral aneurysm
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
-VT ablation. VT/PVCs successfully ablated September 2023
-Mitral valve prolapse and mitral regurgitation prompting mitral valve repair
-Cholelithiasis
-Bilateral knee replacement
-Appendectomy
Patient's had a reduction in his endurance over the last week. Also feels like his heart is beating faster at times but the rates he describes are not very fast and no significant arrhythmias have been detected on telemetry in the emergency
department by his device check today. Chest x-ray has small effusions but there decreased from the previous chest x-ray and may just be residual from recent MV repair and CABG. No clear evidence that the patient is having symptoms related to
pacing or diaphragmatic stimulation. Patient was ventricular pacing during my assessment and appeared to be asymptomatic with it. Limited bedside echo with estimated EF 50% no pericardial effusion and mitral valve with just trace mitral
regurgitation.
At this point the cause of his symptoms are unclear but with continued issues with intermittent chest discomfort as well as the report of decreased endurance I would recommend additional observation.
- Monitor on telemetry. Will try to correlate rhythm and symptoms if his symptoms develop again
- Check serial troponins
-Change timing of beta-boston to Toprol 25 twice daily
- Will give a single dose of Lasix to see if it impacts his symptoms
- Can have EP further assess device if he is feeling a diaphragmatic stimulation contributing to symptoms
- Although patient had limited bedside echo would arrange for full echocardiogram
Data Reviewed
-
EKG: Report Reviewed by me
Radiology: Report Reviewed by me
Medical Tests (Nuc Med, Echo etc): Report Reviewed by me
Labs: Labs Reviewed by me
Old Records: Reviewed (Reviewed records from previous hospitalization also reviewed previous outpatient records from Dr. Saha)
--- NOTE | 2024-11-01 16:51 | HPS.HSE ---
Family Physician
-
Family Physician: Shaggy Mejia
Chief Complaint
-
Dyspnea on exertion and chest tightness
History of Present Illness
79 y/o M with PMHx:
CAD s/p MVR #34mm ring, bio pericardial patch, MAZE, CABG x 2 (KWOK - LAD, SVG - OM), ELAA (35mm) on (09/29/24), MDT BiV PPM (10/02/24)
PAF
Essential HTN
HLD
h/o DVT's (provoked s/p trauma)
h/o cerebral aneurysm
h/o SVT
Degenerative disc disease
Who presents with chief complaints of shortness of breath/dyspnea on exertion and chest tightness. Patient has had the symptoms for the past week. He denies any syncope, lightheadedness, headache, neck stiffness, orthopnea, paroxysmal nocturnal
dyspnea,, nausea, vomiting, diarrhea, abdominal pain, rash, dysuria, focal neurological deficit. He does not have shortness of breath or chest tightness at rest. He was seen in follow-up by CT surgery 5 days ago. His Toprol-XL was increased from
25 mg to 50 mg daily. This had no effect on his symptoms.
Medical History
Past Medical History
Past Medical History: Reports Other (as per HPI)
Past Surgical History: Reports Other (as per HPI)
Social History
Tobacco: Non-smoker
Alcohol: None
Drug: None
Family History
Family History: Not pertinent
Allergies / Home Medications
Allergies reflects when Allergies were last updated in [employer].
Home Medications with original date entered in [employer]
Allergy/Medication List:
Allergies
Allergy/AdvReac Type Severity Reaction Status Date / Time
adhesive tape Allergy Rash Verified 11/01/24 12:05
morphine Allergy 'it just Verified 11/01/24 12:05
doesn't
work'
naproxen Allergy diarrhea Verified 11/01/24 12:05
Sulfa (Sulfonamide Allergy Jesus-Kyle Verified 11/01/24 12:05
Antibiotics) Syndrone
Home Medications
Lactobacillus acidophilus 10 billion cell capsule (Probiotic) 10,000 mmu cells PO DAILY Supplement 10/04/23
ascorbic acid (vitamin C) 500 mg tablet 500 mg PO DAILY Supplement 10/04/23
cholecalciferol (vitamin D3) 125 mcg (5,000 unit) tablet 125 mcg PO DAILY Supplement 10/04/23
multivitamin 1 tab PO DAILY Supplement 10/04/23
apixaban 5 mg tablet (Eliquis) 5 mg PO BID Blood Clot Prevention/Tx 09/29/24
aspirin 81 mg chewable tablet 81 mg PO DAILY Blood clot prevention/tx #0 tabs 10/03/24
atorvastatin 40 mg tablet 40 mg PO QPM High cholesterol 30 days #30 tabs 10/04/24
pantoprazole 40 mg tablet,delayed release 40 mg PO DAILY GI prophylaxis while on anticoagulation #30 tabs 10/04/24
valsartan 40 mg tablet 40 mg PO DAILY Blood pressure #30 tabs 10/04/24
metoprolol succinate 25 mg tablet,extended release 24 hr (Toprol XL) 50 mg PO DAILY Heart disease/condition 11/01/24
Review of Systems
-
History Source: Patient
A 12 point ROS was completed and negative except as noted: Yes
Physical Exam
Vital Signs
Vital Signs
Temp Pulse Resp BP Pulse Ox
98.2 F 88 13 131/89 100
11/01/24 12:01 11/01/24 16:00 11/01/24 16:00 11/01/24 16:00 11/01/24 16:00
Physical Exam
General: Other (.)
Laboratory Results
-
11/01/24 12:25
11/01/24 12:25
Laboratory Results
PT 15.6 Sec (11.4-14.6) H 11/01/24 12:25
INR 1.21 11/01/24 12:25
APTT 34.6 Sec (23.4-35.0) 11/01/24 12:25
Total Bilirubin 0.8 mg/dl (0.2-1.3) 11/01/24 12:25
AST 19 U/L (17-59) 11/01/24 12:25
ALT 15 U/L (0-50) 11/01/24 12:25
Alkaline Phosphatase 124 U/L (38-126) 11/01/24 12:25
Troponin I 0.015 ng/ml 11/01/24 12:25
Impression/Plan
-
Gen: NAD, AAOx3.
Eyes: EOMI, PERRLA, no scleral icterus.
Neck: supple.
CV: RRR, +S1/S2, no m/r/g.
Resp: CTAB, no rales, wheezes, or rhonchi.
Abd: +BS, soft, NT, ND
Skin: No rashes.
Neuro: CN 2-12 intact, non-focal.
Psych: Normal mood and affect.
CXR: Small bilateral pleural effusions, slightly decreased from most recent radiograph. There is also been interval improvement in bilateral lower lung atelectasis.
Exertional dyspnea and chest pain:
-ECG (read by me): SR @ 99 with freq V-paced complexes and PVCs, L-axis, QTc 515ms, no acute ST/TW changes
-trop 0.015, proBNP 1100
-CXR above and improved from prior
-bedside echo NEG for pericardial effusion
-PPM interrogated, no acute events
-seen by cards, recommending OBS for change of BB from 50mg daily to 25mg BID and trending trop
CAD s/p CABG 09/29/24:
-MVR #34mm ring, bio pericardial patch, MAZE, CABG x 2 (KWOK - LAD, SVG - OM), ELAA (35mm) on (09/29/24), MDT BiV PPM (10/02/24)
-complicated by complete heart block requiring PPM as above
-CT surgery will follow
-cont ASA/statin
PAF:
-s/p MAZE
-changing dosing of BB as above
-cont Eliquis
Essential HTN:
-cont ARB
-changing dosing of BB as above
Other problems:
HLD: cont statin
h/o DVT's (provoked s/p trauma)
h/o cerebral aneurysm
h/o SVT: changing dosing of BB as above
Degenerative disc disease
FULL/Eliquis
[2024-11-01] MEDS: LASIX 20 MG IV (17:44)
[2024-11-01] MEDS: ELIQUIS 5 MG PO (21:28)
[2024-11-01] MEDS: TOPROL XL 25 MG PO (21:28)
[2024-11-01] MEDS: LIPITOR 40 MG PO (21:28)
[2024-11-01 22:02] LABS: Troponin I < 0.012 ng/ml
--- NOTE | 2024-11-01 23:18 | PTCARENOTE ---
Addendum entered by Cathi Mccray RN 11/02/24 00:19:
Tele = 100% Vpaced/BBC
Original Note:
Pt received from ED via stretcher. Ambulated to bed inpendently. AAOx3, pleasant, [id number] (hearing aids sent home w/spouse) Oriented to surroundings and plan of care discussed. Admission and assessment completed (refer to worklist). EKG and trop
completed as ordered. Contacted FOREIGN EXCHANGE CLERK covering to change serial trops to Q6H instead of Q3H, instructed ok to change, order changed electronically. #20 RW INT patent. Offers no complaints at this time. Call rodney w/in reach.
[2024-11-02 03:49] VITALS: BP 125/81
[2024-11-02 04:27] LABS: Hematocrit 36.1 % (39.0-52.0); Mean Corp Hgb Conc. 33.2 g/dL (33.0-37.0); Mean Corpuscular Hgb 31.3 pg (27.0-31.0); Mean Corpuscular Volume 94.3 fL (80.0-94.0); Platelet Count 205 10^3/uL (130-400); Red Blood Cell Count 3.83 10^6/uL (4.70-6.10); Red Cell Dist. Width 13.4 % (11.5-14.5); White Blood Cell Count 7.8 10^3/uL (4.8-10.8)
[2024-11-02 04:53] LABS: Blood Urea Nitrogen 12 mg/dl (9-20); Calcium 9.3 mg/dl (8.4-10.2); Carbon Dioxide 26 mmol/L (22-30); Chloride 104 mmol/L (98-107); Estimated Creatinine Clearance 95 ml/min; Glucose 92 mg/dl (70-99); Magnesium 1.9 mg/dl (1.6-2.3); Potassium 4.3 mmol/L (3.5-5.1); Sodium 136 mmol/L (135-145); eGFR > 60.00
[2024-11-02 05:04] LABS: Troponin I < 0.012 ng/ml
[2024-11-02 06:00] VITALS: BMI 24.5
[2024-11-02 06:59] VITALS: BP 119/82
[2024-11-02] MEDS: VISBIOME 1 CAP PO (08:11)
[2024-11-02] MEDS: THERAGRAN 1 TABLET PO (08:11)
[2024-11-02] MEDS: VITAMIN C 500 MG PO (08:11)
[2024-11-02] MEDS: ELIQUIS 5 MG PO (08:11)
[2024-11-02] MEDS: TOPROL XL 25 MG PO (08:11)
[2024-11-02] MEDS: PROTONIX 40 MG PO (08:11)
[2024-11-02] MEDS: VITAMIN D3 (cholecalciferol) 125 MCG PO (08:11)
[2024-11-02] MEDS: LOW STRENGTH ASPIRIN 81 MG PO (08:11)
[2024-11-02] MEDS: DIOVAN 40 MG PO (08:11)
--- NOTE | 2024-11-02 08:25 | W.PN.CD ---
Today's Communication / Plan
-
Stable for discharge from cardiac standpoint.
Impression / Plan
-
79-year-old male with past medical history below who recently underwent mitral valve repair and coronary artery bypass grafting 09/29/2024 during that hospitalization he had a biventricular pacemaker implanted for complete heart block. Patient
reports that he was doing relatively well but feels like he has had some increased shortness of breath with exertion and fatigue over the past week denies orthopnea or increased lower extremity edema he also feels like his heart is beating faster
his watch will alarm when his heart rate goes over 100 and his heart rates been going over 100. He said once the feeling of the rapid heartbeat will last it will persist and can last for a number of hours he has also had some associated chest
tightness with this although it is not clear that the chest tightness last the full duration that the elevated heart rate does. He had some elevation in his heart rate this morning and some associated chest tightness. [place] [facility] [place]ve all the way to [facility]. Symptoms lasted for a couple hours before arriving in the ER. Currently chest pain-free he is in sinus rhythm and atrial sensed and ventricular paced at the bedside and is not feeling the pacing. Chest
x-rays has small bilateral effusions which are less than his last chest x-ray.
A limited bedside echo was performed. This was particularly to evaluate for pericardial effusion and patient who had recent pacemaker implantation. Technically difficult study. No pericardial effusion estimated ejection fraction 50%. Mitral
valve repair with trace mitral regurgitation.
[facility] device check suggest that device is functioning appropriately. No ventricular arrhythmias or no A-fib or other atrial arrhythmias detected. AT/AF detection rate 170 device otherwise appears to be functioning appropriately
It seems that he mainly notices the heartbeat issues at night he thinks he is better during the day after he takes his metoprolol recently his metoprolol had been increased
.
Past medical history
-Mitral valve repair #34mm ring, bio pericardial patch, MAZE, CABG x 2 (KWOK - LAD, SVG - OM), ELAA (35mm) on (09/29/24)
-Medtronic BiV PPM (10/02/24) for complete heart block
-PAF
-History of DVTs, provoked/trauma
-Cerebral aneurysm
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
-VT ablation. VT/PVCs successfully ablated September 2023
-Mitral valve prolapse and mitral regurgitation prompting mitral valve repair
-Cholelithiasis
-Bilateral knee replacement
-Appendectomy
Patient's had a reduction in his endurance over the last week. Also feels like his heart is beating faster at times but the rates he describes are not very fast and no significant arrhythmias have been detected on telemetry in the emergency
department by his device check today. Chest x-ray has small effusions but there decreased from the previous chest x-ray and may just be residual from recent MV repair and CABG. No clear evidence that the patient is having symptoms related to
pacing or diaphragmatic stimulation. Patient was ventricular pacing during my assessment and appeared to be asymptomatic with it. Limited bedside echo with estimated EF 50% no pericardial effusion and mitral valve with just trace mitral
regurgitation.
At this point the cause of his symptoms are unclear but with continued issues with intermittent chest discomfort as well as the report of decreased endurance I would recommend additional observation.
Telemetry shows no sign of abnormality. Patient is BiV paced.
Patient's pacemaker was interrogated. No sign of abnormality noted with normal looking rhythm strips.
Pacemaker was reprogrammed to improve the dyssynchrony.
Different settings were tested on the pacemaker without any phrenic capture.
Pacemaker was reprogrammed for improved BiV pacing.
Acute coronary syndrome was ruled out.
Patient stable to discharge from cardiac standpoint.
Physical Exam
Vital Signs/Labs
Vital Signs
Temp Pulse Resp BP Pulse Ox
97.9 F 92 20 119/82 96
11/02/24 07:00 11/02/24 08:11 11/02/24 07:00 11/02/24 08:11 11/02/24 07:00
11/01/24 11/02/24 11/03/24
06:59 06:59 06:59
Actual Weight 82 kg
11/02/24 04:01
11/02/24 04:01
PT 15.6 Sec (11.4-14.6) H 11/01/24 12:25
INR 1.21 11/01/24 12:25
APTT 34.6 Sec (23.4-35.0) 11/01/24 12:25
Magnesium 1.9 mg/dl (1.6-2.3) 11/02/24 04:01
11/01/24
12:25
Iwa-D-Vvffqsgjtoj Pept 1100
LAB Results
11/01/24 11/01/24 11/01/24
12:25 21:21 23:56
Troponin I 0.015 < 0.012 Cancelled
11/02/24
04:01
Troponin I < 0.012
Physical Exam
Constitutional: No acute distress and Comfortable
EENT: Anicteric and Moist mucous membranes
Cardiovascular: Rhythm & rate is regular, Pedal edema is absent and JVD pressure is normal
Respiratory: Respiratory effort normal, Lungs clear to auscul. and Wheeze Absent
GI: Soft, Distention absent and Non tender
Neuro/Psych: Alert, Oriented and AO x 3
Other: Skin, Cath Site and Cardiac Device Site
Data Reviewed
-
Date of Service: November 02, 2024
Medical Decision Making: Reviewed Test Results, Test Interpretation and Review of Case with other Provider
EKG: Tracing Personally Visualized and interpreted
Echo: Report Reviewed by me
X-Ray/CT/US/MRI/NUC/PET: Image Personally Visualized and interpreted
Labs: Labs Reviewed by me
--- NOTE | 2024-11-02 09:11 | PTCARENOTE ---
Pt is AOx3, no complaints of pain or discomfort. V-paced w/ BBB on tele monitor, VSS. Independent OOB. Call stevens within reach.
--- NOTE | 2024-11-02 10:33 | W.PN.HOSP.TC ---
Today's Communication/Plan
-
d/c
Assessment / Plan
Assessment / Plan
Gen: NAD, AAOx3.
Eyes: EOMI, PERRLA, no scleral icterus.
Neck: supple.
CV: remains RRR, +S1/S2, no m/r/g.
Resp: CTAB anteriorly, no rales, wheezes, or rhonchi.
Abd: remains +BS, soft, NT, ND
Skin: No rashes.
Neuro: CN 2-12 intact, non-focal.
Psych: Normal mood and affect.
CXR: Small bilateral pleural effusions, slightly decreased from most recent radiograph. There is also been interval improvement in bilateral lower lung atelectasis.
Exertional dyspnea and chest pain:
-ECG (read by me): SR @ 99 with freq V-paced complexes and PVCs, L-axis, QTc 515ms, no acute ST/TW changes
-trop NEG x 3, proBNP 1100
-CXR above and improved from prior
-bedside echo in ER NEG for pericardial effusion
-PPM interrogated, no acute events
-cards following
-s/p Lasix 20mg IV on 11/01/24
-Toprol XL changed to 25mg BID
CAD s/p CABG 09/29/24:
-MVR #34mm ring, bio pericardial patch, MAZE, CABG x 2 (KWOK - LAD, SVG - OM), ELAA (35mm) on (09/29/24), MDT BiV PPM (10/02/24)
-complicated by complete heart block requiring PPM as above
-CT surgery will follow
-cont ASA/statin
-cont BB
PAF:
-s/p MAZE
-changing dosing of BB as above
-cont Eliquis
Essential HTN:
-cont ARB
-Toprol XL changed to 25mg BID
Other problems:
HLD: cont statin
h/o DVT's (provoked s/p trauma)
h/o cerebral aneurysm
h/o SVT: Toprol XL changed to 25mg BID
Degenerative disc disease
FULL/Eliquis
Medically cleared for d/c pending repeat ECG as per discussion with Dr. Cordova.
Total time spent on d/c = 31 min. This included today's physical exam, progress note, review of laboratory and diagnostic data, preparation of discharge documents and prescriptions, and discussions about the pt's hospital course and discharge plan
with the patient and other medical technologist chemistry involved in the patient's care.
Anticipated Discharge: Today
Subjective/Interval History
-
Date of Service: November 02, 2024
Denies CP/SOB.
Objective Data
-
Labs:
Laboratory Results
11/02/24
04:01
WBC 7.8
Hgb 12.0 L
Hct 36.1 L
Plt Count 205
Sodium 136
Potassium 4.3
Chloride 104
Carbon Dioxide 26
BUN 12
Creatinine 0.7
Glucose 92
Calcium 9.3
Vital Signs:
Vital Signs
Temp Pulse Resp BP Pulse Ox
97.9 F 90 20 119/82 96
11/02/24 07:00 11/02/24 09:00 11/02/24 07:00 11/02/24 08:11 11/02/24 07:00
[2024-11-02 11:17] VITALS: BP 135/88
--- NOTE | 2024-11-02 12:11 | W.DCSUMMARY ---
Discharge Summary
Discharge Data
Date of Admission: 11/01/24
Date of Discharge: 11/02/24
-
Pending Results: No
Hospital Course
Primary diagnoses:
Dyspnea on exertion and chest tightness, likely noncardiac
Secondary diagnoses:
Coronary artery disease s/p MVR #34mm ring, bio pericardial patch, MAZE, CABG x 2 (KWOK - LAD, SVG - OM), ELAA (35mm) on (09/29/24), MDT BiV PPM (10/02/24)
Paroxysmal atrial fibrillation
Essential hypertension
Hyperlipidemia
h/o deep vein thromboses (provoked s/p trauma)
h/o cerebral aneurysm
h/o supraventricular tachycardia
Degenerative disc disease
Consultants:
Cardiology
CT surgery
Imaging:
CXR: Small bilateral pleural effusions, slightly decreased from most recent radiograph. There is also been interval improvement in bilateral lower lung atelectasis.
Hospital course: 79-year-old male presented yesterday with chief complaints of chest pain and dyspnea on exertion as outlined in the H&P done on admission. ECG (read by me): SR @ 99 with freq V-paced complexes and PVCs, L-axis, QTc 515ms, no acute
ST/TW changes. Troponin was negative x 3, proBNP 1100. CXR above and improved from prior. Bedside echo in ER was negative for pericardial effusion. PPM interrogated, no acute events. The patient received Lasix 20mg IV on 11/01/24. His Toprol XL
was changed to 25mg BID. His PPM was reprogrammed by Dr. Cordova. Patient's symptoms resolved and did not recur while hospitalized. He was discharged in medically stable condition.
Discharge Plan
-
Patient Disposition: Home (Routine Discharge)
Discharge Diagnosis/Procedures: Dyspnea on exertion and chest tightness, likely noncardiac
Condition: Good
Diet: Low Cholesterol and Low Sodium
Activity: No restrictions
Driving Restrictions: As prior to admission
Bathing Restrictions: None
Specialty Instructions: Weigh Daily- Call MD for wt gain/loss 3 lbs overnight/5 lbs in 1 week
Referrals:
Shaggy Mejia MD [Family Provider] - in less than 1 week
Prescriptions:
New
metoprolol succinate 25 mg Tablet Extended Release 24 Hr
25 mg PO BID Qty: 60 0RF
Continued
multivitamin Tablet
1 tab PO DAILY
Probiotic 10 billion cell Capsule
10,000 mmu cells PO DAILY
ascorbic acid (vitamin C) 500 mg Tablet
500 mg PO DAILY
cholecalciferol (vitamin D3) 125 mcg (5,000 unit) Tablet
125 mcg PO DAILY
Eliquis 5 mg tablet
5 mg PO BID
aspirin 81 mg Tablet,Chewable
81 mg PO DAILY Qty: 0 0RF
valsartan 40 mg tablet
40 mg PO DAILY Qty: 30 1RF
atorvastatin 40 mg Tablet
40 mg PO QPM 30 Days Qty: 30 2RF
pantoprazole 40 mg Tablet,Delayed Release (Dr/Ec)
40 mg PO DAILY Qty: 30 2RF
Discontinued
metoprolol succinate [Toprol XL] 25 mg tablet extended release 24 hr
50 mg PO DAILY
Discharge Orders:
Discharge Patient (As Directed); Ordered 11/02/24
Ordered By: Nestor Barajas
Discharge Date and Time
Print Language: BELARUSIAN
--- NOTE | 2024-11-02 12:24 | W.CARD.DEVCH ---
Cardiac Device Check
-
Device: Pacemaker
[employer]: [employer]
The patient's device was interrogated personally. Patient is noted to have biventricular pacemaker by [employer]. Patient's atrial lead is stable and has extra loop for RV and CS lead. The device had normal function. No abnormalities seen.
Patient's device was reprogrammed for coronary sinus pacing lead from LV 4 to RV coil pacing to LV3-LV4. Patient's BiV pacing also synchronized with 0 onset with the CS as patient is also equipped with left bundle branch pacing lead.
The QRS is narrow or with the current changes. EKG showing right bundle branch block pattern with excellent left ventricular capture.
Stable for discharge from cardiac standpoint.
[2024-11-02 19:15] LABS: Hepatitis C Antibody Negative (Negative)
== END 2024-11-02 13:00 | disposition home or self-care (01) ==
LOC: IVU 17:38
PROVIDERS: Nurse Practitioner Family; ADMITTING PHYSICIAN Internal Medicine; CONSULT PHYSICIAN Internal Medicine Cardiovascular Disease; EMERGENCY PHYSICIAN Emergency Medicine; FAMILY PHYSICIAN Family Medicine; OTHER PHYSICIAN Thoracic Surgery (Cardiothoracic Vascular Surgery)
DX: R07.9 Chest pain, unspecified (principal); R53.83 Other fatigue; R06.02 Shortness of breath; R00.0 Tachycardia, unspecified; R06.09 Other forms of dyspnea; R60.0 Localized edema; J90 Pleural effusion, not elsewhere classified; J98.11 Atelectasis; I49.3 Ventricular premature depolarization; E78.5 Hyperlipidemia, unspecified; I10 Essential (primary) hypertension; I25.10 Atherosclerotic heart disease of native coronary artery without angina pectoris; I48.0 Paroxysmal atrial fibrillation; R79.89 Other specified abnormal findings of blood chemistry; Z96.653 Presence of artificial knee joint, bilateral; Z87.891 Personal history of nicotine dependence; Z95.1 Presence of aortocoronary bypass graft; Z95.0 Presence of cardiac pacemaker; Z79.01 Long term (current) use of anticoagulants; Z88.6 Allergy status to analgesic agent; Z88.5 Allergy status to narcotic agent; Z88.2 Allergy status to sulfonamides; Z91.048 Other nonmedicinal substance allergy status; Z79.82 Long term (current) use of aspirin; Z90.49 Acquired absence of other specified parts of digestive tract; Z86.718 Personal history of other venous thrombosis and embolism; Z79.899 Other long term (current) drug therapy
CPT/HCPCS: 93288; 71046; 80048; 80053; 83735; 83880; 84484; 85025; 85027; 85610; 85730; 86803; 93005; 99285; G0378

== ENCOUNTER → 2024-11-17 13:42 | Outpatient (REF) | payer MEDICARE, SELFPAY | LOC: RCS 13:42 | PROVIDERS: ATTENDING PHYSICIAN Nurse Practitioner Acute Care; FAMILY PHYSICIAN Family Medicine | DX: Z98.890 Other specified postprocedural states (principal); Z95.1 Presence of aortocoronary bypass graft | CPT/HCPCS: 93306 ==

== ENCOUNTER → 2024-11-19 07:49 | Outpatient (REF) | payer MEDICARE, SELFPAY ==
[2024-11-19 09:33] LABS: TSH Reflex To Free T4 1.01 uIU/ml (0.47-4.68)
== END ==
LOC: REG 07:49
PROVIDERS: ATTENDING PHYSICIAN Nurse Practitioner; FAMILY PHYSICIAN Family Medicine
DX: R00.0 Tachycardia, unspecified (principal)
CPT/HCPCS: 36415; 84443

== ENCOUNTER → 2024-11-20 07:32 | Outpatient (REF) | payer MEDICARE, SELFPAY | LOC: RAD 07:32 | PROVIDERS: ATTENDING PHYSICIAN Nurse Practitioner; FAMILY PHYSICIAN Family Medicine | DX: R00.0 Tachycardia, unspecified (principal) | CPT/HCPCS: 71275; Q9967 ==

== ENCOUNTER 2024-12-03 08:36 | Outpatient (RCR) | payer MEDICARE, SELFPAY ==
[2024-11-19 09:04] LABS: HDL Cholesterol 63 mg/dl; LDL Cholesterol, Calculated 46 mg/dl; Total Cholesterol 122 mg/dl (50-199); Triglyceride 68 mg/dl (10-149); Very Low Density Lipoprotein 13 mg/dl (0-30)
== END 2024-12-03 23:59 | disposition home or self-care (01) ==
LOC: CRHB 08:36
PROVIDERS: ATTENDING PHYSICIAN Internal Medicine Cardiovascular Disease; FAMILY PHYSICIAN Family Medicine
DX: I25.10 Atherosclerotic heart disease of native coronary artery without angina pectoris (principal); Z95.1 Presence of aortocoronary bypass graft; Z95.4 Presence of other heart-valve replacement
CPT/HCPCS: 36415; 80061; G0422; G0423

== ENCOUNTER 2025-01-07 09:16 | Outpatient (RCR) | payer MEDICARE, SELFPAY | END 2025-01-07 23:59 | disposition home or self-care (01) | LOC: CRHB 09:16 | PROVIDERS: ATTENDING PHYSICIAN Internal Medicine Cardiovascular Disease; FAMILY PHYSICIAN Family Medicine | DX: I25.10 Atherosclerotic heart disease of native coronary artery without angina pectoris (principal); Z95.1 Presence of aortocoronary bypass graft; Z95.4 Presence of other heart-valve replacement | CPT/HCPCS: G0422; G0423 ==

== ENCOUNTER 2025-02-04 08:42 | Outpatient (RCR) | payer MEDICARE, SELFPAY | END 2025-02-04 23:59 | disposition home or self-care (01) | LOC: CRHB 08:42 | PROVIDERS: ATTENDING PHYSICIAN Internal Medicine Cardiovascular Disease; FAMILY PHYSICIAN Family Medicine | DX: I25.10 Atherosclerotic heart disease of native coronary artery without angina pectoris (principal); Z95.1 Presence of aortocoronary bypass graft; Z95.4 Presence of other heart-valve replacement | CPT/HCPCS: G0422; G0423 ==

== ENCOUNTER 2025-03-09 08:55 | Outpatient (RCR) | payer MEDICARE, SELFPAY | END 2025-03-09 23:59 | disposition home or self-care (01) | LOC: CRHB 08:55 | PROVIDERS: ATTENDING PHYSICIAN Internal Medicine Cardiovascular Disease; FAMILY PHYSICIAN Family Medicine | DX: Z95.1 Presence of aortocoronary bypass graft (principal); Z95.4 Presence of other heart-valve replacement; I25.10 Atherosclerotic heart disease of native coronary artery without angina pectoris | CPT/HCPCS: G0422; G0423 ==

== ENCOUNTER → 2025-03-11 07:34 | Outpatient (REF) | payer MEDICARE, SELFPAY ==
[2025-03-11 08:12] LABS: Hematocrit 36.3 % (39.0-52.0); Hemoglobin 12.3 g/dL (13.0-18.0); Mean Corp Hgb Conc. 33.9 g/dL (33.0-37.0); Mean Corpuscular Volume 96.3 fL (80.0-94.0); Nucleated Red Blood Cells % 0 % (-); Platelet Count 174 10^3/uL (130-400); Red Cell Dist. Width 14.0 % (11.5-14.5)
[2025-03-11 08:49] LABS: ALT (SGPT) 22 U/L (0-50); AST (SGOT) 27 U/L (17-59); Albumin 4.3 g/dl (3.5-5.0); Alkaline Phosphatase 106 U/L (38-126); Blood Urea Nitrogen 10 mg/dl (9-20); Calcium 8.9 mg/dl (8.4-10.2); Carbon Dioxide 26 mmol/L (22-30); Chloride 101 mmol/L (98-107); Glucose 85 mg/dl (70-99); HDL Cholesterol 82 mg/dl; LDL Cholesterol, Calculated 31 mg/dl; Potassium 4.2 mmol/L (3.5-5.1); Sodium 134 mmol/L (135-145); Total Protein 7.3 g/dl (6.3-8.2); Very Low Density Lipoprotein 11 mg/dl (0-30); eGFR > 60.00
[2025-03-11 13:02] LABS: PSA, Total - Screen 0.34 ng/ml (0.0-4.0)
== END ==
LOC: REG 07:34
PROVIDERS: ATTENDING PHYSICIAN Family Medicine; REFERRING PHYSICIAN Internal Medicine Cardiovascular Disease
DX: I10 Essential (primary) hypertension (principal); Z95.0 Presence of cardiac pacemaker; Z00.01 Encounter for general adult medical examination with abnormal findings; Z86.79 Personal history of other diseases of the circulatory system; H61.20 Impacted cerumen, unspecified ear; H91.90 Unspecified hearing loss, unspecified ear; L29.9 Pruritus, unspecified; Z12.5 Encounter for screening for malignant neoplasm of prostate
CPT/HCPCS: 36415; 80053; 80061; 85025; G0103

== ENCOUNTER 2025-03-11 08:19 | Outpatient (RCR) | payer MEDICARE, SELFPAY | END 2025-03-11 23:59 | disposition home or self-care (01) | LOC: CRHB 08:19 | PROVIDERS: ATTENDING PHYSICIAN Internal Medicine Cardiovascular Disease; FAMILY PHYSICIAN Family Medicine | DX: Z95.1 Presence of aortocoronary bypass graft (principal); Z95.4 Presence of other heart-valve replacement (principal); I25.10 Atherosclerotic heart disease of native coronary artery without angina pectoris | CPT/HCPCS: G0422; G0423 ==

== ENCOUNTER → 2025-04-15 11:04 | Outpatient (REF) | payer MEDICARE, SELFPAY | LOC: HWRCS 11:04 | PROVIDERS: ATTENDING PHYSICIAN Thoracic Surgery (Cardiothoracic Vascular Surgery); FAMILY PHYSICIAN Family Medicine | DX: Z98.890 Other specified postprocedural states (principal) | CPT/HCPCS: 93306 ==